=== PATIENT | female | born 1950 | race African-American/Black ===

== ENCOUNTER 2017-07-01 15:29 | Inpatient (IN) ==
[~2017-07-01 15:29] MED LIST: LIDOCAINE 100 MG/5 ML SYRINGE ONE; PROPOFOL 200 MG/20 ML VIAL IV ONE
--- NOTE | 2017-07-01 16:46 | CT Report ---
CT head/brain wo con INDICATION: Fall Headache The total DLP is 997 mGy*cm. COMPARISON: None available Technique: Serial axial tomographic images of the brain were obtained without the use of intravenous contrast. Dose reduction: This CT exam was performed using one or more of the following dose reduction techniques: Automated exposure control, automated adjustment of the mA and/or KV according to patient size, or use of iterative reconstruction technique. Findings: Mild generalized atrophy is noted with mild prominence of the sulci and cortical volume loss. Mild periventricular white matter hypodensity changes are noted bilaterally which do not demonstrate mass effect and are nonspecific but favored to represent sequela of chronic microvascular ischemia. There is no evidence of vascular territory infarct or acute intracranial hemorrhage. The zelaya-white matter differentiation is generally maintained. There is no hydrocephalus. The basilar cisterns are patent. The visualized paranasal sinuses, mastoid air cells and middle ear cavities are predominantly clear. The included orbits and their contents appear within normal limits. The visualized osseous structures and overlying soft tissues of the skull and face demonstrate no acute abnormality. IMPRESSION: No acute intracranial abnormality. PROCEDURE INTERPRETED AT [facility] DEPARTMENT OF RADIOLOGY Final Report Signed by: Brendan Orozco
--- NOTE | 2017-07-01 16:51 | CT Report ---
Indication: Fall, facial injury/pain swelling right side Comparison: None available Technique: Multiple axial tomographic thin slice images were obtained of the facial bones without the use of IV contrast. Coronal and sagittal reformations were obtained. Total DLP: 677.5 Dose reduction: This CT exam was performed using one or more of the following dose reduction techniques: Automated exposure control, automated adjustment of the mA and/or KV according to patient size, or use of iterative reconstruction technique. Findings: The orbits and orbital contents are unremarkable. The visualized paranasal sinuses, mastoid air cells and middle ear cavities are clear. The inner ear structures appear within normal limits. Mandible and temporomandibular joints appear intact and symmetric. The visualized brain parenchyma appears within normal limits. Minimal right facial soft tissue swelling is noted about the right cheek. There is extensive streak artifact from dental hardware which somewhat limits evaluation. No obvious focal soft tissue hematoma is visualized. IMPRESSION: No CT evidence of acute osseous facial injury. Right facial soft tissue swelling. PROCEDURE INTERPRETED AT [facility] DEPARTMENT OF RADIOLOGY Final Report Signed by: Brendan Orozco
[2017-07-01 17:09] LABS: Basophils % 0.3 % (0.0-0.8); Eosinophils % 0.3 % (0.00-10.9); Hematocrit 21.2 VOL% (35.7-47.0); Immature Granulocytes % 0.5 %; Immature Granulocytes Absolute 0.04 #; Lymphocytes # 0.9 10*3/uL (1.4-4.0); Lymphocytes % 12.1 % (21.3-54.2); Mean Corpuscular HGB Conc 29.2 GM/DL (32-36); Mean Corpuscular Hemoglobin 25 PG (27-34); Mean Corpuscular Volume 86.2 FL (87-102); Mean Platelet Volume 10.8 FL (9.6-12.0); Monocytes # 0.5 10*3/uL (0.11-0.8); Monocytes % 7.1 % (1.7-12.7); NRBC # 0.02 10*3/uL; Neutrophils # 5.9 10*3/uL (1.4-7.4); Neutrophils % 79.7 % (38.7-73.9); Platelet Count 242 T/CUMM (130-400); Red Blood Count 2.46 MC/CUMM (3.8-5.5); Red Cell Distribution Width 20.3 % (9.3-17.3); White Blood Count 7.4 T/CUMM (4-12)
[2017-07-01 17:13] LABS: Hemoglobin 6.2 GM/DL (12.0-16.0)
[2017-07-01 17:34] LABS: Albumin 3.4 G/DL (3.4-5.0); Bilirubin,Total 1.2 MG/DL (0.2-1.0); Calcium 8.9 MG/DL (8.5-10.1); Osmolality,Calculated 267.1 MOS/KG (273-304); Potassium 3.5 MMOL/L (3.5-5.1); Total Protein 7.9 G/DL (6.4-8.3)
[2017-07-01] MEDS ORDERED: LORazepam 2 MG/1 ML VIAL IV PRN (17:41)
[2017-07-01] MEDS ORDERED: SODIUM CHLORIDE 0.9% 250 ML IV PRN (17:42)
[2017-07-01] MEDS ORDERED: ONDANSETRON 4 MG/2 ML VIAL IV PRN (17:42)
--- NOTE | 2017-07-01 17:54 | Emergency Department Note ---
IYvon Emily, am scribing for, and in the presence of, Stu Pagan MD 16:11. ILatasha Phillip K, MD, personally performed the services described in this documentation, ascribed by Lula Sanz in my presence, and it is both accurate and complete 754 . Arrival - Arrival Chief Complaint: Fall Stated Complaint: falls ED Nursing Triage Note: Pt arrived via ems with complaint of frequent falls. Family reports ETOH abuse that has resulted in these frequent falls. Pt states she's stressed out. States her equilibrium is off and that's why she has been falling. PMH: cabg, htn, cad, arthritis, bronchitis. Pt just moved her approx 1 month ago-- no PCP here. Pt smells of alcohol. EMS reports several empty bottles of vodka. Mode of Arrival: Stretcher Limitations: No Limitations Source: Patient - History of Present Illness HPI Narrative: Pt is a 66 y/o female who came to ED by EMS for further evaluation of syncopal episode that happened this afternoon. Pt notes having hx of "black outs" in the past. Pt states maintenance ijeoma saw episode while installing microwave while in room at [facility]. States her equilibrium is off and that's why she has been falling. PMH: CABG, HTN, CAD,HLD, arthritis, bronchitis , gout, anemic. Pt just moved her approx 1 month ago. Pt admits to decreasing tobacco smoking a day, but drinks ETOH of beer and vodka 3x day. Pt notes drinking before syncopal episode. Pt c/o right sided facial pain. Pt notes having "knot" in head since last year that never completely healed. Onset (ago): hour(s) Consistency: constant Severity: mild, moderate Severity scale (1-10): 4 Quality: aching Allergies/Adverse Reactions: Allergies Allergy/AdvReac Type Severity Reaction Status Date / Time acetaminophen [From Percocet] Allergy Unknown/Unable Verified 07/01/17 15:38 to obtain Iodinated Contrast Media - Allergy Unknown/Unable Verified 07/01/17 15:38 Oral and to obtain iron Allergy Unknown/Unable Verified 07/01/17 15:38 to obtain Oxycodone [From Percocet] Allergy Unknown/Unable Verified 07/01/17 15:38 to obtain Shellfish Allergy Unknown/Unable Verified 07/01/17 15:38 to obtain Review of System - Review of System 12 point system: reviewed and no additional remarkable complaints except as stated Medical,Surgical,& Family Hx - Medical History Cardio: History of: Cerebrovascular Disease, CAD, Hypertension, Cardiovascular Problems Endocrine: History of: Dyslipidemia Gastrointestinal: History of: Diverticulitis/ Diverticulosis - Surgical History Cardiac Surgeries: Sugical HX of: Cardiac Surgery - Social History Smoking Status: Smoker, status unknown Frequency of Alcohol Use: Frequently Type of Drug Use: None Marital Status: Single Lives With:: [facility] Functional capacity: independent ambulation Exam Vital Signs: Vital Signs Temperature 97.9 F 07/01/17 15:30 Pulse Rate 76 07/01/17 17:00 Respiratory Rate 17 07/01/17 17:00 Blood Pressure 122/75 07/01/17 17:00 O2 Sat by Pulse Oximetry 99 07/01/17 17:00 - General General appearance: alert, in no apparent distress, appears intoxicated - Head Head exam: Present: atraumatic, normocephalic, other (ecchymosis and mild edema to right side of face) - Eye Eye exam: Present: PERRL, EOMI, scleral icterus (mild), other - ENT ENT exam: Present: mucous membranes moist. Absent: mucous membranes dry - Neck Neck exam: Present: full ROM, trachea midline. Absent: tenderness - Chest Chest inspection: Present: symmetric chest wall rise. Absent: tenderness - Respiratory Respiratory exam: Present: normal lung sounds bilaterally. Absent: respiratory distress - Cardiovascular Cardiovascular exam: Present: regular rate, normal rhythm, normal heart sounds - Extremities Exam Extremities exam: Present: full ROM. Absent: pedal edema - Neurological Exam Neurological exam: Present: alert, oriented X3, CN II-XII intact. Absent: motor sensory deficit - Psychiatric Psychiatric exam: Present: normal affect, normal mood - Skin Skin exam: Present: warm, dry Results - Labs CBC & BMP: 07/01/17 16:56 07/01/17 16:56 Lab Results: I have reviewed the patients labs Labs: Laboratory Tests 07/01/17 16:56 WBC 7.4 RBC 2.46 L Hgb 6.2 L* Hct 21.2 L MCV 86.2 L MCH 25 L MCHC 29.2 L RDW 20.3 H Plt Count 242 Neut % (Auto) 79.7 H Lymph % (Auto) 12.1 L Lymph # (Auto) 0.9 L Laboratory Tests 07/01/17 16:56 Sodium 135 L Potassium 3.5 Chloride 99 Carbon Dioxide 23 Anion Gap 16.5 H BUN 10 Creatinine 0.80 GFR Calculation 90 BUN/Creatinine Ratio 12.00 Glucose 83 Calculated Osmolality 267.1 L Calcium 8.9 Total Bilirubin 1.20 H AST 98 H ALT 159 H Alkaline Phosphatase 211 H Total Protein 7.9 Albumin 3.4 Globulin 4.5 H Albumin/Globulin Ratio 0.7 L Serum Alcohol 285 - Diagnostic Findings Procedure: CT: report reviewed by me (Face: No CT evidence of acute osseous facial injury. Right facial soft tissue swelling. Head wo con: No acute intracranial abnormality.) Disposition Clinical Impression: Syncope, Alcohol abuse, Anemia Case discussed with: patient, patient's family Disposition: Still a Patient Condition: Guarded Additional Instructions: Admit to the hospitalist.
[2017-07-01 18:06] LABS: % Iron Saturation 10.9 % (18-50); Ferritin 44.8 ng/ml (8-252)
--- NOTE | 2017-07-01 18:20 | Hospitalist History & Physical ---
Assessment and Plan (1) Alcohol abuse Status: Acute Assessment and plan: At the time of ED presentation, the patient was grossly intoxicated with an alcohol level reported at 285. The patient reported that she drinks daily; however denies any issues when she does not drink. We will start the CIWA withdrawal protocol. We will provide vitamin supplementation and monitor for impending signs or symptoms of delirium tremens. Current Visit: Yes (2) Anemia Status: Acute Assessment and plan: The patient was grossly anemic at the time of ED presentation; with a hemoglobin hematocrit noted at 6.2 and 21.2. The patient reports that she is chronically anemic and was ordered to take iron supplements. We will type and screen and transfuse 2 units PRBCs. In addition, the patient reported that she has a previous medical history of diverticulitis and gastroesophageal reflux disease; which we will consult gastroenterology to evaluate and assist. Current Visit: Yes Qualifiers: Anemia type: unspecified type Qualified Code(s): D64.9 - Anemia, unspecified (3) Syncope Status: Acute Assessment and plan: The patient reported multiple episodes of "blacking out" in the past. Due to the severity of the patient's alcoholism, this may be largely attributed to alcohol intoxication. However, the patient has a medical history significant for coronary artery disease and hyperlipidemia. We will perform a syncope workup; carotid Doppler studies and echocardiogram. We will provide supportive care. Current Visit: Yes Qualifiers: Syncope type: unspecified Qualified Code(s): R55 - Syncope and collapse (4) Medical non-compliance Status: Acute Assessment and plan: The patient's family member was present at bedside. The family member voiced multiple concerns regarding the patient's current status. They reported that the patient had been living alone in [place] for several years and seemingly lost interest in her care. They became concerned about the patient's overall well-being and brought the patient back to [place] 1 month ago. They report that the patient has suffered from depression for many years and has been largely noncompliant for the last couple of years. At the time of ED presentation, the family presented with the patient's home medications all of which were nearly full. We will consult oncology social worker to evaluate the patient 's current living situation. Current Visit: Yes History of Present Illness Chief complaint: Fall History of present illness: This is a very pleasant 66-year-old female that presented to the ED at [facility] this afternoon via EMS for the evaluation of a fall. The patient has a medical history significant for coronary artery disease, hyperlipidemia, gastroesophageal reflux disease, depression, diverticulitis, hypothyroidism, gouty arthritis, nicotine addiction, anemia, and alcohol abuse. Patient has surgical history significant for coronary artery bypass graft in 2010 and tubal ligation. The patient is a resident at [facility]. Apparently, the patient was observed following by the maintenance staff at the facility. He proceeded to notify the staff who then in turn called 911. The patient was subsequently transported to [facility] for further evaluation. The patient was assessed at the time of ED presentation. The patient reported that she has had a long-standing history of "blackouts". She reported that her "equilibrium has been off" and attributed this to her recurrent falls. In addition, the EMS staff reported the presence of multiple empty bottles of vodka surrounding the patient at the time of arrival. When asked, the patient reports that she drinks "beer and vodka 3 times a day". In addition, reported that she had been previously drinking prior to the fall and complaint of right- sided facial pain. Labs were obtained at the time of ED presentation which were significant for hemoglobin 6.2, hematocrit 21.2, sodium 135, anion gap 16.5, calculated osmolality 267.1, TIBC 477, percent saturation 10.9, total bilirubin 1.20, AST 98, ALT 159, alkaline phosphatase 211, and lipase at 314. Serum alcohol level was noted at 285. CT face was unremarkable for the presence of any evidence of acute osseous facial injury. CT head was unremarkable for any acute intracranial abnormality. After brief discussion with both Dr. Pagan and Dr. Diaz, the patient will be admitted to the hospitalist service for continuation of care. Due to the patient's underlying alcohol addiction, we will initiate the [place] withdrawal protocol. In addition, we will consult gastroenterology to evaluate and assist during the clinical encounter. The patient's home medications have been reviewed and reconciled. CODE STATUS discussed; patient is a FULL CODE. The patient's family member was present at bedside. The family member voiced multiple concerns regarding the patient's current status. They reported that the patient had been living alone in [place] for several years and seemingly lost interest in her care. They became concerned about the patient's overall well-being and brought the patient back to [place] 1 month ago. They report that the patient has suffered from depression for many years and has been largely noncompliant for the last couple of years. At the time of ED presentation, the family presented with the patient's home medications all of which were nearly full. We will consult oncology social worker to evaluate the patient 's current living situation. Home Medications Medication Instructions Recorded Confirmed Type Allopurinol 100 mg PO DAILY 07/01/17 07/01/17 History Citalopram [CeleXA] 20 mg PO DAILY 07/01/17 07/01/17 History Esomeprazole Magnesium 40 mg PO BID 07/01/17 07/01/17 History [Esomeprazole] Ferrous Sulfate [Iron] 325 mg PO DAILY 07/01/17 07/01/17 History Folic Acid Tab 1 mg PO DAILY 07/01/17 07/01/17 History Levothyroxine Tab [Synthroid Tab] 200 mcg PO DAILY@0700 07/01/17 07/01/17 History Losartan [Cozaar] 25 mg PO DAILY 07/01/17 07/01/17 History Pregabalin [Lyrica] 50 mg PO TID 07/01/17 07/01/17 History Rosuvastatin Calcium [Crestor] 40 mg PO QPM 07/01/17 07/01/17 History traMADol TAB [Ultram] 50 mg PO Q6H PRN 07/01/17 07/01/17 History Allergies Allergy/AdvReac Type Severity Reaction Status Date / Time acetaminophen [From Percocet] Allergy Unknown/Unable Verified 07/01/17 15:38 to obtain Iodinated Contrast Media - Allergy Unknown/Unable Verified 07/01/17 15:38 Oral and to obtain iron Allergy Unknown/Unable Verified 07/01/17 15:38 to obtain Oxycodone [From Percocet] Allergy Unknown/Unable Verified 07/01/17 15:38 to obtain Shellfish Allergy Unknown/Unable Verified 07/01/17 15:38 to obtain Medical,Surgical,& Family Hx - Medical History Cardio: History of: Cerebrovascular Disease, CAD, Hypertension, Cardiovascular Problems Endocrine: History of: Dyslipidemia, Thyroid Disorder (Hypothyroid) Gastrointestinal: History of: Diverticulitis/ Diverticulosis, GERD Musculoskeletal: History of: Musculoskeletal Problems (Gouty arthritis) Hematology: History of: Anemia - Surgical History Cardiac Surgeries: Sugical HX of: Cardiac Surgery - Family History Family History: Reports;: Family Cancer, Family Heart Disease, Family Hypertension - Social History Smoking Status: Current every day smoker Have you smoked in the last 12 months: Yes Time spent discussing smoking cessation with patient: 3 to 10 minutes Frequency of Alcohol Use: Frequently Type of Drug Use: None Marital Status: Single Lives With:: Alone Functional capacity: uses cane/walker 12 point system: reviewed and no additional remarkable complaints except as stated - Constitutional Constitutional: Present: frequent falls - Neurological Neurological: Present: frequent falls - Psychiatric Psychiatric: Present: depression Exam - Constitutional Vitals: Period Temp Pulse Resp BP Sys/Cortes Pulse Ox Last 24 Hr 97.9 F-97.9 F 74-78 14-28 100-140/64-89 98-100 General appearance: normal weight, no acute distress - Head Head exam: Present: normal inspection, normocephalic, atraumatic - Eye Eye exam: Present: EOMI, conjunctival injection, other (Abrasion noted to the right eye or) Pupils: Present: KASANDRA, normal accommodation - ENT ENT exam: Present: normal exam, normal external ear exam, normal oropharynx - Neck Neck exam: Present: normal inspection. Absent: lymphadenopathy, meningismus, tenderness, thyromegaly - Respiratory Respiratory exam: Present: clear to auscultation bilaterally. Absent: rales, rhonchi, stridor, wheezes - Cardiovascular Cardiovascular exam: Present: regular rate and rhythm. Absent: carotid bruit, diastolic murmur, gallop, JVD, rubs, systolic murmur - GI/Abdominal GI/Abdominal exam: Present: normal bowel sounds, rebound - Extremities Exam Extremities exam: Present: normal inspection, normal capillary refill, full ROM. Absent: edema - Back Exam Back exam: Present: normal inspection - Neurological Exam Neurological exam: Present: alert, oriented X3, CN II-XII intact - Psychiatric Psychiatric exam: Present: flat affect - Skin Skin exam: Present: normal color, warm, dry Results - Labs CBC & BMP: 07/01/17 16:56 07/01/17 16:56 Lab Results: I have reviewed the past 24 hour labs
[2017-07-01 18:49] LABS: Folate 18.3 NG/ML (5.4-24.0)
[2017-07-01] MEDS ORDERED: NON-FORMULARY MEDICATION (Esomeprazole Magnesium [Esomeprazole] 40 MG) PO PRN (19:38)
[2017-07-01] MEDS: SODIUM CHLORIDE 0.9% 1,000 ML IV SCH (20:14)
--- NOTE | 2017-07-01 20:15 | Gastrointestinal Consult Note ---
Assessment and Plan (1) Gastrointestinal hemorrhage with melena Status: Acute Assessment and plan: This patient states that she has had previous workup done at [facility] with upper endoscopy for ulcers in the past and that these did require treatment. Is unclear if alcohol played a major part in these previous evaluations and the patient does not seem to admit to any esophageal varices requiring banding's. Her platelet level is normal and this tends to rule against cirrhosis as does her normal MCV level. There is an element of iron deficiency present this may be partially treated. The patient states that she is typically on Nexium and this suppresses her heartburn, but it is unclear whether this is a medication she takes regularly as she has a history of noncompliance. Patient understands there are risks with endoscopy and these include: Bleeding, infection, perforation, cardiac and pulmonary compromise. Patient is to undergo a repeat upper endoscopy tomorrow at sometime between 0730 and 0930. Differential diagnosis includes esophageal or gastric cancer, Veronica-Palomino tear, variceal bleeding, erosive gastritis or duodenitis or esophagitis, AVMs, Dieulafoy's lesion and peptic ulcer disease. Current Visit: Yes (2) Acute posthemorrhagic anemia Status: Acute Assessment and plan: Patient certainly has melena on physical examination she is due to get 2 units packed red blood cells tonight. Upper endoscopy to take place tomorrow morning as mentioned above. Current Visit: Yes (3) Alcoholism Status: Acute Assessment and plan: This patient has elevations in her liver function tests that appear perhaps more consistent with a viral hepatitis given the ALT predominance. I will go ahead and check a hepatitis A, B, and C panel to this end. We will try and obtain records from [facility] considering patient's endoscopy and GI workup. Alcohol withdrawal may take place the next 48-72 hours now that she is no longer drinking--we will need to watch for this. The patient has rather poor insight concerning her drinking and we will need to reinforce the need to be off of all alcohol intake. Current Visit: Yes (4) Abnormal weight loss Status: Acute Assessment and plan: If the patient has had previous colonoscopy done to rule out colon cancer and previous upper endoscopy we might want to obtain biopsies for celiac sprue given her abnormal weight loss. This may be related purely to depression or perhaps suppression of the appetite due to the alcohol intake or other factors unrelated such as thyroid dysfunction. Will continue to monitor weight loss over time. Currently the patient's has dropped from her baseline of 170 down to 137 she states over the last 3 months. We will have to watch her appetite and see if these losses continue once the patient has more routine access to solid food. Current Visit: Yes History of Present Illness Chief complaint: Melena, grossly guaiac positive, hematocrit of 21.2%, alcoholism History of present illness: Ms. Mallika Wiggins is a 66 year old female who is an interesting moderately demented lady who until recently lived in [facility] and states that she had had a cardiac bypass and a been on number of blood pressure medications which were unfortunately contributing to her dizziness and minimizes her drinking in the extreme. There were no other family members in the room to provide additional history and so history is taken from Dr. Haq's H&P. She states that she has had black stools over, and that she has a history of ulcers in the past the last few weeks but did not elaborate as to whether or not she had previously been diagnosed with Helicobacter pylori or whether these were due entirely to alcoholic gastritis. She is not having any abdominal pain nausea or vomiting she states. She does not recognize the term esophageal varices and does not think that she is ever been banded for same. She says that she is undergone endoscopy 3 times in the past--all of these done at [facility] in [place], other than the ulcers she cannot elaborate as to what else was discovered. She was surprised to hear that her hematocrit was as low as 21.2% with a hemoglobin of 6.2 at this time. She is getting 2 units of packed red blood cells now and is discovered to have grossly guaiac positive black stools on physical exam and will require upper endoscopy tomorrow in order to elucidate the cause. The patient states that she did have reflux prior to being started on Nexium but takes this chronically. She states that she avoids NSAIDs fastidiously although she does have a history of gout. She states that her weight is certainly dropped over the last 3 months going down from 170 pounds at her baseline to 137 pounds currently. She denies diarrhea and constipation. She states that she might have blacked out today but denies this had anything to do with the amount of consumed alcohol discovered by her family. She insists that she only drinks approximately a pint of vodka per day at least to Dr. Haq and the nursing staff to me she stated this was actually a pint a week. The patient does have what appears to be a partially treated iron deficiency anemia with an iron saturation of 10.9. ALT was 159 with an AST of 98 and alkaline phosphatase of 211 with a bilirubin of 1.2. B12 level was normal as was folate. The patient's hematocrit was 21.2 with a hemoglobin of 6.2 and MCV of 86.2 RDW is 20.3 and white blood cell count 7.4 with a platelet count 242. Home Medications Medication Instructions Recorded Confirmed Type Allopurinol 100 mg PO QAM 07/01/17 07/01/17 History Citalopram [CeleXA] 20 mg PO QAM 07/01/17 07/01/17 History Esomeprazole Magnesium 40 mg PO BID PRN 07/01/17 07/01/17 History [Esomeprazole] Ferrous Sulfate [Iron] 325 mg PO QAM 07/01/17 07/01/17 History Folic Acid Tab 1 mg PO QAM 07/01/17 07/01/17 History Levothyroxine Tab [Synthroid Tab] 200 mcg PO DAILY@0700 07/01/17 07/01/17 History Losartan [Cozaar] 25 mg PO QAM 07/01/17 07/01/17 History Rosuvastatin Calcium [Crestor] 40 mg PO QAM 07/01/17 07/01/17 History Allergies Allergy/AdvReac Type Severity Reaction Status Date / Time acetaminophen [From Percocet] Allergy Unknown/Unable Verified 07/01/17 15:38 to obtain Iodinated Contrast Media - Allergy Unknown/Unable Verified 07/01/17 15:38 Oral and to obtain iron Allergy Unknown/Unable Verified 07/01/17 15:38 to obtain Oxycodone [From Percocet] Allergy Unknown/Unable Verified 07/01/17 15:38 to obtain Shellfish Allergy Unknown/Unable Verified 07/01/17 15:38 to obtain Medical,Surgical,& Family Hx - Medical History Cardio: History of: Cerebrovascular Disease, CAD, Hypertension, Cardiovascular Problems Endocrine: History of: Dyslipidemia, Thyroid Disorder (Hypothyroid) Gastrointestinal: History of: Diverticulitis/ Diverticulosis, GERD Musculoskeletal: History of: Musculoskeletal Problems (Gouty arthritis) Hematology: History of: Anemia - Surgical History Cardiac Surgeries: Sugical HX of: Cardiac Surgery - Family History Family History: Reports;: Family Cancer, Family Heart Disease, Family Hypertension - Social History Smoking Status: Light tobacco smoker Frequency of Alcohol Use: Frequently Type of Drug Use: None Review of systems: Constitutional: Denies fever, chills, nausea, and vomiting Eyes: Denies dry eyes, and scleral icterus HENT: Patient does have occasional headaches Cardiovascular: Denies acute chest pain and claudication Respiratory: Denies shortness of breath, wheezing, and difficulty breathing, denies cough Gastrointestinal: As noted in the HPI Genitourinary: Denies dysuria and hematuria Neurologic: Denies vision loss, and loss of sensation Musculoskeletal: Denies joint swelling, joint stiffness, and muscular weakness Psychiatric: Patient does complain of some depression but no avelino symptoms , she does have alcoholism and insomnia. Heme-Lymph: Denies easy bruising, lymph node enlargement or tenderness, night sweats, excessive bleeding Allergies-immunologic: Denies pruritus and rhinorrhea Exam - Constitutional Vitals: Period Temp Pulse Resp BP Sys/Cortes Pulse Ox Last 24 Hr 97.6 F-97.9 F 74-81 14-28 100-140/64-89 98-100 Exam: Constitutional: Well-developed, well-nourished, alert, and in no acute distress Head and face: Head: Normocephalic atraumatic Eyes: Conjunctiva without injection, no gross scleral icterus, pupils equal and round bilaterally Ears: Intact to conversation in both ears Nose: External appearance is normal, nares patent Mouth: Oral mucous membranes moist without erythema dentition noted to be without erosion Neck: Normal appearance, no masses or tenderness, trachea midline Thyroid: Gland midline and appropriate size for age Respiratory: Normal respiratory effort, clear to auscultation without wheezes, rhonchi or rales Cardiovascular: Regular rate and rhythm, normal S1, S2, the exam is without rubs, murmurs or gallops. Gastrointestinal: Nontender to palpation, normal active bowel sounds, tone normal without rigidity or guarding, no masses present, no hepatomegaly, no spleen tip felt. Rectal examination showed slightly decreased tone, redundancy of hemorrhoidal tissue and black stools that were grossly guaiac positive. No caput medusa Lymphatic: Neck without adenopathy, axilla without lymphadenopathy present Musculoskeletal: Right and left lower extremities without evidence of edema Skin and subcutaneous tissue: No rashes or ulcerations noted, normal skin turgor, digits and nails without clubbing/cyanosis/deformities. Neurologic: The patient is grossly oriented to person place and time, cranial nerves show tongue movements are normal with normal tongue extrusion midline, light touch sensation is intact. I could not elicit any asterixis or clonus. Psychiatric: No hallucinations or delusions are present, does not appear depressed--the patient appears to have some dementia and as well as flight of ideas and is extremely loquacious. Results - Labs CBC & BMP: 07/01/17 16:56 07/01/17 16:56
[2017-07-01] MEDS: PANTOPRAZOLE 40 MG TABLET PO SCH (21:05)
[2017-07-01] MEDS: chlordiazePOXIDE 25 MG CAPSULE PO SCH (21:05)
[2017-07-01 21:38] LABS: Hematocrit 20.4 VOL% (35.7-47.0)
[2017-07-01 21:44] LABS: Hemoglobin 5.8 GM/DL (12.0-16.0)
[2017-07-01] MEDS: THIAMINE INJ 100 MG, FOLIC ACID INJ 1 MG, MULTIVITAMIN INJ 10 ML in SODIUM CHLORIDE 0.9... IV SCH (23:50)
--- NOTE | 2017-07-02 08:11 | Ultrasound Report ---
Exam: US carotid duplex BI Date: 07/02/2017 656 AM Indication: Syncope Findings: Grayscale color flow analysis and spectral analysis imaging was performed with image stored and captured. Right Side Flow velocities centimeters per second Common carotid artery: 52.0 Proximal ICA: 68.6 Distal ICA: 47.7 External carotid artery: 92.1 Vertebral artery: 37.7 ICA/CCA ratio: 1.3 Measurements in millimeters Distal ICA: 4.9 Left SIde Flow velocities centimeters per second Common carotid artery: 59.4 Proximal ICA: 92.7 Distal ICA: 74.1 External carotid artery: 118.3 Vertebral artery: 13.7 ICA/CCA ratio: 1.2 Measurements in millimeters Distal ICA: 5.3 Triphasic waveforms are present. Atherosclerotic plaque present in the right carotid bulb with intimal hyperplasia present in the common carotid artery on the right. Plaque is present in the left carotid bulb and takeoff the internal carotid artery. Impression: 1. 16-49% stenosis based on the today's evaluation with moderate plaque present right greater than left. If further evaluation is deemed necessary CT angiography may be beneficial Today studies were performed utilizing indirect NASCET criteria The ultrasound images were stored and captured PROCEDURE INTERPRETED AT [facility] DEPARTMENT OF RADIOLOGY Final Report Signed by: Dr. Ryley Zendejas
[2017-07-02] MEDS ORDERED: PANTOPRAZOLE 40 MG TABLET PO SCH (09:00)
--- NOTE | 2017-07-02 09:10 | Operative Note ---
Date of procedure: 07/02/17 Pre-op diagnosis: Melena and drop in hematocrit to 20% Post-op diagnosis: other (No gross evidence of bleeding in the esophagus or stomach, certainly not enough to cause this level of anemia with hematocrit 20% . This may be a Dieulafoy's lesion or nutritional anemia with bone marrow suppression by alcohol. Suggest standard reticulocyte count, will obtain bleeding scan if her hematocrit does not respond adequately to the units transfused thus far. Multiple biopsies taken and so bleeding scan will not be helpful as it will show upper GI bleeding as a result of these biopsies. We may wish to consider capsule endoscopy if the colonoscopy from [facility] was adequate) Procedure: PROCEDURE: Esophagogastroduodenoscopy (EGD) with cold biopsy for pathology REFERRING PHYSICIAN: Tawny Reyes MD INDICATIONS: This is a patient who has had previous GI workup at [facility] in [place] with upper and lower endoscopies. She was told that she has ulcers. She has a history of alcohol use with daily vodka approximately a pint, by report the prior H&P was reviewed and interrim changes are as noted: No change from GI consultation yesterday ENDOSCOPIST: Alan Duncan MD ENDOSCOPE: Olympus Video 100 System upper endoscope ASA CLASS: 3 EXAM: CV: regular rate and rhythm respiratory: Clear without wheezes abdominal: active bowel sounds MEDICATION: Per nursing anesthesia protocol, see their notes PROCEDURE: After discussion of the potential risks and benefits of upper endoscopy, the informed consent was obtained. The patient was then placed in the left lateral decubitus position where sedation was achieved as noted above. Esophageal intubation was performed without difficulty, and the endoscope was advanced through the esophagus, stomach and duodenum. A slow withdrawal was then performed with retroflexion in the stomach for careful inspection of the incisura angularis, fundus and cardia. The scope was then returned to a neutral position and withdrawn through the esophagus. The patient tolerated the procedure well and without complication. BIOPSIES: Gastric antrum/body and duodenum PHOTOGRAPHS: Obtained FINDINGS: Hypopharynx and Larynx: Normal Esohagoscopy Upper and middle thirds: Normal Lower third mild LA class A distal esophagitis 1 cm Esophogastric junctions: No gross evidence of Veronica-Palomino tear, stricturing, bleeding source Gastroscopy: Cardia/Fundus: 2 cm hiatal hernia, sliding-type, scant amount of retained food in the fundus/body Body: Moderate patchy nonerosive gastritis, biopsied Antrum and pylorus moderate patchy nonerosive gastritis, biopsied Duodenoscopy: Bulb Patient had areas of villous loss suspicious for sprue, biopsied Second and third portions: This patient had some villous loss suspicious for celiac sprue, biopsied IMPRESSION: No gross evidence of bleeding in the esophagus or stomach, certainly not enough to cause this level of anemia with hematocrit 20%. This may be a Dieulafoy's lesion or nutritional anemia with bone marrow suppression by alcohol. Suggest standard reticulocyte count, will obtain bleeding scan if her hematocrit does not respond adequately to the units transfused thus far. Multiple biopsies taken and so bleeding scan will not be helpful as it will show upper GI bleeding as a result of these biopsies. We may wish to consider capsule endoscopy if the colonoscopy from [facility] was adequate RECOMMENDATIONS: Follow up for biopsy results in 1-2 weeks by phone [phone] Continue anti-gastroesophageal reflux measures (avoid carbonated and acidic beverages, avoid eating within 2 hours of bedtime, avoid tight fitting clothing , and elevate the front bed posts 6 inches prior to sleeping. Obtain old records from [facility] Observe patient's hematocrit as she begins to eat again. Await biopsies taken for celiac sprue. Consider capsule endoscopy if patient continues to have blood loss. Continue Protonix 40 mg at least once daily. Alan Duncan MD COPY TO: Tawny Reyes MD Anesthesia: MAC Surgeon / Physician: Alan Duncan Estimated blood loss: minimal Specimens: other (Gastric antrum/body and duodenum) Condition: stable Disposition: post procedure unit (G[facility]I. Suite) Results - Labs CBC & BMP: 07/01/17 21:31 07/01/17 16:56 Discharge Plan - Discharge Medications No Action Folic Acid Tab 1 mg PO QAM Rosuvastatin Calcium [Crestor] 40 mg PO QAM Esomeprazole Magnesium [Esomeprazole] 40 mg PO BID PRN PRN Reason: acid reflux Levothyroxine Tab [Synthroid Tab] 200 mcg PO DAILY@0700 Citalopram [CeleXA] 20 mg PO QAM Ferrous Sulfate [Iron] 325 mg PO QAM Allopurinol 100 mg PO QAM Losartan [Cozaar] 25 mg PO QAM Pregabalin [Lyrica] 50 mg PO TID Tramadol HCl [Tramadol Tab] 50 tablet PO Q6HR PRN PRN Reason: Pain - Follow Up or Referral - Forms/Instructions
--- NOTE | 2017-07-02 09:13 | Gastrointestinal Progress Note ---
Assessment and Plan (1) Gastrointestinal hemorrhage with melena Status: Acute Assessment and plan: This patient states that she has had previous workup done at [facility] with upper endoscopy for ulcers in the past and that these did require treatment. Is unclear if alcohol played a major part in these previous evaluations and the patient does not seem to admit to any esophageal varices requiring banding's. Her platelet level is normal and this tends to rule against cirrhosis as does her normal MCV level. There is an element of iron deficiency present this may be partially treated. The patient states that she is typically on Nexium and this suppresses her heartburn, but it is unclear whether this is a medication she takes regularly as she has a history of noncompliance. Patient understands there are risks with endoscopy and these include: Bleeding, infection, perforation, cardiac and pulmonary compromise. Patient is to undergo a repeat upper endoscopy tomorrow at sometime between 0730 and 0930. Differential diagnosis includes esophageal or gastric cancer, Veronica-Palomino tear, variceal bleeding, erosive gastritis or duodenitis or esophagitis, AVMs, Dieulafoy's lesion and peptic ulcer disease. 07/02/17--The patient underwent upper endoscopy this morning and this did not show a gross bleeding or an obvious source of the patient's blood loss-- findings are as follows: No gross evidence of bleeding in the esophagus or stomach, certainly not enough to cause this level of anemia with hematocrit 20% . This may be a Dieulafoy's lesion or nutritional anemia with bone marrow suppression by alcohol. Suggest standard reticulocyte count, we might want to obtain bleeding scan if her hematocrit does not respond adequately to the units transfused thus far. I am concerned that if we order the bleeding scan now that the previously obtained biopsies would make this falsely positive in the upper GI tract. We may wish to consider capsule endoscopy if the colonoscopy from [facility] was adequate Current Visit: Yes (2) Acute posthemorrhagic anemia Status: Acute Assessment and plan: Patient certainly has melena on physical examination she is due to get 2 units packed red blood cells tonight. Upper endoscopy to take place tomorrow morning as mentioned above. 07/02/17--observe for further blood loss, await hematocrits from today status post 2 unit transfusion. Current Visit: Yes (3) Alcoholism Status: Acute Assessment and plan: This patient has elevations in her liver function tests that appear perhaps more consistent with a viral hepatitis given the ALT predominance. I will go ahead and check a hepatitis A, B, and C panel to this end. We will try and obtain records from [facility] considering patient's endoscopy and GI workup. Alcohol withdrawal may take place the next 48-72 hours now that she is no longer drinking--we will need to watch for this. The patient has rather poor insight concerning her drinking and we will need to reinforce the need to be off of all alcohol intake. 07/02/17--Continue to observe this patient to see if she goes into the delirium tremens considering her alcohol intake at home. Check hepatitis A, B, and C panel. Current Visit: Yes (4) Abnormal weight loss Status: Acute Assessment and plan: If the patient has had previous colonoscopy done to rule out colon cancer and previous upper endoscopy we might want to obtain biopsies for celiac sprue given her abnormal weight loss. This may be related purely to depression or perhaps suppression of the appetite due to the alcohol intake or other factors unrelated such as thyroid dysfunction. Will continue to monitor weight loss over time. Currently the patient's has dropped from her baseline of 170 down to 137 she states over the last 3 months. We will have to watch her appetite and see if these losses continue once the patient has more routine access to solid food. 07/02/17--We Will see this patient low-sodium diet today and check her appetite-- she is typically on Nexium at home. Check for celiac sprue during biopsies taken today from the endoscopy. Current Visit: Yes Gastroenterology - PN: Subj Interval history: The patient has no new complaints. She did get transfused yesterday but no new hematocrits have been reported yet. It looks like these are not going to be done until 08:30. Exam (Progress Note) - Constitutional Vitals: Period Temp Pulse Resp BP Sys/Cortes Pulse Ox Last 24 Hr 97.3 F-98.3 F 74-96 14-28 75-145/49-99 94-100 General appearance: no acute distress - Eye Eye exam: Present: EOMI - Respiratory Respiratory exam: Present: clear to auscultation bilaterally. Absent: rhonchi, stridor, wheezes - GI/Abdominal GI/Abdominal exam: Present: normal bowel sounds, tenderness (Mild in the epigastric region), soft. Absent: distended, firm, rebound - Neurological Exam Neurological exam: Present: alert, oriented X3, altered (Mild to moderately confused at times) - Psychiatric Psychiatric exam: Present: normal affect, normal mood - Skin Skin exam: Present: warm Results - Labs CBC & BMP: 07/01/17 21:31 07/01/17 16:56
--- NOTE | 2017-07-02 09:13 | Anesthesia Post-Op ---
Anesthesia Post OP - Post Ansesthetic Evaluation Patient seen in post op: Yes Resp: within normal limits CV: within normal limits Mental: within normal limits Temp: within normal limits [id number]: within normal limits Nausea and Vomiting: within normal limits Pain: within normal limits
--- NOTE | 2017-07-02 09:43 | Hospitalist Progress Note ---
Assessment and Plan (1) Alcohol abuse Status: Acute Assessment and plan: At the time of ED presentation, the patient was grossly intoxicated with an alcohol level reported at 285. The patient reported that she drinks daily; however denies any issues when she does not drink. We will start the CIWA withdrawal protocol. We will provide vitamin supplementation and monitor for impending signs or symptoms of delirium tremens. Current Visit: Yes (2) Anemia Status: Acute Assessment and plan: The patient was grossly anemic at the time of ED presentation; with a hemoglobin hematocrit noted at 6.2 and 21.2. The patient reports that she is chronically anemic and was ordered to take iron supplements. We will type and screen and transfuse 2 units PRBCs. In addition, the patient reported that she has a previous medical history of diverticulitis and gastroesophageal reflux disease; which we will consult gastroenterology to evaluate and assist. 07/02-EGD this a.m. per gastroenterology. We will continue hydration and PPIs as previously ordered. We will await EGD results. Current Visit: Yes Qualifiers: Anemia type: unspecified type Qualified Code(s): D64.9 - Anemia, unspecified (3) Syncope Status: Acute Assessment and plan: The patient reported multiple episodes of "blacking out" in the past. Due to the severity of the patient's alcoholism, this may be largely attributed to alcohol intoxication. However, the patient has a medical history significant for coronary artery disease and hyperlipidemia. We will perform a syncope workup; carotid Doppler studies and echocardiogram. We will provide supportive care. 07/02-carotid Dopplers significant for 16-49% stenosis with moderate plaque present right greater than left. Cardiology consultation has been requested. We will await further recommendations. Current Visit: Yes Qualifiers: Syncope type: unspecified Qualified Code(s): R55 - Syncope and collapse (4) Medical non-compliance Status: Acute Assessment and plan: The patient's family member was present at bedside. The family member voiced multiple concerns regarding the patient's current status. They reported that the patient had been living alone in [place] for several years and seemingly lost interest in her care. They became concerned about the patient's overall well-being and brought the patient back to [place] 1 month ago. They report that the patient has suffered from depression for many years and has been largely noncompliant for the last couple of years. At the time of ED presentation, the family presented with the patient's home medications all of which were nearly full. We will consult 7th grade social studies teacher to evaluate the patient 's current living situation. Current Visit: Yes Exam - Constitutional Vitals: Period Temp Pulse Resp BP Sys/Cortes Pulse Ox Last 24 Hr 97.3 F-98.3 F 71-96 14-28 75-145/49-99 94-100 General appearance: normal weight, no acute distress - Head Head exam: Present: normal inspection, normocephalic, atraumatic - Eye Eye exam: Present: EOMI. Absent: conjunctival injection Pupils: Present: KASANDRA, normal accommodation - ENT ENT exam: Present: normal exam, normal external ear exam, normal oropharynx - Neck Neck exam: Present: normal inspection. Absent: lymphadenopathy, meningismus, thyromegaly - Respiratory Respiratory exam: Present: clear to auscultation bilaterally. Absent: rales, rhonchi, stridor, wheezes - Cardiovascular Cardiovascular exam: Present: regular rate and rhythm. Absent: carotid bruit, diastolic murmur, gallop, JVD, rubs, systolic murmur - GI/Abdominal GI/Abdominal exam: Present: normal bowel sounds, soft - Extremities Exam Extremities exam: Present: normal inspection, normal capillary refill, full ROM. Absent: edema - Neurological Exam Neurological exam: Present: alert, oriented X3, altered - Psychiatric Psychiatric exam: Present: flat affect - Skin Skin exam: Present: normal color, warm, dry Results - Labs CBC & BMP: 07/01/17 21:31 07/01/17 16:56
[2017-07-02] MEDS: SODIUM CHLORIDE 0.9% 1,000 ML IV SCH (11:01)
[2017-07-02] MEDS: LEVOTHYROXINE 200 MCG TABLET PO SCH (11:03)
[2017-07-02] MEDS: PANTOPRAZOLE 40 MG TABLET PO SCH ×2 (11:03→20:19)
[2017-07-02 11:04] LABS: Hemoglobin 8.5 GM/DL (12.0-16.0)
[2017-07-02] MEDS: FOLIC ACID 1 MG TABLET PO SCH (11:04)
[2017-07-02] MEDS: CITALOPRAM 20 MG TABLET PO SCH (11:04)
[2017-07-02] MEDS: ROSUVASTATIN 20 MG TABLET PO SCH (11:05)
[2017-07-02] MEDS: ALLOPURINOL 100 MG TABLET PO SCH (11:06)
[2017-07-02] MEDS: LOSARTAN 25 MG TABLET PO SCH (11:06)
[2017-07-02] MEDS: chlordiazePOXIDE 25 MG CAPSULE PO SCH ×4 (11:07→20:19)
[2017-07-02 11:41] LABS: Albumin 2.8 G/DL (3.4-5.0); Bilirubin,Total 0.7 MG/DL (0.2-1.0); Calcium 8.2 MG/DL (8.5-10.1); Osmolality,Calculated 275.4 MOS/KG (273-304); Potassium 3.7 MMOL/L (3.5-5.1); Total Protein 6.4 G/DL (6.4-8.3)
[2017-07-02 11:55] LABS: Magnesium 1.4 MG/DL (1.8-2.4); Risk Ratio 4.38; VLDL CHOLESTEROL 34.4 MG/DL
[2017-07-02] MEDS ORDERED: POTASSIUM CHLORIDE RIDER 10 MEQ in PREMIX 1 EACH IV PRN (11:59)
[2017-07-02] MEDS ORDERED: MAGNESIUM SULF RIDER 4 GM in PREMIX 1 EACH IV PRN (11:59)
[2017-07-02 12:32] LABS: Hepatitis A Ab IgM Quant 0.09 Index; Hepatitis A Ab IgM Result Negative (Negative); Hepatitis B Core IgM Quant 0.39 Index; Hepatitis B Core IgM Result Negative (Negative); Hepatitis B Surface Ag Quant 0.12 Index; Hepatitis B Surface Ag Result Negative (Negative); Hepatitis C Virus Ab Quant 0.05 Index; Hepatitis C Virus Ab Result Negative (Negative)
[2017-07-02] MEDS: MAGNESIUM SULF RIDER 2 GM in PREMIX 1 EACH IV PRN ×2 (12:58→16:19)
--- NOTE | 2017-07-02 14:18 | Hospitalist Progress Note ---
Hospitalist: Subjective Interval history: Ms Mallika Wiggins is doing well today. She becomes tearful when she discussed being lonely and isolated and drinking alcohol when she gets depressed. She would like to stop but on her own has only been able to stop a week at a time. She was found with multiple vodka bottles around her with very high alcohol level. She says her depression started when she found her son has HIV+. She denies pain. She doesn't eat much most of the time. Exam - Constitutional Vitals: Period Temp Pulse Resp BP Sys/Cortes Pulse Ox Last 24 Hr 96.9 F-98.3 F 69-96 14-28 75-174/49-99 94-100 Results - Labs CBC & BMP: 07/02/17 10:51 07/02/17 10:51
--- NOTE | 2017-07-02 15:46 | ECHO Report ---
[facility] Exam Date: 07/02/2017 13:12 Referring Physician: Technologist: armando Navarrete ARDMS, RVT Age: 66 Ht (in): 67 Wt (lb): 137 Gender: F Exam Location: [facility] Echo Indications: Syncope and collapse, CAD, Hx: CABG, Anemia, Alcohol abuse BP: 135 / 73 HR: 82 Rhythm: Sinus Technical Quality: Good IMPRESSIONS Mild left ventricular hypertrophy. Left ventricular ejection fraction is estimated at 65%, Moderate increase in upper septal thickness. 2+ apical LAE. Aortic valve sclerosis , there is no aortic regurgitation. Pulmonary artery systolic pressure is normal. MEASUREMENTS (Male / Female) Normal Values 2D ECHO LV Diastolic Diameter PLAX 4.2 cm 4.2 - 5.9 / 3.9 - 5.3 cm LV Systolic Diameter PLAX 2.1 cm LV Fractional Shortening PLAX 50.7 % IVS Diastolic Thickness 0.9 cm 0.6 - 1.0 / 0.6 - 0.9 cm LVPW Diastolic Thickness 1.3 cm 0.6 - 1.0 / 0.6 - 0.9 cm RV Internal Dim ED PLAX 3.5 cm Aortic Root Diameter 3.6 cm LA Systolic Diameter LX 4.0 cm 3.0 - 4.0 / 2.7 - 3.8 cm FINDINGS Left Ventricle Normal left ventricular cavity size. Mild left ventricular hypertrophy. Left ventricular ejection fraction is estimated at 65%, Moderate increase in upper septal thickness Right Ventricle The right ventricle is normal in size and function. Right Atrium The right atrium is normal in size. Left Atrium 2+ apical LAE Mitral Valve Morphologically normal mitral valve without significant stenosis or prolapse. There is no mitral regurgitation. Aortic Valve Aortic valve sclerosis , there is no aortic regurgitation. Tricuspid Valve Morphologically normal tricuspid valve without significant stenosis or regurgitation. Pulmonary artery systolic pressure is normal. Pulmonic Valve Morphologically normal pulmonic valve without significant stenosis. There is no pulmonic regurgitation. Pericardium Normal pericardium without effusion. Aorta Normal ascending aorta dimension. Duarte Lara MD (Electronically Signed) Final Date: 02 July 2017 15:45
[2017-07-02 16:53] LABS: Hematocrit 25.8 VOL% (35.7-47.0); Hemoglobin 8.2 GM/DL (12.0-16.0)
[2017-07-02] MEDS: THIAMINE INJ 100 MG, FOLIC ACID INJ 1 MG, MULTIVITAMIN INJ 10 ML in SODIUM CHLORIDE 0.9... IV SCH (20:17)
[2017-07-02 21:23] LABS: Hematocrit 24.7 VOL% (35.7-47.0); Hemoglobin 7.7 GM/DL (12.0-16.0)
[2017-07-03 06:11] LABS: Basophils # 0.1 10*3/uL (0.0-0.2); Basophils % 0.7 % (0.0-0.8); Eosinophils # 0.1 10*3/uL (0.0-0.87); Eosinophils % 1.8 % (0.00-10.9); Hematocrit 25.4 VOL% (35.7-47.0); Hemoglobin 7.9 GM/DL (12.0-16.0); Immature Granulocytes % 0.5 %; Immature Granulocytes Absolute 0.04 #; Lymphocytes # 0.8 10*3/uL (1.4-4.0); Lymphocytes % 10.5 % (21.3-54.2); Mean Corpuscular HGB Conc 31.1 GM/DL (32-36); Mean Corpuscular Hemoglobin 27 PG (27-34); Mean Corpuscular Volume 86.1 FL (87-102); Mean Platelet Volume 10.6 FL (9.6-12.0); Monocytes # 0.8 10*3/uL (0.11-0.8); Monocytes % 10.6 % (1.7-12.7); Neutrophils # 5.6 10*3/uL (1.4-7.4); Neutrophils % 75.9 % (38.7-73.9); Platelet Count 165 T/CUMM (130-400); Red Blood Count 2.95 MC/CUMM (3.8-5.5); Red Cell Distribution Width 17.4 % (9.3-17.3); White Blood Count 7.4 T/CUMM (4-12)
[2017-07-03] MEDS: LEVOTHYROXINE 200 MCG TABLET PO SCH (06:35)
[2017-07-03 06:42] LABS: Albumin 2.3 G/DL (3.4-5.0); Bilirubin,Total 1.4 MG/DL (0.2-1.0); Calcium 7.8 MG/DL (8.5-10.1); Osmolality,Calculated 273.7 MOS/KG (273-304); Potassium 3.4 MMOL/L (3.5-5.1); Total Protein 5.4 G/DL (6.4-8.3)
[2017-07-03] MEDS: SODIUM CHLORIDE 0.9% 1,000 ML IV SCH ×2 (08:02→10:59)
[2017-07-03 09:26] LABS: Hematocrit 27.4 VOL% (35.7-47.0); Hemoglobin 8.5 GM/DL (12.0-16.0)
[2017-07-03] MEDS: ROSUVASTATIN 20 MG TABLET PO SCH (09:57)
[2017-07-03] MEDS: CITALOPRAM 20 MG TABLET PO SCH (09:58)
[2017-07-03] MEDS: chlordiazePOXIDE 25 MG CAPSULE PO SCH ×4 (09:59→21:12)
[2017-07-03] MEDS: LOSARTAN 25 MG TABLET PO SCH (09:59)
[2017-07-03] MEDS: ALLOPURINOL 100 MG TABLET PO SCH (09:59)
[2017-07-03] MEDS: PANTOPRAZOLE 40 MG TABLET PO SCH ×2 (10:00→21:12)
[2017-07-03] MEDS: FOLIC ACID 1 MG TABLET PO SCH (10:04)
--- NOTE | 2017-07-03 11:19 | Gastrointestinal Progress Note ---
Assessment and Plan (1) Gastrointestinal hemorrhage with melena Status: Acute Assessment and plan: This patient states that she has had previous workup done at [facility] with upper endoscopy for ulcers in the past and that these did require treatment. Is unclear if alcohol played a major part in these previous evaluations and the patient does not seem to admit to any esophageal varices requiring banding's. Her platelet level is normal and this tends to rule against cirrhosis as does her normal MCV level. There is an element of iron deficiency present this may be partially treated. The patient states that she is typically on Nexium and this suppresses her heartburn, but it is unclear whether this is a medication she takes regularly as she has a history of noncompliance. Patient understands there are risks with endoscopy and these include: Bleeding, infection, perforation, cardiac and pulmonary compromise. Patient is to undergo a repeat upper endoscopy tomorrow at sometime between 0730 and 0930. Differential diagnosis includes esophageal or gastric cancer, Veronica-Palomino tear, variceal bleeding, erosive gastritis or duodenitis or esophagitis, AVMs, Dieulafoy's lesion and peptic ulcer disease. 07/02/17--The patient underwent upper endoscopy this morning and this did not show a gross bleeding or an obvious source of the patient's blood loss-- findings are as follows: No gross evidence of bleeding in the esophagus or stomach, certainly not enough to cause this level of anemia with hematocrit 20% . This may be a Dieulafoy's lesion or nutritional anemia with bone marrow suppression by alcohol. Suggest standard reticulocyte count, we might want to obtain bleeding scan if her hematocrit does not respond adequately to the units transfused thus far. I am concerned that if we order the bleeding scan now that the previously obtained biopsies would make this falsely positive in the upper GI tract. We may wish to consider capsule endoscopy if the colonoscopy from [facility] was adequate. 07/03/17--Old records from [facility] were obtained on 07/03/17--these included a colonoscopy done on 12/23/09 for rectal bleeding and abnormal CT scan and history of diverticulitis this demonstrated diverticulosis in the sigmoid and moderate-sized internal hemorrhoids as well as erythema in the rectosigmoid, biopsies were obtained but there was no pathology report included. 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 Included was also records from the emergency room for subsequent exam done on 12/21/16 for weakness and lightheadedness. She was admitted at that time, and underwent small bowel enteroscopy on 12/22/[address] Carter with colonoscopy being done subsequently on 12/23/[address] Perez. Upper endoscopy demonstrated a nonobstructing Schatzki's ring, what appeared to be portal hypertensive gastropathy in the proximal body and 2 small AVMs noted in the proximal body as well 2 AVMs in the duodenum and 3 AVMs noted in the proximal jejunum all treated with argon plasma coagulation. Biopsies the stomach showed unremarkable mucosa that was HP negative. Colonoscopy underwent biopsy of these of a sigmoid polyp and routine biopsies in the sigmoid both of which were hyperplastic polyp only/unremarkable. Capsule endoscopy was suggested but not performed. Current Visit: Yes (2) Acute posthemorrhagic anemia Status: Acute Assessment and plan: Patient certainly has melena on physical examination she is due to get 2 units packed red blood cells tonight. Upper endoscopy to take place tomorrow morning as mentioned above. 07/02/17--observe for further blood loss, await hematocrits from today status post 2 unit transfusion. 07/03/17--The patient's hematocrit is stable at this point--from my standpoint she can certainly go to [place] to help deal with her alcohol addiction tomorrow. I am going to order pre-albumin level to see what her nutritional status is at this time. She appears to be eating well at the current moment. I wonder if there is some nutritional component to her anemia and if there is some bone marrow suppression induced by the alcohol intake. She certainly appears to have a history of AVMs. She might need a capsule endoscopy down the road if she continues to be anemic. She will likely need ongoing iron intake to keep up with her GI tract losses. Current Visit: Yes (3) Alcoholism Status: Acute Assessment and plan: This patient has elevations in her liver function tests that appear perhaps more consistent with a viral hepatitis given the ALT predominance. I will go ahead and check a hepatitis A, B, and C panel to this end. We will try and obtain records from [facility] considering patient's endoscopy and GI workup. Alcohol withdrawal may take place the next 48-72 hours now that she is no longer drinking--we will need to watch for this. The patient has rather poor insight concerning her drinking and we will need to reinforce the need to be off of all alcohol intake. 07/02/17--Continue to observe this patient to see if she goes into the delirium tremens considering her alcohol intake at home. Check hepatitis A, B, and C panel. Current Visit: Yes (4) Abnormal weight loss Status: Acute Assessment and plan: If the patient has had previous colonoscopy done to rule out colon cancer and previous upper endoscopy we might want to obtain biopsies for celiac sprue given her abnormal weight loss. This may be related purely to depression or perhaps suppression of the appetite due to the alcohol intake or other factors unrelated such as thyroid dysfunction. Will continue to monitor weight loss over time. Currently the patient's has dropped from her baseline of 170 down to 137 she states over the last 3 months. We will have to watch her appetite and see if these losses continue once the patient has more routine access to solid food. 07/02/17--We Will see this patient low-sodium diet today and check her appetite-- she is typically on Nexium at home. Check for celiac sprue during biopsies taken today from the endoscopy. 07/03/17--Biopsies from the small bowel have not returned yet, biopsies are pending for celiac sprue. Patient was advised to discontinue all alcohol intake , she does not appear to be going into the delirium tremens, agree with transfer to [facility]. Check pre-albumin level today. Patient is hepatitis A, B, and C negative. She can follow-up in my office in 6 weeks post discharge. Again if she requires transfusion down the road we will consider doing capsule endoscopy at that point to rule out Crohn's disease and AVMs further in the GI tract. If AVMs are noted prominently throughout her GI tract she might be a candidate for double balloon endoscopy done at select number of centers across [place] but not here. Current Visit: Yes Exam (Progress Note) - Constitutional Vitals: Period Temp Pulse Resp BP Sys/Cortes Pulse Ox Last 24 Hr 96.9 F-97.7 F 75-87 18-20 101-168/65-89 93-139 Results - Labs CBC & BMP: 07/03/17 09:05 07/03/17 05:48
[2017-07-03] MEDS ORDERED: POTASSIUM CHLORIDE 20 MEQ TABLET PO ONE (13:42)
[2017-07-03] MEDS ORDERED: SODIUM CHLORIDE 0.9% 250 ML IV PRN (13:42)
--- NOTE | 2017-07-03 13:48 | Hospitalist Progress Note ---
Assessment and Plan (1) Alcohol abuse Status: Acute Assessment and plan: At the time of ED presentation, the patient was grossly intoxicated with an alcohol level reported at 285. The patient reported that she drinks daily; however denies any issues when she does not drink. We will start the CIWA withdrawal protocol. We will provide vitamin supplementation and monitor for impending signs or symptoms of delirium tremens. 07/03-no signs and symptoms of impending delirium tremens noted thus far. We will continue CIWA withdrawal protocol as previously ordered. Current Visit: Yes (2) Anemia Status: Acute Assessment and plan: The patient was grossly anemic at the time of ED presentation; with a hemoglobin hematocrit noted at 6.2 and 21.2. The patient reports that she is chronically anemic and was ordered to take iron supplements. We will type and screen and transfuse 2 units PRBCs. In addition, the patient reported that she has a previous medical history of diverticulitis and gastroesophageal reflux disease; which we will consult gastroenterology to evaluate and assist. 07/02-EGD this a.m. per gastroenterology. We will continue hydration and PPIs as previously ordered. We will await EGD results. 07/03-hemoglobin and hematocrit noted at 7.9 28.4. We will transfuse 1 unit PRBCs. We will discontinue supplemental IV fluids. We will recheck H&H in a.m. Current Visit: Yes Qualifiers: Anemia type: unspecified type Qualified Code(s): D64.9 - Anemia, unspecified (3) Syncope Status: Acute Assessment and plan: The patient reported multiple episodes of "blacking out" in the past. Due to the severity of the patient's alcoholism, this may be largely attributed to alcohol intoxication. However, the patient has a medical history significant for coronary artery disease and hyperlipidemia. We will perform a syncope workup; carotid Doppler studies and echocardiogram. We will provide supportive care. 07/02-carotid Dopplers significant for 16-49% stenosis with moderate plaque present right greater than left. Cardiology consultation has been requested. We will await further recommendations. Current Visit: Yes Qualifiers: Syncope type: unspecified Qualified Code(s): R55 - Syncope and collapse (4) Medical non-compliance Status: Acute Assessment and plan: The patient's family member was present at bedside. The family member voiced multiple concerns regarding the patient's current status. They reported that the patient had been living alone in [place] for several years and seemingly lost interest in her care. They became concerned about the patient's overall well-being and brought the patient back to [place] 1 month ago. They report that the patient has suffered from depression for many years and has been largely noncompliant for the last couple of years. At the time of ED presentation, the family presented with the patient's home medications all of which were nearly full. We will consult social work program coordinator to evaluate the patient 's current living situation. Current Visit: Yes (5) Hypokalemia Status: Acute Assessment and plan: Potassium noted at 3.4 today. We will correct deficit and recheck labs in a.m. Current Visit: Yes Hospitalist: Subjective Interval history: Patient seen and examined; chart reviewed. No significant overnight events reported per staff. EGD yesterday per gastroenterology was essentially unremarkable. Hemoglobin and hematocrit noted at 7.9/ 25.4 this morning; transfuse 1 unit PRBCs. Potassium noted at 3.4 today; we will correct the deficit. Exam - Constitutional Vitals: Period Temp Pulse Resp BP Sys/Cortes Pulse Ox Last 24 Hr 96.9 F-97.7 F 75-87 18-20 101-168/65-89 93-139 General appearance: normal weight, no acute distress - Head Head exam: Present: normal inspection, normocephalic, atraumatic - Eye Eye exam: Present: EOMI. Absent: conjunctival injection Pupils: Present: KASANDRA, normal accommodation - ENT ENT exam: Present: normal exam, normal external ear exam, normal oropharynx - Neck Neck exam: Present: normal inspection. Absent: lymphadenopathy, meningismus, thyromegaly - Respiratory Respiratory exam: Present: clear to auscultation bilaterally. Absent: rales, rhonchi, stridor, wheezes - Cardiovascular Cardiovascular exam: Present: regular rate and rhythm. Absent: carotid bruit, diastolic murmur, gallop, JVD, rubs, systolic murmur - GI/Abdominal GI/Abdominal exam: Present: normal bowel sounds, soft - Extremities Exam Extremities exam: Present: normal inspection, normal capillary refill, full ROM. Absent: edema - Back Exam Back exam: Present: normal inspection - Neurological Exam Neurological exam: Present: alert, oriented X3 - Psychiatric Psychiatric exam: Present: normal affect, normal mood - Skin Skin exam: Present: normal color, warm, dry Results - Labs CBC & BMP: 07/03/17 09:05 07/03/17 05:48 Lab Results: I have reviewed the past 24 hour labs
[2017-07-03] MEDS: PREGABALIN 50 MG CAPSULE PO SCH ×2 (16:44→21:12)
[2017-07-03] MEDS: traMADol 50 MG TABLET PO PRN (21:12)
[2017-07-04 03:38] LABS: Basophils # 0.1 10*3/uL (0.0-0.2); Basophils % 0.8 % (0.0-0.8); Eosinophils # 0.1 10*3/uL (0.0-0.87); Eosinophils % 1.6 % (0.00-10.9); Hematocrit 29.2 VOL% (35.7-47.0); Immature Granulocytes % 0.3 %; Immature Granulocytes Absolute 0.02 #; Lymphocytes # 0.7 10*3/uL (1.4-4.0); Mean Corpuscular HGB Conc 30.8 GM/DL (32-36); Mean Corpuscular Hemoglobin 26 PG (27-34); Mean Corpuscular Volume 85.6 FL (87-102); Mean Platelet Volume 11.5 FL (9.6-12.0); Monocytes # 0.8 10*3/uL (0.11-0.8); Monocytes % 10.1 % (1.7-12.7); Neutrophils # 5.7 10*3/uL (1.4-7.4); Neutrophils % 77.2 % (38.7-73.9); Platelet Count 176 T/CUMM (130-400); Red Blood Count 3.41 MC/CUMM (3.8-5.5); White Blood Count 7.4 T/CUMM (4-12)
[2017-07-04 04:27] LABS: Albumin 2.3 G/DL (3.4-5.0); Bilirubin,Total 0.5 MG/DL (0.2-1.0); Calcium 7.8 MG/DL (8.5-10.1); Magnesium 1.7 MG/DL (1.8-2.4); Osmolality,Calculated 272.7 MOS/KG (273-304); Phosphorous 1.8 MG/DL (2.5-4.9); Potassium 3.9 MMOL/L (3.5-5.1); Total Protein 5.6 G/DL (6.4-8.3)
[2017-07-04 04:54] LABS: Albumin 2.3 G/DL (3.4-5.0); Bilirubin,Direct 0.34 MG/DL (0.0-0.20); Bilirubin,Indirect 0.6 MG/DL (0.0-1.0); Bilirubin,Total 0.9 MG/DL (0.2-1.0); Prealbumin 16.1 MG/DL (20-40); Total Protein 5.4 G/DL (6.4-8.3)
[2017-07-04] MEDS: LEVOTHYROXINE 200 MCG TABLET PO SCH (07:00)
--- NOTE | 2017-07-04 07:14 | Gastrointestinal Progress Note ---
Assessment and Plan (1) Gastrointestinal hemorrhage with melena Status: Acute Assessment and plan: This patient states that she has had previous workup done at [facility] with upper endoscopy for ulcers in the past and that these did require treatment. Is unclear if alcohol played a major part in these previous evaluations and the patient does not seem to admit to any esophageal varices requiring banding's. Her platelet level is normal and this tends to rule against cirrhosis as does her normal MCV level. There is an element of iron deficiency present this may be partially treated. The patient states that she is typically on Nexium and this suppresses her heartburn, but it is unclear whether this is a medication she takes regularly as she has a history of noncompliance. Patient understands there are risks with endoscopy and these include: Bleeding, infection, perforation, cardiac and pulmonary compromise. Patient is to undergo a repeat upper endoscopy tomorrow at sometime between 0730 and 0930. Differential diagnosis includes esophageal or gastric cancer, Veronica-Palomino tear, variceal bleeding, erosive gastritis or duodenitis or esophagitis, AVMs, Dieulafoy's lesion and peptic ulcer disease. 07/02/17--The patient underwent upper endoscopy this morning and this did not show a gross bleeding or an obvious source of the patient's blood loss-- findings are as follows: No gross evidence of bleeding in the esophagus or stomach, certainly not enough to cause this level of anemia with hematocrit 20% . This may be a Dieulafoy's lesion or nutritional anemia with bone marrow suppression by alcohol. Suggest standard reticulocyte count, we might want to obtain bleeding scan if her hematocrit does not respond adequately to the units transfused thus far. I am concerned that if we order the bleeding scan now that the previously obtained biopsies would make this falsely positive in the upper GI tract. We may wish to consider capsule endoscopy if the colonoscopy from [facility] was adequate. 07/03/17--Old records from [facility] were obtained on 07/03/17--these included a colonoscopy done on 12/23/09 for rectal bleeding and abnormal CT scan and history of diverticulitis this demonstrated diverticulosis in the sigmoid and moderate-sized internal hemorrhoids as well as erythema in the rectosigmoid, biopsies were obtained but there was no pathology report included. 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 Included was also records from the emergency room for subsequent exam done on 12/21/16 for weakness and lightheadedness. She was admitted at that time, and underwent small bowel enteroscopy on 12/22/[address] Carter with colonoscopy being done subsequently on 12/23/[address] Perez. Upper endoscopy demonstrated a nonobstructing Schatzki's ring, what appeared to be portal hypertensive gastropathy in the proximal body and 2 small AVMs noted in the proximal body as well 2 AVMs in the duodenum and 3 AVMs noted in the proximal jejunum all treated with argon plasma coagulation. Biopsies the stomach showed unremarkable mucosa that was HP negative. Colonoscopy underwent biopsy of these of a sigmoid polyp and routine biopsies in the sigmoid both of which were hyperplastic polyp only/unremarkable. Capsule endoscopy was suggested but not performed. 07/04/17--Liver function tests are improved slightly from yesterday, the hematocrit is stable/improved from yesterday currently 29.2%. Findings on previous workup noted above note that we also found a AVM in the stomach is well that has been treated with BiCAP cautery. The plan for this patient in the future is to recheck her hematocrit in 4-6 weeks and if she has dropped appreciably from what she is now (off alcohol) willing to consider doing a capsule endoscopy to demonstrate how many more of these AVMs are in her small bowel and possible referral to double-balloon enteroscopy in order to cauterize the remaining AVM in her small bowel. Note that she has undergone multiple EGDs and colonoscopies as noted above during her time at [facility]. She does not need these repeated. Thank you for this interesting consult, will see this patient back in the office in 4-6 weeks with CBC at that time. Agree with her being transferred to [place] for treatment of her alcohol addiction and better insight as to her medical noncompliance. Will sign off at this time. Current Visit: Yes (2) Acute posthemorrhagic anemia Status: Acute Assessment and plan: Patient certainly has melena on physical examination she is due to get 2 units packed red blood cells tonight. Upper endoscopy to take place tomorrow morning as mentioned above. 07/02/17--observe for further blood loss, await hematocrits from today status post 2 unit transfusion. 07/03/17--The patient's hematocrit is stable at this point--from my standpoint [facility] deal with her [facility] addiction tomorrow. I am going to order pre-albumin level to see what her nutritional status is at this time. She appears to be eating well at the current moment. I wonder if there is some nutritional component to her anemia and if there is some bone marrow suppression induced by the alcohol intake. She certainly appears to have a history of AVMs. She might need a capsule endoscopy down the road if she continues to be anemic. She will likely need ongoing iron intake to keep up with her GI tract losses. 07/04/17--Stable/improving. Current Visit: Yes (3) Alcoholism Status: Acute Assessment and plan: This patient has elevations in her liver function tests that appear perhaps more consistent with a viral hepatitis given the ALT predominance. I will go ahead and check a hepatitis A, B, and C panel to this end. We will try and obtain records from [facility] considering patient's endoscopy and GI workup. Alcohol withdrawal may take place the next 48-72 hours now that she is no longer drinking--we will need to watch for this. The patient has rather poor insight concerning her drinking and we will need to reinforce the need to be off of all alcohol intake. 07/02/17--Continue to observe this patient to see if she goes into the delirium tremens considering her alcohol intake at home. Check hepatitis A, B, and C panel. 07/04/17--hepatitis A, B, and C are all negative. It appears the patient's liver function tests are increased due to her alcoholism. Current Visit: Yes (4) Abnormal weight loss Status: Acute Assessment and plan: If the patient has had previous colonoscopy done to rule out colon cancer and previous upper endoscopy we might want to obtain biopsies for celiac sprue given her abnormal weight loss. This may be related purely to depression or perhaps suppression of the appetite due to the alcohol intake or other factors unrelated such as thyroid dysfunction. Will continue to monitor weight loss over time. Currently the patient's has dropped from her baseline of 170 down to 137 she states over the last 3 months. We will have to watch her appetite and see if these losses continue once the patient has more routine access to solid food. 07/02/17--We Will see this patient low-sodium diet today and check her appetite-- she is typically on Nexium at home. Check for celiac sprue during biopsies taken today from the endoscopy. 07/03/17--Biopsies from the small bowel have not returned yet, biopsies are pending for celiac sprue. Patient was advised to discontinue all alcohol intake , she does not appear to be going into the delirium tremens, agree with transfer to [place] potentially. Check pre-albumin level today. Patient is hepatitis A, B, and C negative. She can follow-up in my office in 6 weeks post discharge. Again if she requires transfusion down the road we will consider doing capsule endoscopy at that point to rule out Crohn's disease and AVMs further in the GI tract. If AVMs are noted prominently throughout her GI tract she might be a candidate for double balloon endoscopy done at select number of centers across [place] but not here. 07/04/17--As noted above. There is been no evidence of Crohn's disease in this patient based on the previous colonoscopy as described above. This patient will need to be followed over time considering her weight and p.o. intake. I suspect her weight will improve to what it was before if she can stop drinking. We will write a prescription for some Protonix as well as some oral iron that she can take chronically. Prescription left in the front of the chart. Thank you for this interesting consult will see her back in the office in 4-6 weeks. Current Visit: Yes Gastroenterology - PN: Subj Interval history: This patient has swelling of her left eyelid this morning. She does not recall having any trauma the vision through the eye appears to be doing well. She understands that she is going to have to go to [place] but I am not sure that she understands this is something to do with her drinking history. At this point her hematocrit is stable currently 29.2%. She has a history of AVMs and recently we cauterized another in her stomach. Exam (Progress Note) - Constitutional Vitals: Period Temp Pulse Resp BP Sys/Cortes Pulse Ox Last 24 Hr 96.9 F-98.4 F 68-87 16-20 123-168/66-92 93-99 General appearance: no acute distress - Head Head exam: Present: other (Right eye with swollen lid this morning and some mild periorbital edema of unclear etiology.) - Eye Eye exam: Present: EOMI Pupils: Present: KASANDRA - Respiratory Respiratory exam: Present: clear to auscultation bilaterally - Cardiovascular Cardiovascular exam: Present: regular rate and rhythm - GI/Abdominal GI/Abdominal exam: Present: normal bowel sounds, soft. Absent: ascites, distended, rebound - Extremities Exam Extremities exam: Absent: edema - Neurological Exam Neurological exam: Present: alert, oriented X3 - Psychiatric Psychiatric exam: Present: normal affect, normal mood - Skin Skin exam: Present: warm Results - Labs CBC & BMP: 07/04/17 02:19 07/04/17 02:19
--- NOTE | 2017-07-04 09:03 | Hospitalist Progress Note ---
Assessment and Plan (1) Alcohol abuse Status: Acute Assessment and plan: At the time of ED presentation, the patient was grossly intoxicated with an alcohol level reported at 285. The patient reported that she drinks daily; however denies any issues when she does not drink. We will start the CIWA withdrawal protocol. We will provide vitamin supplementation and monitor for impending signs or symptoms of delirium tremens. 07/03-no signs and symptoms of impending delirium tremens noted thus far. We will continue CIWA withdrawal protocol as previously ordered. 07/04-no signs or symptoms of impending delirium tremens noted at this point. We will continue CIWA withdrawal protocol as previously ordered. The patient has been evaluated by [facility] for acute rehab placement; we are currently awaiting approval from [facility] for transfer. Current Visit: Yes (2) Anemia Status: Acute Assessment and plan: The patient was grossly anemic at the time of ED presentation; with a hemoglobin hematocrit noted at 6.2 and 21.2. The patient reports that she is chronically anemic and was ordered to take iron supplements. We will type and screen and transfuse 2 units PRBCs. In addition, the patient reported that she has a previous medical history of diverticulitis and gastroesophageal reflux disease; which we will consult gastroenterology to evaluate and assist. 07/02-EGD this a.m. per gastroenterology. We will continue hydration and PPIs as previously ordered. We will await EGD results. 07/03-hemoglobin and hematocrit noted at 7.9 28.4. We will transfuse 1 unit PRBCs. We will discontinue supplemental IV fluids. We will recheck H&H in a.m. 07/04-hemoglobin hematocrit noted at 9.0/29.2. The patient is tolerating oral feedings well. We agree with GIs recommendation for recheck of hemoglobin and hematocrit in 4-6 weeks. Current Visit: Yes Qualifiers: Anemia type: unspecified type Qualified Code(s): D64.9 - Anemia, unspecified (3) Syncope Status: Acute Assessment and plan: The patient reported multiple episodes of "blacking out" in the past. Due to the severity of the patient's alcoholism, this may be largely attributed to alcohol intoxication. However, the patient has a medical history significant for coronary artery disease and hyperlipidemia. We will perform a syncope workup; carotid Doppler studies and echocardiogram. We will provide supportive care. 07/02-carotid Dopplers significant for 16-49% stenosis with moderate plaque present right greater than left. Cardiology consultation has been requested. We will await further recommendations. Current Visit: Yes Qualifiers: Syncope type: unspecified Qualified Code(s): R55 - Syncope and collapse (4) Medical non-compliance Status: Acute Assessment and plan: The patient's family member was present at bedside. The family member voiced multiple concerns regarding the patient's current status. They reported that the patient had been living alone in [place] for several years and seemingly lost interest in her care. They became concerned about the patient's overall well-being and brought the patient back to [place] 1 month ago. They report that the patient has suffered from depression for many years and has been largely noncompliant for the last couple of years. At the time of ED presentation, the family presented with the patient's home medications all of which were nearly full. We will consult social service agency director to evaluate the patient 's current living situation. Current Visit: Yes (5) Hypokalemia Status: Acute Assessment and plan: Potassium noted at 3.4 today. We will correct deficit and recheck labs in a.m. Current Visit: Yes (6) Right eye injury Status: Acute Assessment and plan: At the time of ED presentation, the patient had a small laceration noted to the outer canthus of the right eye accompanied with edema. Today, the patient's right eye is largely edematous with dark discoloration. CT face at the time of admission was essentially unremarkable. This is likely attributed to the right facial soft swelling secondary to the injury. We will order ice packs to the right eye 3 times daily. Current Visit: Yes Hospitalist: Subjective Interval history: Patient seen and examined; chart reviewed. No significant overnight events reported per staff. Hemoglobin and hematocrit improved to 9.0/29.2 after blood transfusion on yesterday. The patient has been evaluated by [facility]; awaiting approval for inpatient admission. Exam - Constitutional Vitals: Period Temp Pulse Resp BP Sys/Cortes Pulse Ox Last 24 Hr 97.1 F-98.4 F 68-87 16-20 123-146/72-92 96-99 General appearance: normal weight, no acute distress - Head Head exam: Present: normal inspection, normocephalic, atraumatic - Eye Eye exam: Present: periorbital swelling (Periorbital swelling noted to right eye ). Absent: conjunctival injection, nystagmus Pupils: Present: KASANDRA, normal accommodation - ENT ENT exam: Present: normal exam, normal external ear exam, normal oropharynx - Neck Neck exam: Present: normal inspection. Absent: lymphadenopathy, meningismus, tenderness, thyromegaly - Respiratory Respiratory exam: Present: clear to auscultation bilaterally. Absent: rales, rhonchi, stridor, wheezes - Cardiovascular Cardiovascular exam: Present: regular rate and rhythm - GI/Abdominal GI/Abdominal exam: Present: normal bowel sounds, soft - Extremities Exam Extremities exam: Present: normal inspection, normal capillary refill, full ROM , edema - Back Exam Back exam: Present: normal inspection - Neurological Exam Neurological exam: Present: alert, oriented X3, CN II-XII intact - Psychiatric Psychiatric exam: Present: normal affect, normal mood - Skin Skin exam: Present: normal color, warm, dry Results - Labs CBC & BMP: 07/04/17 02:19 07/04/17 02:19 Lab Results: I have reviewed the past 24 hour labs
[2017-07-04] MEDS: FOLIC ACID 1 MG TABLET PO SCH ×2 (09:40→09:45)
[2017-07-04] MEDS: LOSARTAN 25 MG TABLET PO SCH (09:40)
[2017-07-04] MEDS: CITALOPRAM 20 MG TABLET PO SCH (09:40)
[2017-07-04] MEDS: PANTOPRAZOLE 40 MG TABLET PO SCH ×2 (09:40→20:25)
[2017-07-04] MEDS: ROSUVASTATIN 20 MG TABLET PO SCH (09:41)
[2017-07-04] MEDS: chlordiazePOXIDE 25 MG CAPSULE PO SCH ×4 (09:41→20:24)
[2017-07-04] MEDS: MAGNESIUM OXIDE 400 MG TABLET PO SCH ×2 (09:42→20:24)
[2017-07-04] MEDS: PREGABALIN 50 MG CAPSULE PO SCH ×3 (09:42→20:24)
[2017-07-04] MEDS: MULTIVITAMIN (BEROCCA) TABLET PO SCH (09:42)
[2017-07-04] MEDS: POTASSIUM PHOS/SOD PHOS POWDER 250 MG PACK PO SCH ×2 (09:43→20:24)
[2017-07-04] MEDS: ALLOPURINOL 100 MG TABLET PO SCH (10:51)
[2017-07-04] MEDS: THIAMINE 100 MG TABLET PO SCH (10:51)
[2017-07-05 05:46] LABS: Basophils # 0.1 10*3/uL (0.0-0.2); Eosinophils # 0.1 10*3/uL (0.0-0.87); Eosinophils % 1.6 % (0.00-10.9); Hematocrit 29.5 VOL% (35.7-47.0); Hemoglobin 9.2 GM/DL (12.0-16.0); Immature Granulocytes % 0.7 %; Immature Granulocytes Absolute 0.06 #; Lymphocytes # 0.9 10*3/uL (1.4-4.0); Lymphocytes % 10.4 % (21.3-54.2); Mean Corpuscular HGB Conc 31.2 GM/DL (32-36); Mean Corpuscular Hemoglobin 27 PG (27-34); Mean Corpuscular Volume 85.5 FL (87-102); Mean Platelet Volume 11.6 FL (9.6-12.0); Monocytes # 0.8 10*3/uL (0.11-0.8); Monocytes % 9.6 % (1.7-12.7); Neutrophils # 6.3 10*3/uL (1.4-7.4); Neutrophils % 76.7 % (38.7-73.9); Platelet Count 171 T/CUMM (130-400); Red Blood Count 3.45 MC/CUMM (3.8-5.5); Red Cell Distribution Width 18.9 % (9.3-17.3); White Blood Count 8.2 T/CUMM (4-12)
[2017-07-05] MEDS: LEVOTHYROXINE 200 MCG TABLET PO SCH (06:21)
[2017-07-05 06:48] LABS: Albumin 2.2 G/DL (3.4-5.0); Bilirubin,Total 0.8 MG/DL (0.2-1.0); Magnesium 1.6 MG/DL (1.8-2.4); Osmolality,Calculated 273.7 MOS/KG (273-304); Phosphorous 2.7 MG/DL (2.5-4.9); Potassium 3.7 MMOL/L (3.5-5.1); Total Protein 5.3 G/DL (6.4-8.3)
[2017-07-05] MEDS: CITALOPRAM 20 MG TABLET PO SCH (08:56)
[2017-07-05] MEDS: MAGNESIUM OXIDE 400 MG TABLET PO SCH ×2 (08:56→20:48)
[2017-07-05] MEDS: chlordiazePOXIDE 25 MG CAPSULE PO SCH ×4 (08:56→20:48)
[2017-07-05] MEDS: PANTOPRAZOLE 40 MG TABLET PO SCH ×2 (08:56→20:47)
[2017-07-05] MEDS: MULTIVITAMIN (BEROCCA) TABLET PO SCH (08:57)
[2017-07-05] MEDS: ROSUVASTATIN 20 MG TABLET PO SCH (08:57)
[2017-07-05] MEDS: THIAMINE 100 MG TABLET PO SCH (08:57)
[2017-07-05] MEDS: ALLOPURINOL 100 MG TABLET PO SCH (08:57)
[2017-07-05] MEDS: LOSARTAN 25 MG TABLET PO SCH (08:57)
[2017-07-05] MEDS: FOLIC ACID 1 MG TABLET PO SCH ×2 (08:57→08:58)
[2017-07-05] MEDS: PREGABALIN 50 MG CAPSULE PO SCH ×3 (08:57→20:47)
[2017-07-05] MEDS: POTASSIUM PHOS/SOD PHOS POWDER 250 MG PACK PO SCH ×2 (08:58→20:48)
--- NOTE | 2017-07-05 10:03 | Discharge Summary ---
<Lexi Najera - Last Filed: 07/05/17 10:04> Hospital Course - Hospital Course Hospital Course: Ms Tena 66 y/o w/PMHx CAD, CVA, Hypertension, dyslipidemia, diverticulitis chronic alcohol use presented on 07/01/17 to the ED via EMS from [facility] for further evaluation of syncopal episode and having occasional "black outs" In ED: Face CT: No evidence of acute osseous facial injury, right facial soft tissue swelling. Head CT: No acute intracranial abnormality. LABS significant: H&H 6.2 & 21.2, [place] 16.5, TIBC 477, AST 98, ALT 159, Alkaline Phosphatase 211, Alcohol Serum 285. Occult Stool 3+ positive for Occult Blood. Hospital Services Consulted for admission and further evaluation. Will transfuse 2 units of PRBCs, consult GI, carotid doppler , Echo. Hepatitis panel negative. GI performed EGD 07/02/17. GI RECOMMENDS: Follow up for biopsy results in 1-2 weeks by phone [phone] Continue anti-gastroesophageal reflux measures ( avoid carbonated and acidic beverages, avoid eating within 2 hours of bedtime, avoid tight fitting clothing, and elevate the front bed posts 6 inches prior to sleeping. Observe hematocrit as she begins to eat again. Await biopsies taken for celiac sprue. Consider capsule endoscopy if patient continues to have blood loss. Protonix 40 mg once daily. Recheck H&H in 4-6 weeks, if dropped will need to proceed with capsule endoscopy. During the course of the hospitalization, the patient had acute gouty attack involving her right great toe. She was started on colchicine and received Depo- Medrol as well as prednisone. She has voiced wanting to stop drinking alcohol and wants to be placed in Rehab at [place] for treatment of alcohol addiction. She will need to follow-up with [facility] as an outpatient for continued alcohol abstinence and rehab. She has been accepted to swing bed at [facility]. She will be discharged there today. Her home medications were reviewed and reconciled. Colchicine was E scribed to the [facility]. She should continue the prednisone in a tapering dose fashion while at rehab. I have personally seen and examined this patient today. I agree with the below note as prepared by the advanced practice provider. I agree with the assessment and plan. Specialty Discharge - Follow Up or Referrals Follow up with: Noah Mcclendon MD [Physician] - 08/10/17 9:45 am Alan Duncan MD [Physician] - 08/18/17 10:00 am (Call for follow up appointment for 6 weeks.) Discharge Plan - Discharge Data Disposition: Swing Bed, Hos Based, [facility] - Discharge Medications New Magnesium Oxide 400 mg PO BID tablet Multivitamin (Berocca) [Berocca] 1 tablet PO DAILY tablet predniSONE TAB [PredniSONE] 40 mg PO DAILY tablet Colchicine [Colcrys] 0.6 mg PO DAILY #30 tablet Continue Folic Acid Tab 1 mg PO QAM Rosuvastatin Calcium [Crestor] 40 mg PO QAM Esomeprazole Magnesium [Esomeprazole] 40 mg PO BID PRN PRN Reason: acid reflux Levothyroxine Tab [Synthroid Tab] 200 mcg PO DAILY@0700 Citalopram [CeleXA] 20 mg PO QAM Ferrous Sulfate [Iron] 325 mg PO QAM Allopurinol 100 mg PO QAM Losartan [Cozaar] 25 mg PO QAM Pregabalin [Lyrica] 50 mg PO TID Tramadol HCl [Tramadol Tab] 50 tablet PO Q6HR PRN PRN Reason: Pain Tramadol HCl [Tramadol Tab] 50 mg PO Q6H PRN PRN Reason: Pain - Follow Up or Referral Follow Up: Noah Mcclendon MD [Physician] - 08/10/17 9:45 am Alan Duncan MD [Physician] - 08/18/17 10:00 am (Call for follow up appointment for 6 weeks.) - Forms/Instructions Instructions: Abuse of Alcohol (DC) Exam - Constitutional Vitals: Period Temp Pulse Resp BP Sys/Cortes Pulse Ox Last 24 Hr 96.6 F-97.9 F 72-83 16-20 127-181/74-95 94-98 Discharge Results Procedures and tests throughout hospitalization: Pending Orders 07/01/17 00:30 Occult Blood, Stool Routine DS: Provider Date of admission: 07/01/17 17:40 Primary care physician: . No PCP Attending physician on admission: Puma Coelho MD Consults: 07/01/17 20:02 Consult to Dietitian [CONS] Routine Reason for Dietitian: Dietary Consult 07/01/17 20:20 Consult to Anesthesiology [CONS] Routine Consulting Provider: Reason for Anesthesiology: Pre-op Clearance 07/02/17 12:54 Consult to Case Mgmt/Social Srvs [CONS] Routine Reason for Case Mgmt/Social Srvs: Other Consult Comment: alcohol and depression issues. 07/04/17 11:56 Consult to Case Mgmt/Social Srvs [CONS] Routine Reason for Case Mgmt/Social Srvs: Equipment Consult Comment: rollator- walker 07/05/17 08:55 Consult to Occupational Therapy [CONS] Routine Reason for Occupational Therapy: Evaluate and Treat Start Therapy: Today Consult Comment: For S/B placement Consult to Physical Therapy [CONS] Routine Reason for Physical Therapy: Evaluate and Treat Start Therapy: Today Consult Comment: For S/B placement 07/05/17 08:56 Consult to Case Mgmt/Social Srvs [CONS] Routine Reason for Case Mgmt/Social Srvs: Swingbed/SNF/Residential Consult Comment: Weakness,unable to go home 07/06/17 11:22 Consult to Physician [CONS] Routine Comment: ataxia, frequent falls, hx of etoh abuse Consulting Provider: Noah Mcclendon Consulting Provider Notified: Yes When should Consulting Provider be notified: Now Consult to Specialist Group: Neurology When should Consulting Provider be notified: Now Person Notified: Sabra Date Notified: 07/06/17 Time Notified: 12:14 Consult Notification Comment: Will notify Dr. Mcclendon. Discharging clinician: Lexi Najera NP <Aaron Wilkins - Last Filed: 07/08/17 10:26> Hospital Course - Time spent with patient Time with patient DS: Greater than 30 minutes (Total discharge time for this patient, including [id number] time, clinical documentation, medication reconciliation, and discharge planning was 47 minutes.) Diagnosis - Discharge Diagnosis (1) Ataxia Status: Acute (2) Alcohol abuse Status: Chronic (3) Anemia Status: Acute (4) Gastrointestinal hemorrhage with melena Status: Resolved (5) Acute posthemorrhagic anemia Status: Resolved (6) Alcoholism Status: Chronic (7) Gout attack Status: Acute Discharge Plan - Discharge Data Condition at Discharge: Stable Discharge Diet: advance to your usual diet Activity: as per physical therapy Hygiene: no restrictions Contact your physician if you experience:: fever over 101 DS: Provider Expected date of discharge: 07/08/17
--- NOTE | 2017-07-05 12:23 | Pathology Report from [facility] ---
[facility] ACCESSION # : [id number] PATIENT NAME : Di Polk ORDERING DR : Alan Duncan MD CLINICAL HX: #1 R/O Sprue #2 Non erosive gastritis POST-OP DX: Same SPECIMEN INFO: #1 Duodenal #2 MITCHELL GROSS DESCRIPTION: #1 The specimen is received in formalin labeled with the patients name DI HARRIS and #1 consists of a 0.6 x 0.3 cm aggregate of tyler tissue. Submitted in cassette #1.#2 The specimen is received in formalin labeled with the patients name DI HARRIS and #2 consists of a 0.5 x 0.3 cm aggregate of tyler tissue. Submitted in cassette #2. DIAGNOSIS FOR DI HARRIS: #1 DUODENAL BIOPSY: Mild superficial chronic inflammation, normal villous architecture. No evidence of granulomas, parasites, tumor, or celiac disease.#2 MITCHELL BIOPSY: Chronic superficial gastritis. H. pylori not seen on H&E or special stain with appropriate control. COLLECTED DATE: 07/02/2017 [facility] REPORT DATE: 07/05/2017 ELECTRONICALLY SIGNED BY: Liana Sharma M.D. 07/05/2017 - 10:21:23 [facility]
--- NOTE | 2017-07-05 13:51 | Hospitalist Progress Note ---
Assessment and Plan (1) Ataxia Status: Acute Assessment and plan: debility coupled with a hx of ETOH abuse. PT/OT consult Swing bed eval Needs walker at D/C Current Visit: Yes (2) Alcohol abuse Status: Chronic Assessment and plan: Not in DT's. Advised to follow up with [facility] or the like for rehab Current Visit: Yes (3) Anemia Status: Acute Assessment and plan: stable without evidence of blood loss. Current Visit: Yes Qualifiers: Anemia type: unspecified type Qualified Code(s): D64.9 - Anemia, unspecified (4) Gastrointestinal hemorrhage with melena Status: Acute Current Visit: Yes (5) Acute posthemorrhagic anemia Status: Resolved Current Visit: Yes (6) Alcoholism Status: Acute Current Visit: Yes Hospitalist: Subjective Interval history: My subjective. Patient continues to have lower extremity weakness and instability with gait. PT OT consult placed. Will send for swing bed evaluation. Exam - Constitutional Vitals: Period Temp Pulse Resp BP Sys/Cortes Pulse Ox Last 24 Hr 96.4 F-98.3 F 76-88 18-20 123-160/77-88 95-99 Exam: Constitutional System: No distress. No tremulousness. Head: Normocephalic, atraumatic. Ears, Nose and Throat System: No pain or tenderness. No epistaxis or discharge Eyes System: Pupils equal, round, and reactive. Extraocular muscles intact. Neck: Supple, without adenopathy, No jugular venous distention. Respiratory System: Chest clear to auscultation. Cardiovascular System: Heart with regular rate and rhythm. No murmur. GI System: Abdomen soft, nontender. Normo active bowel sounds present. Musculoskeletal System: limbs with no pedal edema. Full distal pulses. Normal capillary refill. Neurological System: No discernable sensory deficit. No aphasia Psychiatric System: Conversation is rational Results - Labs CBC & BMP: 07/05/17 04:52 07/05/17 04:52 Lab Results: I have reviewed the past 24 hour labs Specialty Discharge - Follow Up or Referrals Follow up with: Alan Duncan MD [Physician] - (Call for follow up appointment for 6 weeks.)
[2017-07-06] MEDS: LEVOTHYROXINE 200 MCG TABLET PO SCH (06:24)
[2017-07-06] MEDS: traMADol 50 MG TABLET PO PRN (06:26)
[2017-07-06] MEDS: MULTIVITAMIN (BEROCCA) TABLET PO SCH (09:23)
[2017-07-06] MEDS: THIAMINE 100 MG TABLET PO SCH (09:23)
[2017-07-06] MEDS: chlordiazePOXIDE 25 MG CAPSULE PO SCH ×2 (09:23)
[2017-07-06] MEDS: MAGNESIUM OXIDE 400 MG TABLET PO SCH ×2 (09:23→20:46)
[2017-07-06] MEDS: CITALOPRAM 20 MG TABLET PO SCH (09:23)
[2017-07-06] MEDS: FOLIC ACID 1 MG TABLET PO SCH ×2 (09:23→09:24)
[2017-07-06] MEDS: ALLOPURINOL 100 MG TABLET PO SCH (09:23)
[2017-07-06] MEDS: PREGABALIN 50 MG CAPSULE PO SCH (09:23)
[2017-07-06] MEDS: ROSUVASTATIN 20 MG TABLET PO SCH (09:23)
[2017-07-06] MEDS: LOSARTAN 25 MG TABLET PO SCH (09:23)
[2017-07-06] MEDS: PANTOPRAZOLE 40 MG TABLET PO SCH ×2 (09:23→20:46)
[2017-07-06] MEDS: POTASSIUM PHOS/SOD PHOS POWDER 250 MG PACK PO SCH ×2 (09:24→20:46)
[2017-07-06] MEDS ORDERED: methylPREDNISolone ACETATE 80 MG/1 ML VIAL IM ONE (11:25)
[2017-07-06] MEDS ORDERED: chlordiazePOXIDE 10 MG CAPSULE PO PRN (11:25)
[2017-07-06] MEDS ORDERED: COLCHICINE 0.6 MG TABLET PO ONE (11:25)
--- NOTE | 2017-07-06 11:28 | Hospitalist Progress Note ---
Assessment and Plan (1) Ataxia Status: Acute Assessment and plan: debility coupled with a hx of ETOH abuse. PT/OT consult Swing bed eval Needs walker at D/C 07/06/2017 MRI brain today. Ultrasound carotid arteries bilaterally. Consult neurology. I have reviewed her medications and reduced her dose of Lyrica as well as Librium. Blood pressure is stable. Current Visit: Yes (2) Alcohol abuse Status: Chronic Assessment and plan: Not in DT's. Advised to follow up with [facility] or the like for rehab Current Visit: Yes (3) Anemia Status: Acute Assessment and plan: stable without evidence of blood loss. MCV is low however the patient is allergic to iron and iron products. Current Visit: Yes Qualifiers: Anemia type: unspecified type Qualified Code(s): D64.9 - Anemia, unspecified (4) Gastrointestinal hemorrhage with melena Status: Acute Assessment and plan: Hemoglobin and hematocrit stable without evidence of acute bleeding at this time Current Visit: Yes (5) Acute posthemorrhagic anemia Status: Resolved Current Visit: Yes (6) Alcoholism Status: Acute Current Visit: Yes (7) Gout attack Status: Acute Assessment and plan: Hold allopurinol. Give Depo-Medrol IM. Start colchicine 1.2 mg now and 0.6 mg daily for acute gouty attack Current Visit: Yes Qualifiers: Gout site: foot Gout etiology: idiopathic Laterality: right Qualified Code(s): M10.071 - Idiopathic gout, right ankle and foot Hospitalist: Subjective Interval history: Patient seen and examined. No acute events overnight. Case discussed with nursing staff. Labs reviewed. Nursing reports patient fell earlier this morning in the bathroom. They report she slid off the commode. She suffered no bodily injuries. She is undergoing a formal evaluation for ataxia and difficulty with ambulation resulting in frequent falls. Neurology consult and MRI of the brain as well as carotid ultrasound have been ordered. Physical therapy and Occupational Therapy already consulted and seen the patient. She is being worked up for inpatient rehab placement for debility and weakness. Patient also complains of right foot and great toe pain consistent with her history of gout. Exam - Constitutional Vitals: Period Temp Pulse Resp BP Sys/Cortes Pulse Ox Last 24 Hr 97 F-98.3 F 76-99 14-20 130-161/75-94 97-100 Exam: Constitutional System: No distress. No tremulousness. Generalized weakness noted Head: Normocephalic, atraumatic. Ears, Nose and Throat System: No pain or tenderness. No epistaxis or discharge Eyes System: Pupils equal, round, and reactive. Extraocular muscles intact. Neck: Supple, without adenopathy, No jugular venous distention. Respiratory System: Chest clear to auscultation. Cardiovascular System: Heart with regular rate and rhythm. No murmur. GI System: Abdomen soft, nontender. Normo active bowel sounds present. Musculoskeletal System: limbs with no pedal edema. Full distal pulses. Normal capillary refill. Right great toe is red, hot, and painful to touch. Neurological System: No discernable sensory deficit. No aphasia Psychiatric System: Conversation is rational Results - Labs CBC & BMP: 07/05/17 04:52 07/05/17 04:52 Lab Results: I have reviewed the past 24 hour labs Specialty Discharge - Follow Up or Referrals Follow up with: Alan Duncan MD [Physician] - 08/18/17 10:00 am (Call for follow up appointment for 6 weeks.)
--- NOTE | 2017-07-06 14:31 | Neurology Consult Note ---
History of Present Illness History of present illness: This is a very pleasant 66-year-old -[place] lady that presented to the ED at [facility] for the evaluation of a fall. The patient has a medical history significant for coronary artery disease, hyperlipidemia, gastroesophageal reflux disease, depression, diverticulitis, hypothyroidism, gouty arthritis, nicotine addiction, anemia, and alcohol abuse. The patient is a resident at [facility]. Apparently , the patient was observed falling by the maintenance staff at the facility. He proceeded to notify the staff who then in turn called 911. The patient was subsequently transported to [facility] for further evaluation. The patient was assessed at the time of ED presentation. The patient reported that she has had a long-standing history of "blackouts". She reported that her "equilibrium has been off" and attributed this to her recurrent falls. In addition, the EMS staff reported the presence of multiple empty bottles of vodka surrounding the patient at the time of arrival. When asked, the patient reports that she drinks "beer and vodka 3 times a day". CT of the head is negative. Alcohol level was 285. Carotid ultrasound is unremarkable. Home Medications Medication Instructions Recorded Confirmed Type Allopurinol 100 mg PO QAM 07/01/17 07/01/17 History Citalopram [CeleXA] 20 mg PO QAM 07/01/17 07/01/17 History Esomeprazole Magnesium 40 mg PO BID PRN 07/01/17 07/01/17 History [Esomeprazole] Ferrous Sulfate [Iron] 325 mg PO QAM 07/01/17 07/01/17 History Folic Acid Tab 1 mg PO QAM 07/01/17 07/01/17 History Levothyroxine Tab [Synthroid Tab] 200 mcg PO DAILY@0700 07/01/17 07/01/17 History Losartan [Cozaar] 25 mg PO QAM 07/01/17 07/01/17 History Pregabalin [Lyrica] 50 mg PO TID 07/01/17 07/01/17 History Rosuvastatin Calcium [Crestor] 40 mg PO QAM 07/01/17 07/01/17 History Tramadol HCl [Tramadol Tab] 50 tablet PO Q6HR PRN 07/01/17 07/01/17 History Tramadol HCl [Tramadol Tab] 50 mg PO Q6H PRN 07/03/17 07/03/17 History Allergies Allergy/AdvReac Type Severity Reaction Status Date / Time acetaminophen [From Percocet] Allergy Unknown/Unable Verified 07/01/17 15:38 to obtain Iodinated Contrast Media - Allergy Unknown/Unable Verified 07/01/17 15:38 Oral and to obtain iron Allergy Unknown/Unable Verified 07/01/17 15:38 to obtain Oxycodone [From Percocet] Allergy Unknown/Unable Verified 07/01/17 15:38 to obtain Shellfish Allergy Unknown/Unable Verified 07/01/17 15:38 to obtain 12 point system: reviewed and no additional remarkable complaints except as stated Medical,Surgical,& Family Hx - Medical History Cardio: History of: Cerebrovascular Disease, CAD, Hypertension, Cardiovascular Problems Psychological: History of: Depression Neurology: No history of: Seizures HEENT: No history of: HEENT Problems Endocrine: History of: Dyslipidemia, Thyroid Disorder (Hypothyroid) Respiratory: No history of: Respiratory Problems Genitourinary: No history of: Problems Gastrointestinal: History of: Diverticulitis/ Diverticulosis, GERD Musculoskeletal: History of: Musculoskeletal Problems (Gouty arthritis) Hematology: History of: Anemia - Surgical History Cardiac Surgeries: Sugical HX of: Cardiac Surgery - Family History Family History: Reports;: Family Cancer, Family Heart Disease, Family Hypertension - Social History Smoking Status: Current every day smoker Frequency of Alcohol Use: Frequently Type of Drug Use: None Exam - Constitutional Vitals: Period Temp Pulse Resp BP Sys/Cortes Pulse Ox Last 24 Hr 96.8 F-98.3 F 76-99 14-20 130-161/75-94 97-100 Exam: GENERAL: Patient is in no acute distress. NECK: Neck is supple. There is no JVD. No carotid bruits present. No thyroid masses. CVS: First and second heart sounds are normal. There is no S3 present. Regular rate and rhythm. RESPIRATORY: Lungs are clear to auscultation without any rales or rhonchi. ABDOMEN: Soft and non-tender. Bowel sounds are present. There is no hepatosplenomegaly. EXT: There is no palpable edema. Peripheral pulses are present. Skin: No rashes Central Nervous system: General: Alert, awake and Oriented x 3 Speech: Fluent Comprehension: Intact and normal Facial expressions: Normal Cranial Nerves: CN1/Olfactory: Normal CN II/ Optic: Normal, Visual Elliott unreliable CN III, and : KASANDRA & EOMI CN V: Normal & intact CN VII: face is symmetric CNVIII: Normal CN XI/X/XI/XII: Intact and Normal Motor: Bulk and Tone is normal. Strength in the right 3-4/5 Strength in the left 3-4/5 Sensory: Decreased for all the modalities of PP, LT and temp sense Reflexes: 1+ and symmetrical Cerebellar function: Normal finger to nose and heel to lomax testing. Toes: Equivocal Gait: Not tested at this time Results - Labs CBC & BMP: 07/05/17 04:52 07/05/17 04:52 Assessment and Plan (1) Syncope Status: Acute Assessment and plan: This is likely due to alcoholism. Seizure can be a possibility due to alcohol or alcohol withdrawal. I have counseled her regarding cessation of alcoholism. No AEDs are indicated Okay to go home Follow-up in 4 to 6 weeks Current Visit: Yes Qualifiers: Syncope type: unspecified Qualified Code(s): R55 - Syncope and collapse Specialty Discharge - Follow Up or Referrals Follow up with: Alan Duncan MD [Physician] - 08/18/17 10:00 am (Call for follow up appointment for 6 weeks.) Noah Mcclendon MD [Physician] - 1 Month
--- NOTE | 2017-07-06 16:53 | Magnetic Resonance Report ---
MRI brain without and with contrast Indication: Ataxia, frequent falls Comparison: None available Technique: Axial sagittal and coronal imaging of the brain is performed without and with intravenous contrast. T1, T2, FLAIR and diffusion weighted sequences are performed. Contrast dose is 12 cc Dotarem. Findings: No evidence of restricted diffusion seen. No evidence of intracranial hemorrhage, mass, mass effect or midline shift is seen. There is moderate to severe diffuse cerebral atrophy. There are areas of white matter T2 signal hyperintensity in both cerebral hemispheres, periventricular and subcortical in location likely related to chronic microvascular changes. Remaining brain parenchyma has normal signal and differentiation. The ventricles and cisterns are appropriate in caliber. Posterior fossa, mid brain and pituitary gland appear within normal limits. No evidence of cranial or skull base abnormality seen. No areas of abnormal enhancement are present on the postcontrast images when compared to the precontrast study. Impression: No evidence of acute process demonstrated. PROCEDURE INTERPRETED AT [facility] DEPARTMENT OF RADIOLOGY Final Report Signed by: Dr. Pj Deutsch
[2017-07-06] MEDS: PREGABALIN 25 MG CAPSULE PO SCH (20:45)
[2017-07-07] MEDS: LEVOTHYROXINE 200 MCG TABLET PO SCH (06:23)
[2017-07-07] MEDS ORDERED: COLCHICINE 0.6 MG TABLET PO SCH (09:00)
[2017-07-07] MEDS: LOSARTAN 25 MG TABLET PO SCH (09:26)
[2017-07-07] MEDS: CITALOPRAM 20 MG TABLET PO SCH (09:26)
[2017-07-07] MEDS: ROSUVASTATIN 20 MG TABLET PO SCH (09:26)
[2017-07-07] MEDS: THIAMINE 100 MG TABLET PO SCH (09:27)
[2017-07-07] MEDS: FOLIC ACID 1 MG TABLET PO SCH (09:28)
[2017-07-07] MEDS: MAGNESIUM OXIDE 400 MG TABLET PO SCH ×2 (09:28→21:21)
[2017-07-07] MEDS: MULTIVITAMIN (BEROCCA) TABLET PO SCH (09:28)
[2017-07-07] MEDS: PANTOPRAZOLE 40 MG TABLET PO SCH ×2 (09:28→21:21)
[2017-07-07] MEDS: POTASSIUM PHOS/SOD PHOS POWDER 250 MG PACK PO SCH ×2 (09:29→21:21)
[2017-07-07] MEDS: PREGABALIN 25 MG CAPSULE PO SCH ×2 (10:12→21:20)
--- NOTE | 2017-07-07 17:13 | Hospitalist Progress Note ---
Assessment and Plan (1) Ataxia Status: Acute Assessment and plan: debility coupled with a hx of ETOH abuse. PT/OT consult Swing bed eval Needs walker at D/C 07/06/2017 MRI brain today. Ultrasound carotid arteries bilaterally. Consult neurology. I have reviewed her medications and reduced her dose of Lyrica as well as Librium. Blood pressure is stable. Current Visit: Yes (2) Alcohol abuse Status: Chronic Assessment and plan: Not in DT's. Advised to follow up with [facility] or the like for rehab Current Visit: Yes (3) Anemia Status: Acute Assessment and plan: stable without evidence of blood loss. MCV is low however the patient is allergic to iron and iron products. Current Visit: Yes Qualifiers: Anemia type: unspecified type Qualified Code(s): D64.9 - Anemia, unspecified (4) Gastrointestinal hemorrhage with melena Status: Acute Assessment and plan: Hemoglobin and hematocrit stable without evidence of acute bleeding at this time Current Visit: Yes (5) Acute posthemorrhagic anemia Status: Resolved Current Visit: Yes (6) Alcoholism Status: Acute Current Visit: Yes (7) Gout attack Status: Acute Assessment and plan: Hold allopurinol. Give Depo-Medrol IM. Start colchicine 1.2 mg now and 0.6 mg daily for acute gouty attack Current Visit: Yes Qualifiers: Gout site: foot Gout etiology: idiopathic Laterality: right Qualified Code(s): M10.071 - Idiopathic gout, right ankle and foot Hospitalist: Subjective Interval history: Patient seen and examined. No acute events overnight. Case discussed with nursing staff. Labs reviewed. She continues to have weakness in her lower extremities and is receiving physical therapy and occupational therapy. She is awaiting placement at [facility] and insurance approval. Exam - Constitutional Vitals: Period Temp Pulse Resp BP Sys/Cortes Pulse Ox Last 24 Hr 97.2 F-97.7 F 74-83 16-20 127-174/74-90 94-99 Exam: Constitutional System: No distress. No tremulousness. Generalized weakness noted Head: Normocephalic, atraumatic. Ears, Nose and Throat System: No pain or tenderness. No epistaxis or discharge Eyes System: Pupils equal, round, and reactive. Extraocular muscles intact. Neck: Supple, without adenopathy, No jugular venous distention. Respiratory System: Chest clear to auscultation. Cardiovascular System: Heart with regular rate and rhythm. No murmur. GI System: Abdomen soft, nontender. Normo active bowel sounds present. Musculoskeletal System: limbs with no pedal edema. Full distal pulses. Normal capillary refill. Right great toe is red, hot, and painful to touch. Neurological System: No discernable sensory deficit. No aphasia. Bilateral lower extremity weakness Psychiatric System: Conversation is rational Results - Labs CBC & BMP: 07/05/17 04:52 07/05/17 04:52 Lab Results: I have reviewed the past 24 hour labs Specialty Discharge - Follow Up or Referrals Follow up with: Noah Mcclendon MD [Physician] - 08/10/17 9:45 am Alan Duncan MD [Physician] - 08/18/17 10:00 am (Call for follow up appointment for 6 weeks.)
[2017-07-07] MEDS ORDERED: predniSONE 20 MG TABLET PO ONE (17:14)
[2017-07-07] MEDS: COLCHICINE 0.6 MG TABLET PO SCH (21:21)
[2017-07-08] MEDS: LEVOTHYROXINE 200 MCG TABLET PO SCH (06:06)
[2017-07-08 08:56] VITALS: BP 181/95
[2017-07-08] MEDS ORDERED: predniSONE 20 MG TABLET PO SCH (09:00)
[2017-07-08] MEDS: LOSARTAN 25 MG TABLET PO SCH (09:10)
[2017-07-08] MEDS: FOLIC ACID 1 MG TABLET PO SCH (09:10)
[2017-07-08] MEDS: COLCHICINE 0.6 MG TABLET PO SCH (09:11)
[2017-07-08] MEDS: ROSUVASTATIN 20 MG TABLET PO SCH (09:12)
[2017-07-08] MEDS: CITALOPRAM 20 MG TABLET PO SCH (09:12)
[2017-07-08] MEDS: PANTOPRAZOLE 40 MG TABLET PO SCH (09:12)
[2017-07-08] MEDS: MULTIVITAMIN (BEROCCA) TABLET PO SCH (09:13)
[2017-07-08] MEDS: MAGNESIUM OXIDE 400 MG TABLET PO SCH (09:13)
[2017-07-08] MEDS: THIAMINE 100 MG TABLET PO SCH (09:13)
[2017-07-08] MEDS: PREGABALIN 25 MG CAPSULE PO SCH (09:13)
[2017-07-08] MEDS: POTASSIUM PHOS/SOD PHOS POWDER 250 MG PACK PO SCH (09:14)
== END 2017-07-08 12:10 | disposition swing bed (61) | DRG 378 ==
LOC: N.ED 15:29 → N.EDINP 17:40 → SUATTDRO 17:40 → N.4E 18:32
PROVIDERS: ADMIT Family Medicine; ATTEND Family Medicine

== ENCOUNTER 2018-01-10 16:16 | Observation (INO) ==
[2018-01-10] MEDS ORDERED: ONDANSETRON 4 MG/2 ML VIAL IV PRN (16:23)
[2018-01-10] MEDS ORDERED: SODIUM CHLORIDE 0.9% 1,000 ML IV PRN (16:27)
[2018-01-10 18:33] LABS: Basophils # 0.1 10*3/uL (0.0-0.2); Basophils % 1.4 % (0.0-0.8); Eosinophils # 0.1 10*3/uL (0.0-0.87); Eosinophils % 1.2 % (0.00-10.9); Hematocrit 23.5 VOL% (35.7-47.0); Immature Granulocytes % 0.6 %; Immature Granulocytes Absolute 0.03 #; Lymphocytes # 0.8 10*3/uL (1.4-4.0); Lymphocytes % 15.9 % (21.3-54.2); Mean Corpuscular HGB Conc 28.1 GM/DL (32-36); Mean Corpuscular Hemoglobin 25 PG (27-34); Mean Corpuscular Volume 89.4 FL (87-102); Mean Platelet Volume 9.5 FL (9.6-12.0); Monocytes # 0.8 10*3/uL (0.11-0.8); Monocytes % 15.7 % (1.7-12.7); Neutrophils # 3.4 10*3/uL (1.4-7.4); Neutrophils % 65.2 % (38.7-73.9); Platelet Count 262 T/CUMM (130-400); Red Blood Count 2.63 MC/CUMM (3.8-5.5); Red Cell Distribution Width 19.3 % (9.3-17.3); White Blood Count 5.2 T/CUMM (4-12)
[2018-01-10] MEDS ORDERED: FUROSEMIDE 20 MG/2 ML VIAL IV PRN (18:33)
[2018-01-10] MEDS ORDERED: traMADol 50 MG TABLET PO ONE (18:42)
[2018-01-10 19:19] LABS: Lymphocytes 11 % (20-55); Platelet Estimate Normal; Segmented Neutrophils 80 % (50-85); Total Cells Counted 100
[2018-01-10 19:20] LABS: Hypochromasia Slight
[2018-01-10 19:23] LABS: Hemoglobin 6.6 GM/DL (12.0-16.0)
[2018-01-10] MEDS: DOCUSATE SODIUM 100 MG CAPSULE PO SCH (22:03)
[2018-01-10] MEDS ORDERED: diphenhydrAMINE CAP 50 MG CAPSULE PO PRN (22:51)
[2018-01-10] MEDS ORDERED: diphenhydrAMINE CAP 25 MG CAPSULE PO PRN (22:51)
[2018-01-11 01:31] LABS: Apearance,Urine Slightly Hazy (Clear); Bacteria,Urine Occasional /HPF (Few); Bilirubin,Urine Negative (Negative); Blood, Urine Negative (Negative); Glucose,Urine (UA) Negative (Negative); Ketones,Urine Negative (Negative); Nitrite,Urine Negative (Negative); Protein,Urine Negative; Squamous Epithelial Cell,Urine Occasional /HPF (0-10); Urine Color Yellow (Yellow); Urine Specific Gravity 1.018 (1.001-1.035); WBC,Urine 3 /HPF (0-6)
[2018-01-11 01:32] LABS: Barbiturates Screen,Urine Negative (Negative); Benzodiazepines Screen,Urine Negative (Negative); Cannabinoid Screen,Urine Negative (Negative); Opiate Screen,Urine Negative (Negative); Phencyclidine Screen,Urine Negative (Negative)
[2018-01-11 05:28] LABS: Basophils # 0.1 10*3/uL (0.0-0.2); Basophils % 2.2 % (0.0-0.8); Eosinophils # 0.1 10*3/uL (0.0-0.87); Eosinophils % 2.2 % (0.00-10.9); Immature Granulocytes % 0.4 %; Immature Granulocytes Absolute 0.02 #; Lymphocytes % 17.6 % (21.3-54.2); Mean Corpuscular HGB Conc 30.7 GM/DL (32-36); Mean Corpuscular Hemoglobin 26 PG (27-34); Mean Corpuscular Volume 85.5 FL (87-102); Mean Platelet Volume 10.3 FL (9.6-12.0); Monocytes # 0.8 10*3/uL (0.11-0.8); Monocytes % 14.4 % (1.7-12.7); Neutrophils # 3.5 10*3/uL (1.4-7.4); Neutrophils % 63.2 % (38.7-73.9); Platelet Count 257 T/CUMM (130-400); Red Cell Distribution Width 17.3 % (9.3-17.3); White Blood Count 5.6 T/CUMM (4-12)
[2018-01-11 05:56] LABS: Hemoglobin 9.2 GM/DL (12.0-16.0); Red Blood Count 3.51 MC/CUMM (3.8-5.5)
[2018-01-11 06:19] LABS: Albumin 3.3 G/DL (3.4-5.0); Bilirubin,Total 0.7 MG/DL (0.2-1.0); Calcium 9.4 MG/DL (8.5-10.1); Osmolality,Calculated 277.4 MOS/KG (273-304); Potassium 3.1 MMOL/L (3.5-5.1); Total Protein 6.8 G/DL (6.4-8.3)
[2018-01-11] MEDS ORDERED: FUROSEMIDE 20 MG/2 ML VIAL IV PRN (07:00)
[2018-01-11] MEDS ORDERED: PREGABALIN 50 MG CAPSULE PO PRN (08:24)
[2018-01-11] MEDS ORDERED: hydrALAZINE 20 MG/1 ML VIAL IV PRN (08:25)
[2018-01-11] MEDS: ROSUVASTATIN 20 MG TABLET PO SCH (08:58)
[2018-01-11] MEDS: MAGNESIUM OXIDE 400 MG TABLET PO SCH ×2 (08:58→22:25)
[2018-01-11] MEDS: COLCHICINE 0.6 MG TABLET PO SCH (08:58)
[2018-01-11] MEDS: LOSARTAN 50 MG TABLET PO SCH (08:58)
[2018-01-11] MEDS: ALLOPURINOL 100 MG TABLET PO SCH (08:59)
[2018-01-11] MEDS: FERROUS SULFATE 325 MG TABLET PO SCH (08:59)
[2018-01-11] MEDS: FOLIC ACID 1 MG TABLET PO SCH (08:59)
[2018-01-11] MEDS: CITALOPRAM 20 MG TABLET PO SCH (08:59)
[2018-01-11] MEDS: PANTOPRAZOLE 40 MG TABLET PO SCH (08:59)
[2018-01-11] MEDS: DOCUSATE SODIUM 100 MG CAPSULE PO SCH ×2 (09:00→22:25)
[2018-01-11] MEDS: MULTIVITAMIN (BEROCCA) TABLET PO SCH (09:02)
[2018-01-11] MEDS ORDERED: MAGNESIUM CITRATE 300 ML BOTTLE PO ONE (17:11)
[2018-01-12] MEDS ORDERED: LEVOTHYROXINE 200 MCG TABLET PO SCH (06:30)
[2018-01-12 07:41] VITALS: BP 156/99
[2018-01-12] MEDS: FERROUS SULFATE 325 MG TABLET PO SCH (10:35)
[2018-01-12] MEDS: LOSARTAN 50 MG TABLET PO SCH (10:35)
[2018-01-12] MEDS: COLCHICINE 0.6 MG TABLET PO SCH (10:35)
[2018-01-12] MEDS: MULTIVITAMIN (BEROCCA) TABLET PO SCH (10:35)
[2018-01-12] MEDS: CITALOPRAM 20 MG TABLET PO SCH (10:35)
[2018-01-12] MEDS: MAGNESIUM OXIDE 400 MG TABLET PO SCH (10:35)
[2018-01-12] MEDS: ROSUVASTATIN 20 MG TABLET PO SCH (10:35)
[2018-01-12] MEDS: FOLIC ACID 1 MG TABLET PO SCH (10:35)
[2018-01-12] MEDS: DOCUSATE SODIUM 100 MG CAPSULE PO SCH (10:35)
[2018-01-12] MEDS: PANTOPRAZOLE 40 MG TABLET PO SCH (10:36)
[2018-01-12] MEDS: ALLOPURINOL 100 MG TABLET PO SCH (10:36)
== END 2018-01-12 11:20 | disposition home or self-care (01) ==
LOC: N.2E
PROVIDERS: ADMIT Family Medicine; ATTEND Family Medicine

== ENCOUNTER 2018-02-04 12:03 | Inpatient (IN) ==
[2018-02-04] MEDS ORDERED: ONDANSETRON ODT 4 MG TABLET PO PRN (12:35)
[2018-02-04] MEDS ORDERED: SODIUM CHLORIDE 0.9% 2,000 ML IV STA (12:35)
[2018-02-04 13:44] LABS: Basophils % 0.6 % (0.0-0.8); Eosinophils # 0.1 10*3/uL (0.0-0.87); Eosinophils % 0.8 % (0.00-10.9); Hematocrit 28.9 VOL% (35.7-47.0); Hemoglobin 8.9 GM/DL (12.0-16.0); Immature Granulocytes % 0.6 %; Immature Granulocytes Absolute 0.04 #; Lymphocytes # 0.9 10*3/uL (1.4-4.0); Lymphocytes % 13.1 % (21.3-54.2); Mean Corpuscular HGB Conc 30.8 GM/DL (32-36); Mean Corpuscular Hemoglobin 27 PG (27-34); Mean Corpuscular Volume 87.3 FL (87-102); Mean Platelet Volume 10.5 FL (9.6-12.0); Monocytes # 0.4 10*3/uL (0.11-0.8); Monocytes % 5.8 % (1.7-12.7); NRBC # 0.02 10*3/uL; Neutrophils # 5.7 10*3/uL (1.4-7.4); Neutrophils % 79.1 % (38.7-73.9); Platelet Count 245 T/CUMM (130-400); Red Blood Count 3.31 MC/CUMM (3.8-5.5); White Blood Count 7.2 T/CUMM (4-12)
[2018-02-04 14:04] LABS: Albumin 3.6 G/DL (3.4-5.0); Bilirubin,Total 0.4 MG/DL (0.2-1.0); Calcium 9.7 MG/DL (8.5-10.1); Osmolality,Calculated 265.5 MOS/KG (273-304); Potassium 3.4 MMOL/L (3.5-5.1); Total Protein 7.8 G/DL (6.4-8.3)
[2018-02-04] MEDS ORDERED: PREGABALIN 50 MG CAPSULE PO PRN (16:31)
[2018-02-04] MEDS ORDERED: traMADol 50 MG TABLET PO PRN (16:31)
[2018-02-04] MEDS ORDERED: ACETAMINOPHEN 500 MG TABLET PO PRN (16:31)
[2018-02-04] MEDS ORDERED: ACETAMINOPHEN 325 MG TABLET PO PRN (16:31)
[2018-02-04 18:28] LABS: Apearance,Urine CLOUDY (Clear); Bacteria,Urine Many /HPF (Few); Bilirubin,Urine Negative (Negative); Blood, Urine Negative (Negative); Glucose,Urine (UA) Negative (Negative); Hyaline Casts,Urine 11 /LPF (0-3); Ketones,Urine 5 mg/dL (Negative); Mucus,Urine Occasional /LPF (Occasional); Nitrite,Urine Positive (Negative); Protein,Urine Negative; RBC,Urine 2 /HPF (0-4); Squamous Epithelial Cell,Urine Occasional /HPF (0-10); Urine Color Yellow (Yellow); Urine Specific Gravity 1.006 (1.001-1.035); Urine Urobilinogen < 2.0 EU/DL (0.2-1.0); WBC,Urine 19 /HPF (0-6)
[2018-02-04] MEDS: SODIUM CHLORIDE 0.9% 1,000 ML IV SCH (18:37)
[2018-02-04] MEDS: FERROUS SULFATE 325 MG TABLET PO SCH (20:46)
[2018-02-04] MEDS: DOCUSATE SODIUM 100 MG CAPSULE PO SCH (20:46)
[2018-02-05] MEDS: SODIUM CHLORIDE 0.9% 1,000 ML IV SCH ×3 (02:51→14:41)
[2018-02-05 04:49] LABS: Basophils # 0.1 10*3/uL (0.0-0.2); Eosinophils # 0.2 10*3/uL (0.0-0.87); Eosinophils % 3.4 % (0.00-10.9); Hemoglobin 7.6 GM/DL (12.0-16.0); Immature Granulocytes % 0.4 %; Immature Granulocytes Absolute 0.02 #; Lymphocytes # 0.8 10*3/uL (1.4-4.0); Lymphocytes % 15.6 % (21.3-54.2); Mean Corpuscular HGB Conc 30.4 GM/DL (32-36); Mean Corpuscular Hemoglobin 27 PG (27-34); Mean Platelet Volume 10.7 FL (9.6-12.0); Monocytes # 0.5 10*3/uL (0.11-0.8); Monocytes % 9.4 % (1.7-12.7); Neutrophils # 3.5 10*3/uL (1.4-7.4); Neutrophils % 70.2 % (38.7-73.9); Platelet Count 168 T/CUMM (130-400); Red Blood Count 2.81 MC/CUMM (3.8-5.5)
[2018-02-05 05:33] LABS: Calcium 8.2 MG/DL (8.5-10.1); Osmolality,Calculated 276.5 MOS/KG (273-304); Potassium 3.2 MMOL/L (3.5-5.1)
[2018-02-05] MEDS: LEVOTHYROXINE 25 MCG TABLET PO SCH (09:49)
[2018-02-05] MEDS: metroNIDAZOLE INJ 500 MG in PREMIX 1 EACH IV SCH ×2 (09:49→18:17)
[2018-02-05] MEDS: DOCUSATE SODIUM 100 MG CAPSULE PO SCH ×2 (09:49→20:47)
[2018-02-05] MEDS: FERROUS SULFATE 325 MG TABLET PO SCH ×2 (09:49→20:47)
[2018-02-05] MEDS: FOLIC ACID 1 MG TABLET PO SCH (09:49)
[2018-02-05] MEDS: PANTOPRAZOLE 40 MG TABLET PO SCH (09:49)
[2018-02-05] MEDS: ROSUVASTATIN 20 MG TABLET PO SCH (09:49)
[2018-02-05] MEDS: CYANOCOBALAMIN 500 MCG TABLET PO SCH (09:49)
[2018-02-05] MEDS: ALLOPURINOL 100 MG TABLET PO SCH (09:49)
[2018-02-05] MEDS: LEVOFLOXACIN INJ 500 MG in PREMIX 1 EACH IV SCH (11:06)
[2018-02-06] MEDS: metroNIDAZOLE INJ 500 MG in PREMIX 1 EACH IV SCH ×3 (00:17→17:41)
[2018-02-06] MEDS: SODIUM CHLORIDE 0.9% 1,000 ML IV SCH ×4 (00:19→17:07)
[2018-02-06 04:12] LABS: Basophils # 0.1 10*3/uL (0.0-0.2); Eosinophils # 0.1 10*3/uL (0.0-0.87); Eosinophils % 2.6 % (0.00-10.9); Hematocrit 25.4 VOL% (35.7-47.0); Hemoglobin 7.6 GM/DL (12.0-16.0); Immature Granulocytes Absolute 0.05 #; Lymphocytes # 0.8 10*3/uL (1.4-4.0); Mean Corpuscular HGB Conc 29.9 GM/DL (32-36); Mean Corpuscular Hemoglobin 27 PG (27-34); Mean Corpuscular Volume 90.7 FL (87-102); Mean Platelet Volume 10.9 FL (9.6-12.0); Monocytes # 0.6 10*3/uL (0.11-0.8); Monocytes % 11.4 % (1.7-12.7); NRBC # 0.02 10*3/uL; Neutrophils # 3.4 10*3/uL (1.4-7.4); Platelet Count 156 T/CUMM (130-400); Red Cell Distribution Width 21.2 % (9.3-17.3)
[2018-02-06 04:39] LABS: Calcium 7.4 MG/DL (8.5-10.1); Osmolality,Calculated 281.1 MOS/KG (273-304); Potassium 2.9 MMOL/L (3.5-5.1)
[2018-02-06 08:53] LABS: % Iron Saturation 77.7 % (18-50); Ferritin 107.9 ng/ml (8-252)
[2018-02-06 09:34] LABS: Folate 11.1 NG/ML (5.4-24.0)
[2018-02-06] MEDS: CYANOCOBALAMIN 500 MCG TABLET PO SCH (10:00)
[2018-02-06] MEDS: ALLOPURINOL 100 MG TABLET PO SCH (10:00)
[2018-02-06] MEDS: FOLIC ACID 1 MG TABLET PO SCH (10:00)
[2018-02-06] MEDS: PANTOPRAZOLE 40 MG TABLET PO SCH (10:00)
[2018-02-06] MEDS: FERROUS SULFATE 325 MG TABLET PO SCH ×2 (10:00→20:45)
[2018-02-06] MEDS: DOCUSATE SODIUM 100 MG CAPSULE PO SCH ×2 (10:00→20:45)
[2018-02-06] MEDS: LEVOTHYROXINE 25 MCG TABLET PO SCH (10:00)
[2018-02-06] MEDS: ROSUVASTATIN 20 MG TABLET PO SCH (10:02)
[2018-02-06] MEDS: LEVOFLOXACIN INJ 500 MG in PREMIX 1 EACH IV SCH (11:21)
[2018-02-06] MEDS: POTASSIUM BICARB EFFERVESCENT 25 MEQ TABLET PO SCH (20:45)
[2018-02-07] MEDS: SODIUM CHLORIDE 0.9% 1,000 ML IV SCH ×2 (00:01→07:00)
[2018-02-07 07:27] LABS: Calcium 7.9 MG/DL (8.5-10.1); Osmolality,Calculated 280.1 MOS/KG (273-304); Potassium 2.8 MMOL/L (3.5-5.1)
[2018-02-07 07:48] LABS: Basophils # 0.1 10*3/uL (0.0-0.2); Basophils % 1.8 % (0.0-0.8); Eosinophils # 0.1 10*3/uL (0.0-0.87); Hematocrit 27.1 VOL% (35.7-47.0); Hemoglobin 8.3 GM/DL (12.0-16.0); Immature Granulocytes Absolute 0.04 #; Lymphocytes # 0.7 10*3/uL (1.4-4.0); Lymphocytes % 17.5 % (21.3-54.2); Mean Corpuscular HGB Conc 30.6 GM/DL (32-36); Mean Corpuscular Hemoglobin 28 PG (27-34); Mean Corpuscular Volume 89.7 FL (87-102); Mean Platelet Volume 11.4 FL (9.6-12.0); Monocytes # 0.5 10*3/uL (0.11-0.8); Monocytes % 12.9 % (1.7-12.7); NRBC # 0.02 10*3/uL; Neutrophils # 2.5 10*3/uL (1.4-7.4); Neutrophils % 63.8 % (38.7-73.9); Platelet Count 164 T/CUMM (130-400); Red Blood Count 3.02 MC/CUMM (3.8-5.5)
[2018-02-07] MEDS: ROSUVASTATIN 20 MG TABLET PO SCH (09:48)
[2018-02-07] MEDS: LEVOTHYROXINE 25 MCG TABLET PO SCH (09:48)
[2018-02-07] MEDS: ALLOPURINOL 100 MG TABLET PO SCH (09:49)
[2018-02-07] MEDS: POTASSIUM BICARB EFFERVESCENT 25 MEQ TABLET PO SCH ×2 (09:49→21:01)
[2018-02-07] MEDS: FOLIC ACID 1 MG TABLET PO SCH (09:49)
[2018-02-07] MEDS: CYANOCOBALAMIN 500 MCG TABLET PO SCH (09:49)
[2018-02-07] MEDS: FERROUS SULFATE 325 MG TABLET PO SCH ×2 (09:49→21:01)
[2018-02-07] MEDS: metroNIDAZOLE INJ 500 MG in PREMIX 1 EACH IV SCH ×3 (09:50→17:45)
[2018-02-07] MEDS: DOCUSATE SODIUM 100 MG CAPSULE PO SCH ×2 (09:50→21:01)
[2018-02-07] MEDS: PANTOPRAZOLE 40 MG TABLET PO SCH (09:50)
[2018-02-07] MEDS: LEVOFLOXACIN INJ 500 MG in PREMIX 1 EACH IV SCH (11:00)
[2018-02-08] MEDS: metroNIDAZOLE INJ 500 MG in PREMIX 1 EACH IV SCH ×3 (01:57→20:20)
[2018-02-08 04:40] LABS: Eosinophils # 0.1 10*3/uL (0.0-0.87); Eosinophils % 3.7 % (0.00-10.9); Hematocrit 25.6 VOL% (35.7-47.0); Hemoglobin 7.9 GM/DL (12.0-16.0); Immature Granulocytes % 0.8 %; Immature Granulocytes Absolute 0.03 #; Lymphocytes # 0.7 10*3/uL (1.4-4.0); Lymphocytes % 18.8 % (21.3-54.2); Mean Corpuscular HGB Conc 30.9 GM/DL (32-36); Mean Corpuscular Hemoglobin 27 PG (27-34); Mean Corpuscular Volume 88.6 FL (87-102); Mean Platelet Volume 10.7 FL (9.6-12.0); Monocytes # 0.6 10*3/uL (0.11-0.8); Monocytes % 15.1 % (1.7-12.7); NRBC # 0.02 10*3/uL; Neutrophils # 2.3 10*3/uL (1.4-7.4); Neutrophils % 60.6 % (38.7-73.9); Platelet Count 176 T/CUMM (130-400); Red Blood Count 2.89 MC/CUMM (3.8-5.5); Red Cell Distribution Width 22.6 % (9.3-17.3); White Blood Count 3.8 T/CUMM (4-12)
[2018-02-08 05:05] LABS: Hypochromasia 1+; Ovalocytes Slight; Platelet Estimate Normal
[2018-02-08 05:06] LABS: Giant Platelets Few
[2018-02-08 05:09] LABS: Calcium 7.7 MG/DL (8.5-10.1); Osmolality,Calculated 278.3 MOS/KG (273-304)
[2018-02-08] MEDS ORDERED: MAGNESIUM SULF RIDER 4 GM in PREMIX 1 EACH IV PRN (07:35)
[2018-02-08] MEDS: LEVOTHYROXINE 25 MCG TABLET PO SCH (07:48)
[2018-02-08] MEDS: POTASSIUM CHLORIDE RIDER 10 MEQ in PREMIX 1 EACH IV SCH ×4 (08:16→12:30)
[2018-02-08] MEDS: LEVOFLOXACIN INJ 500 MG in PREMIX 1 EACH IV SCH (10:19)
[2018-02-08] MEDS: LOSARTAN 50 MG TABLET PO SCH (11:48)
[2018-02-08] MEDS ORDERED: LIDOCAINE 1% 5 ML VIAL ONE (13:20)
[2018-02-08] MEDS ORDERED: PROPOFOL 200 MG/20 ML VIAL IV ONE (13:20)
[2018-02-08] MEDS ORDERED: SODIUM CHLORIDE 0.9% 1,000 ML IV PRN (14:03)
[2018-02-08] MEDS ORDERED: FUROSEMIDE 20 MG/2 ML VIAL IV PRN (14:07)
[2018-02-08] MEDS: SODIUM CHLORIDE 0.9% 1,000 ML IV SCH (14:42)
[2018-02-08] MEDS: FERROUS SULFATE 325 MG TABLET PO SCH ×2 (15:06→20:24)
[2018-02-08] MEDS: ROSUVASTATIN 20 MG TABLET PO SCH (15:06)
[2018-02-08] MEDS: CYANOCOBALAMIN 500 MCG TABLET PO SCH (15:06)
[2018-02-08] MEDS: DOCUSATE SODIUM 100 MG CAPSULE PO SCH ×2 (15:06→20:24)
[2018-02-08] MEDS: FOLIC ACID 1 MG TABLET PO SCH (15:06)
[2018-02-08] MEDS: COLCHICINE 0.6 MG TABLET PO SCH (15:06)
[2018-02-08] MEDS: PANTOPRAZOLE 40 MG TABLET PO SCH (15:07)
[2018-02-08] MEDS: POTASSIUM BICARB EFFERVESCENT 25 MEQ TABLET PO SCH ×2 (15:07→21:16)
[2018-02-08] MEDS: MAGNESIUM SULF RIDER 2 GM in PREMIX 1 EACH IV PRN ×2 (15:07→17:12)
[2018-02-08] MEDS: busPIRone 5 MG TABLET PO SCH ×2 (15:07→20:24)
[2018-02-08] MEDS: ALLOPURINOL 100 MG TABLET PO SCH (15:07)
[2018-02-08] MEDS: FUROSEMIDE 20 MG/2 ML VIAL IV PRN (20:30)
[2018-02-09] MEDS: FUROSEMIDE 20 MG/2 ML VIAL IV PRN (00:58)
[2018-02-09] MEDS: metroNIDAZOLE INJ 500 MG in PREMIX 1 EACH IV SCH ×2 (04:44→13:21)
[2018-02-09] MEDS: LEVOTHYROXINE 25 MCG TABLET PO SCH (06:13)
[2018-02-09 07:06] LABS: Basophils # 0.1 10*3/uL (0.0-0.2); Basophils % 1.4 % (0.0-0.8); Eosinophils # 0.2 10*3/uL (0.0-0.87); Eosinophils % 3.6 % (0.00-10.9); Hematocrit 33.9 VOL% (35.7-47.0); Immature Granulocytes Absolute 0.05 #; Lymphocytes # 0.7 10*3/uL (1.4-4.0); Mean Corpuscular HGB Conc 32.7 GM/DL (32-36); Mean Corpuscular Hemoglobin 29 PG (27-34); Mean Corpuscular Volume 87.6 FL (87-102); Mean Platelet Volume 11.4 FL (9.6-12.0); Monocytes # 0.8 10*3/uL (0.11-0.8); Monocytes % 16.4 % (1.7-12.7); Neutrophils # 3.2 10*3/uL (1.4-7.4); Neutrophils % 63.6 % (38.7-73.9); Platelet Count 227 T/CUMM (130-400); Red Blood Count 3.87 MC/CUMM (3.8-5.5); Red Cell Distribution Width 20.9 % (9.3-17.3); White Blood Count 5.1 T/CUMM (4-12)
[2018-02-09 07:09] LABS: Hemoglobin 11.1 GM/DL (12.0-16.0)
[2018-02-09 07:19] LABS: Eosinophils 1 % (0-10); Lymphocytes 15 % (20-55); Segmented Neutrophils 73 % (50-85); Total Cells Counted 100
[2018-02-09 07:20] LABS: Hypochromasia 1+; Microcytosis 1+; Platelet Estimate Normal; Polychromasia Slight
[2018-02-09 07:21] LABS: Calcium 8.5 MG/DL (8.5-10.1); Osmolality,Calculated 273.7 MOS/KG (273-304); Potassium 3.5 MMOL/L (3.5-5.1)
[2018-02-09 07:22] LABS: Target Cells Slight
[2018-02-09] MEDS: LEVOFLOXACIN INJ 500 MG in PREMIX 1 EACH IV SCH (08:39)
[2018-02-09] MEDS: POTASSIUM BICARB EFFERVESCENT 25 MEQ TABLET PO SCH (08:40)
[2018-02-09] MEDS: ALLOPURINOL 100 MG TABLET PO SCH (08:41)
[2018-02-09] MEDS: LOSARTAN 50 MG TABLET PO SCH (08:41)
[2018-02-09] MEDS: busPIRone 5 MG TABLET PO SCH (08:41)
[2018-02-09] MEDS: COLCHICINE 0.6 MG TABLET PO SCH (08:41)
[2018-02-09] MEDS: PANTOPRAZOLE 40 MG TABLET PO SCH (08:41)
[2018-02-09] MEDS: DOCUSATE SODIUM 100 MG CAPSULE PO SCH (08:41)
[2018-02-09] MEDS: FERROUS SULFATE 325 MG TABLET PO SCH (08:41)
[2018-02-09] MEDS: FOLIC ACID 1 MG TABLET PO SCH (08:41)
[2018-02-09] MEDS: CYANOCOBALAMIN 500 MCG TABLET PO SCH (08:41)
[2018-02-09] MEDS: ROSUVASTATIN 20 MG TABLET PO SCH (08:41)
[2018-02-09 12:31] VITALS: BP 152/88
[2018-02-09] MEDS: SODIUM CHLORIDE 0.9% 1,000 ML IV SCH (13:20)
== END 2018-02-09 13:35 | disposition home or self-care (01) | DRG 391 ==
LOC: N.ED 12:03 → N.EDINP 14:16 → N.2E 16:23
PROVIDERS: ADMIT Family Medicine; ATTEND Family Medicine

== ENCOUNTER 2018-03-10 13:20 | Observation (INO) ==
[2018-03-10] MEDS ORDERED: SODIUM CHLORIDE 0.9% 2,000 ML IV STA (13:41)
[2018-03-10 14:46] LABS: Basophils # 0.1 10*3/uL (0.0-0.2); Eosinophils % 0.4 % (0.00-10.9); Hematocrit 31.3 VOL% (35.7-47.0); Hemoglobin 10.3 GM/DL (12.0-16.0); Immature Granulocytes % 0.8 %; Immature Granulocytes Absolute 0.04 #; Lymphocytes # 0.8 10*3/uL (1.4-4.0); Lymphocytes % 16.6 % (21.3-54.2); Mean Corpuscular HGB Conc 32.9 GM/DL (32-36); Mean Corpuscular Hemoglobin 31 PG (27-34); Mean Corpuscular Volume 92.6 FL (87-102); Mean Platelet Volume 11.5 FL (9.6-12.0); Monocytes # 0.4 10*3/uL (0.11-0.8); Monocytes % 7.8 % (1.7-12.7); Neutrophils # 3.7 10*3/uL (1.4-7.4); Neutrophils % 73.4 % (38.7-73.9); Platelet Count 119 T/CUMM (130-400); Red Blood Count 3.38 MC/CUMM (3.8-5.5); Red Cell Distribution Width 19.2 % (9.3-17.3)
[2018-03-10 14:54] LABS: PT Patient Result 10.5 SECS
[2018-03-10 15:06] LABS: Alanine Aminotransferase 44 U/L (13-56); Albumin 3.8 G/DL (3.4-5.0); Alkaline Phosphatase 114 U/L (45-117); Aspartate Amino Transferase 88 U/L (0-37); Bilirubin,Total < 0.39 MG/DL (0.2-1.0); Blood Urea Nitrogen 28 MG/DL (7-18); Glucose 90 MG/DL (74-106); Osmolality,Calculated 273.2 MOS/KG (273-304); Potassium 3.4 MMOL/L (3.5-5.1); Sodium 134 MMOL/L (136-145); Total Protein 7.6 G/DL (6.4-8.3)
[2018-03-10 15:40] LABS: Apearance,Urine Slightly Hazy (Clear); Bilirubin,Urine Negative (Negative); Blood, Urine Negative (Negative); Glucose,Urine (UA) Negative (Negative); Hyaline Casts,Urine 2 /LPF (0-3); Ketones,Urine Negative (Negative); Mucus,Urine Occasional /LPF (Occasional); Nitrite,Urine Negative (Negative); Protein,Urine Negative; RBC,Urine 1 /HPF (0-4); Squamous Epithelial Cell,Urine Occasional /HPF (0-10); Urine Color Yellow (Yellow); Urine Specific Gravity 1.006 (1.001-1.035); Urine Urobilinogen < 2.0 EU/DL (0.2-1.0)
[2018-03-10 15:43] LABS: Barbiturates Screen,Urine Negative (Negative); Benzodiazepines Screen,Urine Negative (Negative); Cannabinoid Screen,Urine Negative (Negative); Opiate Screen,Urine Negative (Negative); Phencyclidine Screen,Urine Negative (Negative)
[2018-03-10] MEDS ORDERED: ONDANSETRON 4 MG/2 ML VIAL IV PRN (17:36)
[2018-03-10] MEDS: SODIUM CHLORIDE 0.9% 1,000 ML IV SCH (17:43)
[2018-03-10] MEDS: DOCUSATE SODIUM 100 MG CAPSULE PO SCH (20:21)
[2018-03-10] MEDS ORDERED: CYCLOBENZAPRINE 10 MG TABLET PO PRN (21:26)
[2018-03-10] MEDS ORDERED: NON-FORMULARY MEDICATION (Esomeprazole Magnesium [Esomeprazole] 40 MG) PO PRN (21:26)
[2018-03-11 04:31] LABS: Basophils # 0.1 10*3/uL (0.0-0.2); Basophils % 1.2 % (0.0-0.8); Eosinophils # 0.1 10*3/uL (0.0-0.87); Eosinophils % 1.9 % (0.00-10.9); Hematocrit 27.2 VOL% (35.7-47.0); Hemoglobin 8.8 GM/DL (12.0-16.0); Immature Granulocytes % 0.5 %; Immature Granulocytes Absolute 0.02 #; Lymphocytes # 0.7 10*3/uL (1.4-4.0); Lymphocytes % 17.1 % (21.3-54.2); Mean Corpuscular HGB Conc 32.4 GM/DL (32-36); Mean Corpuscular Hemoglobin 30 PG (27-34); Mean Corpuscular Volume 93.2 FL (87-102); Mean Platelet Volume 11.9 FL (9.6-12.0); Monocytes # 0.5 10*3/uL (0.11-0.8); Monocytes % 11.6 % (1.7-12.7); Neutrophils # 2.8 10*3/uL (1.4-7.4); Neutrophils % 67.7 % (38.7-73.9); Platelet Count 90 T/CUMM (130-400); Red Blood Count 2.92 MC/CUMM (3.8-5.5); Red Cell Distribution Width 19.4 % (9.3-17.3); White Blood Count 4.1 T/CUMM (4-12)
[2018-03-11 05:05] LABS: Calcium 7.9 MG/DL (8.5-10.1); Osmolality,Calculated 277.7 MOS/KG (273-304); Potassium 3.1 MMOL/L (3.5-5.1); T4 (Thyroxine) 5.9 UG/DL (4.7-13.3); Thyroid Stimulating Hormone 39.3 uIU/ml (0.358-3.74)
[2018-03-11] MEDS: LEVOTHYROXINE 200 MCG TABLET PO SCH (05:55)
[2018-03-11] MEDS: SODIUM CHLORIDE 0.9% 1,000 ML IV SCH (05:55)
[2018-03-11] MEDS: LEVOTHYROXINE 25 MCG TABLET PO SCH (05:55)
[2018-03-11 05:59] LABS: Platelet Estimate Decreased; Polychromasia Slight; Target Cells Slight
[2018-03-11] MEDS ORDERED: PANTOPRAZOLE 40 MG TABLET PO SCH (09:00)
[2018-03-11] MEDS ORDERED: MAGNESIUM SULF RIDER 2 GM in PREMIX 1 EACH IV ONE (09:00)
[2018-03-11] MEDS ORDERED: MAGNESIUM OXIDE 400 MG TABLET PO SCH (09:00)
[2018-03-11] MEDS ORDERED: SODIUM CHLORIDE 0.9% 1,000 ML IV PRN (09:30)
[2018-03-11] MEDS ORDERED: FUROSEMIDE 20 MG/2 ML VIAL IV PRN (09:30)
[2018-03-11] MEDS ORDERED: IRON SUCROSE 100 MG/5 ML VIAL IV SCH (10:00)
[2018-03-11] MEDS: SODIUM CHLOR 0.9% KCL 40 MEQ 40 MEQ/1,000 ML BAG IV SCH (10:04)
[2018-03-11] MEDS: PANTOPRAZOLE 40 MG TABLET PO SCH ×2 (10:05→21:39)
[2018-03-11] MEDS: CYANOCOBALAMIN 500 MCG TABLET PO SCH (10:05)
[2018-03-11] MEDS: DOCUSATE SODIUM 100 MG CAPSULE PO SCH ×2 (10:05→21:38)
[2018-03-11] MEDS: ALLOPURINOL 100 MG TABLET PO SCH (10:05)
[2018-03-11] MEDS: ROSUVASTATIN 20 MG TABLET PO SCH (10:05)
[2018-03-11] MEDS: busPIRone 10 MG TABLET PO SCH ×2 (10:08→21:38)
[2018-03-11 11:02] LABS: Hematocrit 25.9 VOL% (35.7-47.0); Hemoglobin 8.5 GM/DL (12.0-16.0)
[2018-03-11] MEDS: MAGNESIUM CHLORIDE 64 MG TABLET PO SCH ×3 (14:17→21:38)
[2018-03-11] MEDS: IRON SUCROSE IV SCH (14:17)
[2018-03-11] MEDS: SODIUM CHLORIDE 0.9% IV SCH (14:17)
[2018-03-11 18:47] LABS: Hematocrit 27.9 VOL% (35.7-47.0); Hemoglobin 9.1 GM/DL (12.0-16.0)
[2018-03-12 04:11] LABS: Hematocrit 25.6 VOL% (35.7-47.0); Hemoglobin 8.5 GM/DL (12.0-16.0)
[2018-03-12] MEDS: SODIUM CHLOR 0.9% KCL 40 MEQ 40 MEQ/1,000 ML BAG IV SCH ×3 (05:51→18:31)
[2018-03-12] MEDS: LEVOTHYROXINE 200 MCG TABLET PO SCH (05:52)
[2018-03-12] MEDS: LEVOTHYROXINE 25 MCG TABLET PO SCH (05:52)
[2018-03-12 10:06] LABS: Hematocrit 27.5 VOL% (35.7-47.0)
[2018-03-12] MEDS: busPIRone 10 MG TABLET PO SCH ×2 (10:15→21:37)
[2018-03-12] MEDS: CYANOCOBALAMIN 500 MCG TABLET PO SCH (10:15)
[2018-03-12] MEDS: ROSUVASTATIN 20 MG TABLET PO SCH (10:15)
[2018-03-12] MEDS: MAGNESIUM CHLORIDE 64 MG TABLET PO SCH ×4 (10:15→21:37)
[2018-03-12] MEDS: PANTOPRAZOLE 40 MG TABLET PO SCH ×2 (10:16→21:37)
[2018-03-12] MEDS: ALLOPURINOL 100 MG TABLET PO SCH (10:16)
[2018-03-12] MEDS: DOCUSATE SODIUM 100 MG CAPSULE PO SCH ×2 (10:16→21:37)
[2018-03-12] MEDS: SODIUM CHLORIDE 0.9% IV SCH (10:17)
[2018-03-12] MEDS: IRON SUCROSE IV SCH (10:17)
[2018-03-12 19:35] LABS: Hematocrit 26.7 VOL% (35.7-47.0); Hemoglobin 8.7 GM/DL (12.0-16.0)
[2018-03-13 02:27] LABS: Hematocrit 27.2 VOL% (35.7-47.0)
[2018-03-13 02:30] LABS: Basophils % 1.2 % (0.0-0.8); Eosinophils # 0.1 10*3/uL (0.0-0.87); Eosinophils % 2.6 % (0.00-10.9); Hematocrit 27.9 VOL% (35.7-47.0); Hemoglobin 8.7 GM/DL (12.0-16.0); Immature Granulocytes % 0.6 %; Immature Granulocytes Absolute 0.02 #; Lymphocytes # 0.7 10*3/uL (1.4-4.0); Lymphocytes % 19.7 % (21.3-54.2); Mean Corpuscular HGB Conc 31.2 GM/DL (32-36); Mean Corpuscular Hemoglobin 30 PG (27-34); Mean Corpuscular Volume 94.9 FL (87-102); Mean Platelet Volume 11.4 FL (9.6-12.0); Monocytes # 0.5 10*3/uL (0.11-0.8); Monocytes % 15.6 % (1.7-12.7); Neutrophils # 2.1 10*3/uL (1.4-7.4); Neutrophils % 60.3 % (38.7-73.9); Platelet Count 114 T/CUMM (130-400); Red Blood Count 2.94 MC/CUMM (3.8-5.5); Red Cell Distribution Width 19.2 % (9.3-17.3); White Blood Count 3.5 T/CUMM (4-12)
[2018-03-13 04:42] LABS: Anisocytosis 1+; Band Neutrophils 2 % (0-10); Eosinophils 7 % (0-10); Lymphocytes 25 % (20-55); Poikilocytosis 1+; Segmented Neutrophils 57 % (50-85); Total Cells Counted 100
[2018-03-13] MEDS: ACETAMINOPHEN 325 MG TABLET PO PRN (06:54)
[2018-03-13] MEDS: LEVOTHYROXINE 200 MCG TABLET PO SCH (06:55)
[2018-03-13] MEDS: LEVOTHYROXINE 25 MCG TABLET PO SCH (06:55)
[2018-03-13] MEDS: SODIUM CHLOR 0.9% KCL 40 MEQ 40 MEQ/1,000 ML BAG IV SCH ×3 (07:02→17:54)
[2018-03-13] MEDS: CYANOCOBALAMIN 500 MCG TABLET PO SCH (09:01)
[2018-03-13] MEDS: LOSARTAN 50 MG TABLET PO SCH (09:01)
[2018-03-13] MEDS: DOCUSATE SODIUM 100 MG CAPSULE PO SCH ×2 (09:01→22:04)
[2018-03-13] MEDS: busPIRone 10 MG TABLET PO SCH ×2 (09:02→22:04)
[2018-03-13] MEDS: FOLIC ACID 1 MG TABLET PO SCH (09:02)
[2018-03-13] MEDS: POTASSIUM CHLORIDE 20 MEQ TABLET PO SCH ×2 (09:02→17:53)
[2018-03-13] MEDS: MAGNESIUM CHLORIDE 64 MG TABLET PO SCH ×4 (09:02→22:04)
[2018-03-13] MEDS: IRON SUCROSE IV SCH (09:02)
[2018-03-13] MEDS: FERROUS SULFATE 325 MG TABLET PO SCH ×2 (09:02→22:04)
[2018-03-13] MEDS: ROSUVASTATIN 20 MG TABLET PO SCH (09:02)
[2018-03-13] MEDS: SODIUM CHLORIDE 0.9% IV SCH (09:02)
[2018-03-13] MEDS: PANTOPRAZOLE 40 MG TABLET PO SCH ×2 (09:02→22:04)
[2018-03-13] MEDS: predniSONE 10 MG TABLET PO SCH (09:02)
[2018-03-13] MEDS: ALLOPURINOL 100 MG TABLET PO SCH (09:06)
[2018-03-14] MEDS: LEVOTHYROXINE 200 MCG TABLET PO SCH (05:38)
[2018-03-14] MEDS: LEVOTHYROXINE 25 MCG TABLET PO SCH (05:38)
[2018-03-14] MEDS: SODIUM CHLOR 0.9% KCL 40 MEQ 40 MEQ/1,000 ML BAG IV SCH ×2 (06:56→09:11)
[2018-03-14 08:02] LABS: Basophils % 0.6 % (0.0-0.8); Eosinophils % 0.6 % (0.00-10.9); Hematocrit 28.7 VOL% (35.7-47.0); Hemoglobin 9.4 GM/DL (12.0-16.0); Immature Granulocytes % 0.8 %; Immature Granulocytes Absolute 0.04 #; Lymphocytes # 0.8 10*3/uL (1.4-4.0); Lymphocytes % 16.2 % (21.3-54.2); Mean Corpuscular HGB Conc 32.8 GM/DL (32-36); Mean Corpuscular Hemoglobin 31 PG (27-34); Mean Platelet Volume 11.5 FL (9.6-12.0); Monocytes # 0.6 10*3/uL (0.11-0.8); Monocytes % 11.3 % (1.7-12.7); Neutrophils # 3.4 10*3/uL (1.4-7.4); Neutrophils % 70.5 % (38.7-73.9); Platelet Count 171 T/CUMM (130-400); Red Blood Count 3.02 MC/CUMM (3.8-5.5); Red Cell Distribution Width 19.9 % (9.3-17.3); White Blood Count 4.9 T/CUMM (4-12)
[2018-03-14 08:36] LABS: Osmolality,Calculated 272.7 MOS/KG (273-304); Potassium 4.5 MMOL/L (3.5-5.1)
[2018-03-14] MEDS: POTASSIUM CHLORIDE 20 MEQ TABLET PO SCH ×2 (09:13→17:03)
[2018-03-14] MEDS: ROSUVASTATIN 20 MG TABLET PO SCH (09:13)
[2018-03-14] MEDS: PANTOPRAZOLE 40 MG TABLET PO SCH (09:13)
[2018-03-14] MEDS: FOLIC ACID 1 MG TABLET PO SCH (09:13)
[2018-03-14] MEDS: DOCUSATE SODIUM 100 MG CAPSULE PO SCH (09:13)
[2018-03-14] MEDS: LOSARTAN 50 MG TABLET PO SCH (09:14)
[2018-03-14] MEDS: FERROUS SULFATE 325 MG TABLET PO SCH (09:14)
[2018-03-14] MEDS: busPIRone 10 MG TABLET PO SCH (09:14)
[2018-03-14] MEDS: ALLOPURINOL 100 MG TABLET PO SCH (09:14)
[2018-03-14] MEDS: CYANOCOBALAMIN 500 MCG TABLET PO SCH (09:14)
[2018-03-14] MEDS: MAGNESIUM CHLORIDE 64 MG TABLET PO SCH ×3 (09:14→17:03)
[2018-03-14] MEDS: predniSONE 10 MG TABLET PO SCH (09:14)
[2018-03-14] MEDS: SODIUM CHLORIDE 0.9% IV SCH (10:53)
[2018-03-14] MEDS: IRON SUCROSE IV SCH (10:53)
[2018-03-14 12:13] VITALS: BP 139/88
[2018-03-14] MEDS: ACETAMINOPHEN 325 MG TABLET PO PRN (16:32)
== END 2018-03-14 18:09 | disposition home health service (06) ==
LOC: EDUNIT# → EDBD → N.ED 13:20 → N.EDINP 15:31 → INTOOBSV 15:31 → N.EDINP 16:45 → N.2E 17:32
PROVIDERS: ADMIT Family Medicine; ATTEND Family Medicine

== ENCOUNTER 2019-01-16 09:25 | Observation (INO) ==
[2019-01-16] MEDS ORDERED: ONDANSETRON 4 MG/2 ML VIAL IV PRN (11:36)
[2019-01-16] MEDS ORDERED: ACETAMINOPHEN 325 MG TABLET PO PRN (11:36)
[2019-01-16 12:00] LABS: Basophils # 0.1 10*3/uL (0.0-0.2); Basophils % 1.6 % (0.0-0.8); Eosinophils % 0.5 % (0.00-10.9); Hematocrit 23.3 VOL% (35.7-47.0); Hemoglobin 6.8 GM/DL (12.0-16.0); Immature Granulocytes % 0.2 %; Immature Granulocytes Absolute 0.01 #; Lymphocytes # 0.6 10*3/uL (1.4-4.0); Lymphocytes % 12.8 % (21.3-54.2); Mean Corpuscular HGB Conc 29.2 GM/DL (32-36); Mean Corpuscular Hemoglobin 27 PG (27-34); Mean Platelet Volume 9.1 FL (9.6-12.0); Monocytes # 0.6 10*3/uL (0.11-0.8); Monocytes % 12.5 % (1.7-12.7); NRBC # 0.02 10*3/uL; Neutrophils # 3.2 10*3/uL (1.4-7.4); Neutrophils % 72.4 % (38.7-73.9); Platelet Count 246 T/CUMM (130-400); Red Blood Count 2.48 MC/CUMM (3.8-5.5); Red Cell Distribution Width 17.2 % (9.3-17.3); White Blood Count 4.4 T/CUMM (4-12)
[2019-01-16] MEDS ORDERED: SODIUM CHLORIDE 0.9% 1,000 ML IV PRN (12:50)
[2019-01-16 19:01] LABS: Apearance,Urine Slightly Hazy (Clear); Bacteria,Urine Occasional /HPF (Few); Bilirubin,Urine Negative (Negative); Blood, Urine Negative (Negative); Glucose,Urine (UA) Negative (Negative); Hyaline Casts,Urine 96 /LPF (0-3); Ketones,Urine 5 mg/dL (Negative); Mucus,Urine Occasional /LPF (Occasional); Nitrite,Urine Negative (Negative); Protein,Urine 30 MG/DL; RBC,Urine 3 /HPF (0-4); Squamous Epithelial Cell,Urine Occasional /HPF (0-10); Urine Color Yellow (Yellow); WBC,Urine 33 /HPF (0-6)
[2019-01-16 20:11] LABS: Barbiturates Screen,Urine Negative (Negative); Benzodiazepines Screen,Urine Negative (Negative); Cannabinoid Screen,Urine Negative (Negative); Opiate Screen,Urine Positive (Negative); Phencyclidine Screen,Urine Negative (Negative)
[2019-01-16] MEDS: busPIRone 10 MG TABLET PO SCH (20:38)
[2019-01-16] MEDS: DOCUSATE SODIUM 100 MG CAPSULE PO SCH (20:38)
[2019-01-16] MEDS: ACETAMINOPHEN/CODEINE 300-30 MG TABLET PO SCH (20:38)
[2019-01-17 04:43] LABS: Basophils # 0.1 10*3/uL (0.0-0.2); Basophils % 1.9 % (0.0-0.8); Eosinophils # 0.1 10*3/uL (0.0-0.87); Eosinophils % 2.4 % (0.00-10.9); Hematocrit 29.2 VOL% (35.7-47.0); Immature Granulocytes % 0.5 %; Immature Granulocytes Absolute 0.02 #; Lymphocytes # 0.7 10*3/uL (1.4-4.0); Lymphocytes % 17.5 % (21.3-54.2); Mean Corpuscular HGB Conc 30.1 GM/DL (32-36); Mean Corpuscular Hemoglobin 28 PG (27-34); Mean Corpuscular Volume 92.1 FL (87-102); Mean Platelet Volume 9.7 FL (9.6-12.0); Monocytes # 0.7 10*3/uL (0.11-0.8); Monocytes % 15.6 % (1.7-12.7); NRBC # 0.02 10*3/uL; Neutrophils # 2.6 10*3/uL (1.4-7.4); Neutrophils % 62.1 % (38.7-73.9); Platelet Count 221 T/CUMM (130-400); Red Cell Distribution Width 16.3 % (9.3-17.3); White Blood Count 4.2 T/CUMM (4-12)
[2019-01-17 04:54] LABS: Red Blood Count 3.17 MC/CUMM (3.8-5.5)
[2019-01-17 04:55] LABS: Hemoglobin 8.8 GM/DL (12.0-16.0)
[2019-01-17 04:58] LABS: Albumin 3.2 G/DL (3.4-5.0); Calcium 8.5 MG/DL (8.5-10.1); Osmolality,Calculated 271.2 MOS/KG (273-304); Total Protein 6.8 G/DL (6.4-8.3)
[2019-01-17 05:06] LABS: Hypochromasia 1+; Ovalocytes Slight; Platelet Estimate Adequate
[2019-01-17] MEDS: SODIUM CHLORIDE 0.9% 1,000 ML IV SCH ×2 (06:53→08:30)
[2019-01-17] MEDS ORDERED: LEVOTHYROXINE 25 MCG TABLET PO SCH (07:00)
[2019-01-17] MEDS ORDERED: LEVOTHYROXINE 200 MCG TABLET PO SCH (07:00)
[2019-01-17] MEDS: ACETAMINOPHEN/CODEINE 300-30 MG TABLET PO SCH (08:28)
[2019-01-17] MEDS: busPIRone 10 MG TABLET PO SCH (08:28)
[2019-01-17] MEDS: DOCUSATE SODIUM 100 MG CAPSULE PO SCH (08:30)
[2019-01-17] MEDS ORDERED: ALLOPURINOL 100 MG TABLET PO SCH (09:00)
[2019-01-17] MEDS ORDERED: ROSUVASTATIN 20 MG TABLET PO SCH (09:00)
[2019-01-17] MEDS ORDERED: PANTOPRAZOLE 40 MG TABLET PO SCH (09:00)
[2019-01-17 12:07] VITALS: BP 135/93
== END 2019-01-17 14:18 | disposition home or self-care (01) ==
LOC: N.4E
PROVIDERS: ADMIT Family Medicine; ATTEND Family Medicine

== ENCOUNTER 2019-11-28 10:24 | Observation (INO) ==
[2019-11-28] MEDS ORDERED: ONDANSETRON 4 MG/2 ML VIAL IV PRN (11:01)
[2019-11-28] MEDS ORDERED: ACETAMINOPHEN 325 MG TABLET PO PRN (11:01)
[2019-11-28] MEDS ORDERED: CYCLOBENZAPRINE 10 MG TABLET PO PRN (11:03)
[2019-11-28] MEDS ORDERED: SODIUM CHLORIDE 0.9% 1,000 ML IV PRN (11:36)
[2019-11-28] MEDS ORDERED: hydrALAZINE 20 MG/1 ML VIAL IV PRN (12:10)
[2019-11-28] MEDS: MAGNESIUM CHLORIDE 64 MG TABLET PO SCH ×3 (13:12→20:36)
[2019-11-28] MEDS: POTASSIUM CHLORIDE 20 MEQ TABLET PO SCH (16:10)
[2019-11-28 17:44] LABS: Apearance,Urine CLEAR (Clear); Bacteria,Urine Occasional /HPF (Few); Bilirubin,Urine Negative (Negative); Blood, Urine Negative (Negative); Glucose,Urine (UA) Negative (Negative); Hyaline Casts,Urine 7 /LPF (0-3); Ketones,Urine Negative (Negative); Mucus,Urine Occasional /LPF (Occasional); Nitrite,Urine Negative (Negative); Protein,Urine Negative; RBC,Urine 1 /HPF (0-4); Squamous Epithelial Cell,Urine Occasional /HPF (0-10); Urine Color Yellow (Yellow); Urine Specific Gravity 1.016 (1.001-1.035); WBC,Urine 1 /HPF (0-6)
[2019-11-28] MEDS: DOCUSATE SODIUM 100 MG CAPSULE PO SCH (20:33)
[2019-11-28] MEDS: busPIRone 10 MG TABLET PO SCH (20:33)
[2019-11-29 00:22] LABS: Hematocrit 31.8 VOL% (35.7-47.0); Hemoglobin 9.7 GM/DL (12.0-16.0)
[2019-11-29] MEDS ORDERED: LEVOTHYROXINE 25 MCG TABLET PO SCH ×2 (06:30)
[2019-11-29] MEDS ORDERED: LEVOTHYROXINE 200 MCG TABLET PO SCH (06:30)
[2019-11-29 06:48] LABS: Basophils # 0.1 10*3/uL (0.0-0.2); Basophils % 2.4 % (0.0-0.8); Eosinophils # 0.1 10*3/uL (0.0-0.87); Eosinophils % 1.7 % (0.00-10.9); Hematocrit 31.7 VOL% (35.7-47.0); Hemoglobin 9.4 GM/DL (12.0-16.0); Immature Granulocytes % 0.7 %; Immature Granulocytes Absolute 0.03 #; Lymphocytes # 0.5 10*3/uL (1.4-4.0); Lymphocytes % 12.1 % (21.3-54.2); Mean Corpuscular HGB Conc 29.7 GM/DL (32-36); Mean Corpuscular Volume 96.9 FL (87-102); Mean Platelet Volume 9.7 FL (9.6-12.0); Monocytes % 10.9 % (1.7-12.7); Neutrophils % 72.2 % (38.7-73.9); Platelet Count 195 T/CUMM (130-400); Red Blood Count 3.27 MC/CUMM (3.8-5.5); Red Cell Distribution Width 19.4 % (9.3-17.3); White Blood Count 4.2 T/CUMM (4-12)
[2019-11-29 07:24] LABS: Albumin 2.4 G/DL (3.4-5.0); Bilirubin,Total 0.5 MG/DL (0.2-1.0); Calcium 8.1 MG/DL (8.5-10.1); Total Protein 6.2 G/DL (6.4-8.3)
[2019-11-29] MEDS: busPIRone 10 MG TABLET PO SCH (08:32)
[2019-11-29] MEDS: POTASSIUM CHLORIDE 20 MEQ TABLET PO SCH (08:32)
[2019-11-29] MEDS: MAGNESIUM CHLORIDE 64 MG TABLET PO SCH ×2 (08:32→13:34)
[2019-11-29] MEDS: DOCUSATE SODIUM 100 MG CAPSULE PO SCH (08:32)
[2019-11-29] MEDS ORDERED: PANTOPRAZOLE 40 MG TABLET PO SCH (09:00)
[2019-11-29] MEDS ORDERED: ROSUVASTATIN 20 MG TABLET PO SCH (09:00)
[2019-11-29] MEDS ORDERED: allopurinoL 100 MG TABLET PO SCH (09:00)
[2019-11-29] MEDS ORDERED: LOSARTAN 50 MG TABLET PO SCH (09:00)
[2019-11-29 12:45] VITALS: BP 160/109
== END 2019-11-29 02:15 | disposition home or self-care (01) ==
LOC: N.2W
PROVIDERS: ADMIT Family Medicine; ATTEND Family Medicine

== ENCOUNTER 2020-02-24 01:32 | Observation (INO) ==
[2020-02-24] MEDS ORDERED: SODIUM CHLORIDE 0.9% 1,000 ML IV STA (01:47)
[2020-02-24 02:47] LABS: Basophils % 0.9 % (0.0-0.8); Eosinophils % 0.9 % (0.00-10.9); Immature Granulocytes % 1.4 %; Immature Granulocytes Absolute 0.06 #; Lymphocytes # 0.7 10*3/uL (1.4-4.0); Lymphocytes % 16.8 % (21.3-54.2); Mean Corpuscular HGB Conc 30.3 GM/DL (32-36); Mean Corpuscular Volume 112.9 FL (87-102); Mean Platelet Volume 10.4 FL (9.6-12.0); Monocytes % 8.1 % (1.7-12.7); NRBC # 0.02 10*3/uL; Neutrophils % 71.9 % (38.7-73.9); Platelet Count 116 T/CUMM (130-400); Red Blood Count 1.78 MC/CUMM (3.8-5.5); Red Cell Distribution Width 18.2 % (9.3-17.3); White Blood Count 4.2 T/CUMM (4-12)
[2020-02-24 02:57] LABS: Albumin 2.8 G/DL (3.4-5.0); Bilirubin,Total 0.4 MG/DL (0.2-1.0); Osmolality,Calculated 268.2 MOS/KG (273-304); Total Protein 6.2 G/DL (6.4-8.3)
[2020-02-24 02:58] LABS: Hemoglobin 6.1 GM/DL (12.0-16.0)
[2020-02-24 02:59] LABS: Hematocrit 20.1 VOL% (35.7-47.0)
[2020-02-24] MEDS ORDERED: POTASSIUM CHLORIDE 20 MEQ TABLET PO STA (03:06)
[2020-02-24] MEDS ORDERED: ACETAMINOPHEN 325 MG TABLET PO PRN (03:07)
[2020-02-24] MEDS ORDERED: SODIUM CHLORIDE 0.9% 1,000 ML IV PRN (03:07)
[2020-02-24] MEDS ORDERED: diphenhydrAMINE CAP 25 MG CAPSULE PO PRN (03:07)
[2020-02-24] MEDS ORDERED: ONDANSETRON 4 MG/2 ML VIAL IV PRN (03:13)
[2020-02-24 03:58] LABS: Apearance,Urine CLOUDY (Clear); Bilirubin,Urine Negative (Negative); Blood, Urine Negative (Negative); Glucose,Urine (UA) Negative (Negative); Hyaline Casts,Urine 4 /LPF (0-3); Ketones,Urine Negative (Negative); Nitrite,Urine Negative (Negative); Protein,Urine 30 MG/DL; Squamous Epithelial Cell,Urine Occasional /HPF (0-10); Urine Color Yellow (Yellow); Urine Specific Gravity 1.011 (1.001-1.035); Urine Urobilinogen < 2.0 EU/DL (0.2-1.0); WBC,Urine 46 /HPF (0-6)
[2020-02-24] MEDS ORDERED: busPIRone 10 MG TABLET PO PRN (09:45)
[2020-02-24] MEDS: cefTRIAXone 1,000 MG in SYRINGE 1 EACH IV SCH (09:47)
[2020-02-24] MEDS: MAGNESIUM CHLORIDE 64 MG TABLET PO SCH ×3 (12:51→22:21)
[2020-02-24] MEDS: ACETAMINOPHEN 500 MG TABLET PO PRN ×2 (12:52→22:21)
[2020-02-24] MEDS: POTASSIUM CHLORIDE 20 MEQ TABLET PO SCH (17:53)
[2020-02-24 20:30] LABS: Hematocrit 27.9 VOL% (35.7-47.0)
[2020-02-25 06:29] LABS: Basophils # 0.1 10*3/uL (0.0-0.2); Basophils % 1.8 % (0.0-0.8); Eosinophils # 0.1 10*3/uL (0.0-0.87); Eosinophils % 1.8 % (0.00-10.9); Hematocrit 30.3 VOL% (35.7-47.0); Hemoglobin 9.6 GM/DL (12.0-16.0); Immature Granulocytes % 1.8 %; Immature Granulocytes Absolute 0.08 #; Lymphocytes # 0.7 10*3/uL (1.4-4.0); Lymphocytes % 14.9 % (21.3-54.2); Mean Corpuscular HGB Conc 31.7 GM/DL (32-36); Mean Corpuscular Volume 103.8 FL (87-102); Mean Platelet Volume 10.7 FL (9.6-12.0); Monocytes % 8.6 % (1.7-12.7); NRBC # 0.03 10*3/uL; Neutrophils % 71.1 % (38.7-73.9); Platelet Count 104 T/CUMM (130-400); Red Blood Count 2.92 MC/CUMM (3.8-5.5); Red Cell Distribution Width 21.6 % (9.3-17.3); White Blood Count 4.4 T/CUMM (4-12)
[2020-02-25] MEDS ORDERED: LEVOTHYROXINE 200 MCG TABLET PO SCH (06:30)
[2020-02-25] MEDS ORDERED: LEVOTHYROXINE 50 MCG TABLET PO SCH (06:30)
[2020-02-25 07:21] LABS: Hypochromasia 1+; Ovalocytes Slight; Platelet Estimate Decreased
[2020-02-25] MEDS: LOSARTAN 50 MG TABLET PO SCH ×2 (08:59→09:12)
[2020-02-25] MEDS: POTASSIUM CHLORIDE 20 MEQ TABLET PO SCH (08:59)
[2020-02-25] MEDS ORDERED: ROSUVASTATIN 20 MG TABLET PO SCH (09:00)
[2020-02-25] MEDS ORDERED: METOPROLOL SUCCINATE XL 25 MG TABLET PO SCH (09:00)
[2020-02-25] MEDS ORDERED: CYANOCOBALAMIN 500 MCG TABLET PO SCH (09:00)
[2020-02-25] MEDS: MAGNESIUM CHLORIDE 64 MG TABLET PO SCH ×2 (09:00→13:40)
[2020-02-25] MEDS: cefTRIAXone 1,000 MG in SYRINGE 1 EACH IV SCH (09:00)
[2020-02-25] MEDS ORDERED: allopurinoL 100 MG TABLET PO SCH (09:00)
[2020-02-25 12:44] VITALS: BP 119/83
== END 2020-02-25 15:40 | disposition home or self-care (01) ==
LOC: EDBD → EDUNIT# → N.ED 01:32 → N.EDINP 01:32 → N.3E 06:11
PROVIDERS: ADMIT Family Medicine; ATTEND Family Medicine

== ENCOUNTER 2020-11-17 23:44 | Inpatient (IN) ==
[2020-11-18] MEDS ORDERED: SODIUM CHLORIDE 0.9% 1,000 ML IV STA (00:13)
[2020-11-18 00:46] LABS: Basophils # 0.1 10*3/uL (0.0-0.2); Basophils % 0.9 % (0.0-0.8); Eosinophils % 0.2 % (0.00-10.9); Hematocrit 20.3 VOL% (35.7-47.0); Hemoglobin 6.6 GM/DL (12.0-16.0); Immature Granulocytes % 3.5 %; Immature Granulocytes Absolute 0.19 #; Lymphocytes # 0.4 10*3/uL (1.4-4.0); Lymphocytes % 8.2 % (21.3-54.2); Mean Corpuscular HGB Conc 32.5 GM/DL (32-36); Mean Corpuscular Volume 105.2 FL (87-102); Mean Platelet Volume 11.2 FL (9.6-12.0); Monocytes % 16.2 % (1.7-12.7); NRBC # 0.07 10*3/uL; Platelet Count 198 T/CUMM (130-400); Red Cell Distribution Width 20.9 % (9.3-17.3); White Blood Count 5.4 T/CUMM (4-12)
[2020-11-18 00:48] LABS: Red Blood Count 1.93 MC/CUMM (3.8-5.5)
[2020-11-18 00:50] LABS: Albumin 2.5 G/DL (3.4-5.0); Calcium 8.5 MG/DL (8.5-10.1); Osmolality,Calculated 267.5 MOS/KG (273-304); Potassium 2.9 MMOL/L (3.5-5.1); Total Protein 5.9 G/DL (6.4-8.3)
[2020-11-18] MEDS ORDERED: PANTOPRAZOLE INJ 80 MG in SODIUM CHLORIDE 0.9% 100 ML IV ONE (01:07)
[2020-11-18] MEDS ORDERED: ONDANSETRON 4 MG/2 ML VIAL IV PRN (01:07)
[2020-11-18] MEDS ORDERED: PANTOPRAZOLE 40 MG VIAL IV ONE (01:13)
[2020-11-18] MEDS ORDERED: PANTOPRAZOLE INJ 200 MG in SODIUM CHLORIDE 0.9% 250 ML IV SCH (02:00)
[2020-11-18 02:08] LABS: Hypochromasia 2+; Lymphocytes 14 % (20-55); Microcytosis 1+; Nucleated Red Blood Cells 4 (0-5); Ovalocytes Slight; Platelet Estimate Adequate; Segmented Neutrophils 71 % (50-85); Total Cells Counted 100
[2020-11-18 03:58] LABS: Basophils % 0.7 % (0.0-0.8); Eosinophils % 0.4 % (0.00-10.9); Hematocrit 18.5 VOL% (35.7-47.0); Immature Granulocytes % 3.9 %; Immature Granulocytes Absolute 0.18 #; Lymphocytes # 0.5 10*3/uL (1.4-4.0); Mean Corpuscular HGB Conc 31.9 GM/DL (32-36); Mean Corpuscular Volume 104.5 FL (87-102); Mean Platelet Volume 10.4 FL (9.6-12.0); Monocytes % 15.7 % (1.7-12.7); NRBC # 0.06 10*3/uL; Neutrophils % 69.3 % (38.7-73.9); Platelet Count 170 T/CUMM (130-400); Red Blood Count 1.77 MC/CUMM (3.8-5.5); Red Cell Distribution Width 20.7 % (9.3-17.3); White Blood Count 4.6 T/CUMM (4-12)
[2020-11-18 04:06] LABS: Hemoglobin 5.9 GM/DL (12.0-16.0)
[2020-11-18] MEDS ORDERED: SODIUM CHLORIDE 0.9% 1,000 ML IV PRN (04:13)
[2020-11-18 04:16] LABS: Calcium 7.9 MG/DL (8.5-10.1); Osmolality,Calculated 278.7 MOS/KG (273-304); Potassium 2.6 MMOL/L (3.5-5.1)
[2020-11-18 04:21] LABS: Lymphocytes 10 % (20-55); Segmented Neutrophils 81 % (50-85); Total Cells Counted 100
[2020-11-18 04:22] LABS: Hypochromasia 2+; Microcytosis 1+; Platelet Estimate Normal
[2020-11-18 04:23] LABS: Stomatocytes Few
[2020-11-18 14:14] LABS: Hemoglobin 10.9 GM/DL (12.0-16.0)
[2020-11-18] MEDS: SODIUM CHLORIDE 0.9% 1,000 ML IV SCH ×2 (15:15)
[2020-11-18] MEDS ORDERED: busPIRone 10 MG TABLET PO PRN (16:07)
[2020-11-18] MEDS ORDERED: POTASSIUM CHLORIDE RIDER 10 MEQ in PREMIX 1 EACH IV PRN (17:03)
[2020-11-18] MEDS ORDERED: POTASSIUM CHLORIDE INJ 50 MEQ in SODIUM CHLORIDE 0.9% 500 ML IV ONE (17:30)
[2020-11-18] MEDS ORDERED: MAGNESIUM CITRATE 300 ML BOTTLE PO ONE (18:00)
[2020-11-18 19:14] LABS: Bilirubin,Urine Negative (Negative); Blood, Urine Negative (Negative); Glucose,Urine (UA) Negative (Negative); Ketones,Urine Negative (Negative); Nitrite,Urine Negative (Negative); Protein,Urine Negative; Urine Appearance Slightly Hazy (Clear); Urine Color Yellow (Yellow); Urine Specific Gravity 1.013 (1.001-1.035)
[2020-11-18] MEDS: PANTOPRAZOLE 40 MG VIAL IV SCH (21:24)
[2020-11-19] MEDS: SODIUM CHLORIDE 0.9% 1,000 ML IV SCH ×2 (03:02→16:59)
[2020-11-19 05:30] LABS: Basophils % 0.8 % (0.0-0.8); Eosinophils % 0.8 % (0.00-10.9); Hematocrit 28.5 VOL% (35.7-47.0); Hemoglobin 9.4 GM/DL (12.0-16.0); Immature Granulocytes % 2.4 %; Immature Granulocytes Absolute 0.09 #; Lymphocytes # 0.4 10*3/uL (1.4-4.0); Lymphocytes % 10.5 % (21.3-54.2); Mean Corpuscular Volume 96.3 FL (87-102); Mean Platelet Volume 11.2 FL (9.6-12.0); Monocytes % 17.3 % (1.7-12.7); NRBC # 0.02 10*3/uL; Neutrophils % 68.2 % (38.7-73.9); Platelet Count 174 T/CUMM (130-400); Red Blood Count 2.96 MC/CUMM (3.8-5.5); Red Cell Distribution Width 20.6 % (9.3-17.3); White Blood Count 3.7 T/CUMM (4-12)
[2020-11-19 05:57] LABS: Eosinophils 1 % (0-10); Hypochromasia 1+; Lymphocytes 8 % (20-55); Microcytosis 1+; Platelet Estimate Adequate; Segmented Neutrophils 75 % (50-85); Total Cells Counted 100
[2020-11-19 06:00] LABS: Calcium 7.9 MG/DL (8.5-10.1); Osmolality,Calculated 281.1 MOS/KG (273-304); Potassium 3.3 MMOL/L (3.5-5.1); Thyroid Stimulating Hormone 41.2 uIU/ml (0.358-3.74)
[2020-11-19] MEDS ORDERED: LEVOTHYROXINE 200 MCG TABLET PO SCH (06:30)
[2020-11-19] MEDS ORDERED: LEVOTHYROXINE 75 MCG TABLET PO SCH (06:30)
[2020-11-19] MEDS: PANTOPRAZOLE 40 MG VIAL IV SCH (08:16)
[2020-11-19] MEDS ORDERED: ROSUVASTATIN 40 MG PO SCH (09:00)
[2020-11-19] MEDS: POTASSIUM CHLORIDE 20 MEQ TABLET PO SCH (10:02)
[2020-11-19 15:58] VITALS: BP 121/87
== END 2020-11-19 16:58 | disposition home or self-care (01) | DRG 378 ==
LOC: EDBD → EDUNIT# → N.EDINP 23:44 → N.ED 23:44 → N.EDINP 11-18 13:25 → N.5E 11-18 13:44
PROVIDERS: ADMIT Family Medicine; ATTEND Family Medicine

== ENCOUNTER 2020-12-31 14:56 | Observation (INO) ==
[2020-12-31] MEDS ORDERED: ACETAMINOPHEN 325 MG TABLET PO PRN ×2 (15:55→19:43)
[2020-12-31] MEDS ORDERED: ONDANSETRON 4 MG/2 ML VIAL IV PRN ×3 (15:55→19:43)
[2020-12-31] MEDS ORDERED: hydrALAZINE 20 MG/1 ML VIAL IV PRN ×3 (15:59→19:43)
[2020-12-31] MEDS ORDERED: SODIUM CHLORIDE 0.9% 1,000 ML IV PRN (16:48)
[2020-12-31 17:42] LABS: Basophils # 0.1 10*3/uL (0.0-0.2); Basophils % 2.3 % (0.0-0.8); Eosinophils % 0.8 % (0.00-10.9); Hematocrit 22.5 VOL% (35.7-47.0); Hemoglobin 7.1 GM/DL (12.0-16.0); Immature Granulocytes % 0.5 %; Immature Granulocytes Absolute 0.02 #; Lymphocytes # 0.6 10*3/uL (1.4-4.0); Lymphocytes % 14.6 % (21.3-54.2); Mean Corpuscular HGB Conc 31.6 GM/DL (32-36); Mean Corpuscular Volume 113.1 FL (87-102); Mean Platelet Volume 9.5 FL (9.6-12.0); Monocytes % 12.4 % (1.7-12.7); Neutrophils % 69.4 % (38.7-73.9); Platelet Count 208 T/CUMM (130-400); Red Blood Count 1.99 MC/CUMM (3.8-5.5); Red Cell Distribution Width 21.2 % (9.3-17.3)
[2020-12-31] MEDS ORDERED: MAGNESIUM SULF RIDER 4 GM in PREMIX 1 EACH IV PRN (17:57)
[2020-12-31] MEDS ORDERED: POTASSIUM CHLORIDE RIDER 10 MEQ in PREMIX 1 EACH IV PRN (17:57)
[2020-12-31] MEDS ORDERED: MAGNESIUM SULF RIDER 2 GM in PREMIX 1 EACH IV PRN (17:57)
[2020-12-31 18:05] LABS: Anisocytosis 1+; Lymphocytes 13 % (20-55); Macrocytosis 1+; Segmented Neutrophils 79 % (50-85); Total Cells Counted 100
[2020-12-31 18:06] LABS: Atypical Lymphocytes Few; Platelet Estimate Normal; Polychromasia Slight
[2020-12-31] MEDS ORDERED: LOSARTAN 25 MG TABLET PO SCH ×2 (18:12→21:00)
[2020-12-31] MEDS ORDERED: PANTOPRAZOLE 40 MG TABLET PO SCH (21:00)
[2020-12-31] MEDS ORDERED: MAGNESIUM OXIDE 400 MG TABLET PO SCH (21:00)
[2020-12-31] MEDS: MAGNESIUM OXIDE 400 MG TABLET PO SCH (21:56)
[2020-12-31] MEDS: DOCUSATE SODIUM 100 MG CAPSULE PO SCH (21:59)
[2020-12-31] MEDS: PANTOPRAZOLE 40 MG TABLET PO SCH ×2 (21:59→22:00)
[2021-01-01] MEDS ORDERED: LEVOTHYROXINE 150 MCG TABLET PO SCH ×2 (06:30)
[2021-01-01] MEDS ORDERED: LEVOTHYROXINE 100 MCG TABLET PO SCH (07:00)
[2021-01-01] MEDS ORDERED: LEVOTHYROXINE 200 MCG TABLET PO SCH (07:00)
[2021-01-01 07:07] LABS: Basophils # 0.1 10*3/uL (0.0-0.2); Basophils % 2.8 % (0.0-0.8); Eosinophils % 1.3 % (0.00-10.9); Hematocrit 33.3 VOL% (35.7-47.0); Immature Granulocytes % 0.6 %; Immature Granulocytes Absolute 0.02 #; Lymphocytes # 0.4 10*3/uL (1.4-4.0); Lymphocytes % 12.9 % (21.3-54.2); Mean Corpuscular HGB Conc 32.7 GM/DL (32-36); Mean Corpuscular Volume 96.5 FL (87-102); Mean Platelet Volume 9.9 FL (9.6-12.0); Monocytes % 13.8 % (1.7-12.7); NRBC # 0.02 10*3/uL; Neutrophils % 68.6 % (38.7-73.9); Red Cell Distribution Width 24.7 % (9.3-17.3); White Blood Count 3.2 T/CUMM (4-12)
[2021-01-01 07:08] LABS: Red Blood Count 3.45 MC/CUMM (3.8-5.5)
[2021-01-01 07:09] LABS: Hemoglobin 10.9 GM/DL (12.0-16.0); Platelet Count 159 T/CUMM (130-400)
[2021-01-01 07:22] LABS: Eosinophils 3 % (0-10); Hypochromasia 1+; Lymphocytes 12 % (20-55); Microcytosis 1+; Nucleated Red Blood Cells 1 (0-5); Platelet Estimate Adequate; Segmented Neutrophils 75 % (50-85); Total Cells Counted 100
[2021-01-01 07:24] LABS: Albumin 2.8 G/DL (3.4-5.0); Bilirubin,Total 1.2 MG/DL (0.2-1.0); Calcium 8.4 MG/DL (8.5-10.1); Osmolality,Calculated 276.7 MOS/KG (273-304); Potassium 3.7 MMOL/L (3.5-5.1); Total Protein 6.2 G/DL (5.0-7.5)
[2021-01-01] MEDS ORDERED: POTASSIUM CHLORIDE 40 MEQ/15 ML PO SCH (09:00)
[2021-01-01] MEDS ORDERED: PANTOPRAZOLE 40 MG TABLET PO SCH (09:00)
[2021-01-01] MEDS ORDERED: POTASSIUM CHLORIDE 20 MEQ/15 ML UDCUP PO SCH (09:00)
[2021-01-01] MEDS: DOCUSATE SODIUM 100 MG CAPSULE PO SCH (09:29)
[2021-01-01] MEDS: MAGNESIUM OXIDE 400 MG TABLET PO SCH (09:29)
[2021-01-01] MEDS: PANTOPRAZOLE 40 MG TABLET PO SCH ×2 (09:30→09:52)
[2021-01-01 12:22] VITALS: BP 162/98
[2021-01-02] MEDS ORDERED: LEVOTHYROXINE 150 MCG TABLET PO SCH (06:30)
== END 2021-01-01 14:20 | disposition home or self-care (01) ==
LOC: N.MMA.FM 14:56 → N.5E 14:56
PROVIDERS: ADMIT Family Medicine; ATTEND Family Medicine

== ENCOUNTER 2021-02-04 13:35 | Inpatient (IN) ==
[2021-02-04] MEDS ORDERED: SODIUM CHLORIDE 0.9% 1,000 ML IV PRN (14:00)
[2021-02-04 14:58] LABS: Basophils % 1.3 % (0.0-0.8); Eosinophils % 0.3 % (0.00-10.9); Hematocrit 22.8 VOL% (35.7-47.0); Hemoglobin 7.1 GM/DL (12.0-16.0); Immature Granulocytes % 0.7 %; Immature Granulocytes Absolute 0.02 #; Lymphocytes # 0.3 10*3/uL (1.4-4.0); Lymphocytes % 10.1 % (21.3-54.2); Mean Corpuscular HGB Conc 31.1 GM/DL (32-36); Mean Corpuscular Volume 109.1 FL (87-102); Mean Platelet Volume 10.9 FL (9.6-12.0); Monocytes % 8.7 % (1.7-12.7); NRBC # 0.02 10*3/uL; Neutrophils % 78.9 % (38.7-73.9); Platelet Count 107 T/CUMM (130-400); Red Blood Count 2.09 MC/CUMM (3.8-5.5)
[2021-02-04 15:07] LABS: INR 1.1; PT Patient Result 11.6 SECS (9.8-11.9)
[2021-02-04 15:14] LABS: Albumin 3.5 G/DL (3.4-5.0); Bilirubin,Total 0.9 MG/DL (0.2-1.0); Calcium 8.5 MG/DL (8.5-10.1); Osmolality,Calculated 266.1 MOS/KG (273-304); Potassium 3.4 MMOL/L (3.5-5.1); Total Protein 6.7 G/DL (6.4-8.2)
[2021-02-04] MEDS ORDERED: diphenhydrAMINE CAP 25 MG CAPSULE PO PRN (20:23)
[2021-02-04] MEDS ORDERED: diphenhydrAMINE 50 MG/1 ML VIAL IV ONE (20:23)
[2021-02-04] MEDS: PANTOPRAZOLE 40 MG TABLET PO SCH (20:50)
[2021-02-04] MEDS: ROSUVASTATIN 20 MG TABLET PO SCH (20:50)
[2021-02-05 05:39] LABS: Basophils % 1.5 % (0.0-0.8); Eosinophils % 1.1 % (0.00-10.9); Hematocrit 26.7 VOL% (35.7-47.0); Hemoglobin 8.9 GM/DL (12.0-16.0); Immature Granulocytes % 0.7 %; Immature Granulocytes Absolute 0.02 #; Lymphocytes # 0.3 10*3/uL (1.4-4.0); Lymphocytes % 12.6 % (21.3-54.2); Mean Corpuscular HGB Conc 33.3 GM/DL (32-36); Mean Corpuscular Volume 94.7 FL (87-102); Mean Platelet Volume 10.6 FL (9.6-12.0); Monocytes % 11.5 % (1.7-12.7); Neutrophils % 72.6 % (38.7-73.9); Platelet Count 80 T/CUMM (130-400); Red Blood Count 2.82 MC/CUMM (3.8-5.5); Red Cell Distribution Width 23.3 % (9.3-17.3); White Blood Count 2.7 T/CUMM (4-12)
[2021-02-05 06:06] LABS: Blood Urea Nitrogen 9 MG/DL (7-18); Calcium 7.9 MG/DL (8.5-10.1); Carbon Dioxide 21 MMOL/L (21-32); Estimated Glom Filtration Rate 75 ML/MIN; Glucose 80 MG/DL (74-106); Potassium 2.8 MMOL/L (3.5-5.1); Sodium 136 MMOL/L (136-145)
[2021-02-05] MEDS: FOLIC ACID 1 MG TABLET PO SCH (09:38)
[2021-02-05] MEDS: ZINC GLUCONATE 50 MG TABLET PO SCH (09:38)
[2021-02-05] MEDS: LEVOTHYROXINE 200 MCG TABLET PO SCH (09:38)
[2021-02-05] MEDS: LOSARTAN 50 MG TABLET PO SCH (09:38)
[2021-02-05] MEDS: LEVOTHYROXINE 75 MCG TABLET PO SCH (09:39)
[2021-02-05] MEDS: PANTOPRAZOLE 40 MG TABLET PO SCH ×2 (09:39→20:02)
[2021-02-05] MEDS ORDERED: MAGNESIUM SULF RIDER 2 GM in PREMIX 1 EACH IV PRN (10:03)
[2021-02-05] MEDS ORDERED: MAGNESIUM SULF RIDER 4 GM in PREMIX 1 EACH IV PRN (10:03)
[2021-02-05] MEDS ORDERED: POTASSIUM CHLORIDE RIDER 10 MEQ in PREMIX 1 EACH IV PRN (10:33)
[2021-02-05] MEDS ORDERED: POTASSIUM CHLORIDE INJ 50 MEQ, MAGNESIUM SULF INJ 4 GM in SODIUM CHLORIDE 0.9% 500 ML IV ONE (12:00)
[2021-02-05] MEDS: ROSUVASTATIN 20 MG TABLET PO SCH (20:02)
[2021-02-06] MEDS: LEVOTHYROXINE 200 MCG TABLET PO SCH (06:24)
[2021-02-06] MEDS: LEVOTHYROXINE 75 MCG TABLET PO SCH (06:24)
[2021-02-06 06:38] LABS: Calcium 8.5 MG/DL (8.5-10.1); Osmolality,Calculated 271.7 MOS/KG (273-304)
[2021-02-06] MEDS ORDERED: LACTATED RINGERS 1,000 ML IV SCH (07:30)
[2021-02-06 11:34] LABS: Basophils % 1.2 % (0.0-0.8); Eosinophils % 0.8 % (0.00-10.9); Hematocrit 29.5 VOL% (35.7-47.0); Hemoglobin 9.8 GM/DL (12.0-16.0); Immature Granulocytes % 0.8 %; Immature Granulocytes Absolute 0.02 #; Lymphocytes # 0.4 10*3/uL (1.4-4.0); Lymphocytes % 13.8 % (21.3-54.2); Mean Corpuscular HGB Conc 33.2 GM/DL (32-36); Mean Platelet Volume 11.7 FL (9.6-12.0); Monocytes % 12.7 % (1.7-12.7); Neutrophils % 70.7 % (38.7-73.9); Platelet Count 75 T/CUMM (130-400); Red Blood Count 3.04 MC/CUMM (3.8-5.5); Red Cell Distribution Width 24.2 % (9.3-17.3); White Blood Count 2.6 T/CUMM (4-12)
[2021-02-06] MEDS: POTASSIUM CHLORIDE 20 MEQ TABLET PO PRN ×2 (11:58→17:27)
[2021-02-06] MEDS: FOLIC ACID 1 MG TABLET PO SCH (11:58)
[2021-02-06] MEDS: ZINC GLUCONATE 50 MG TABLET PO SCH (11:58)
[2021-02-06] MEDS: PANTOPRAZOLE 40 MG TABLET PO SCH ×2 (11:58→20:29)
[2021-02-06] MEDS: LOSARTAN 50 MG TABLET PO SCH (11:59)
[2021-02-06 12:38] LABS: Eosinophils 2 % (0-10); Lymphocytes 8 % (20-55); Segmented Neutrophils 76 % (50-85); Total Cells Counted 100
[2021-02-06 12:40] LABS: Anisocytosis 1+; Basophilic Stippling Slight
[2021-02-06 12:41] LABS: Platelet Estimate Decreased
[2021-02-06 12:51] LABS: Atypical Lymphocytes Few
[2021-02-06] MEDS ORDERED: LIDOCAINE 2% 5 ML VIAL ONE (12:55)
[2021-02-06] MEDS ORDERED: propofoL 200 MG/20 ML VIAL IV ONE ×2 (12:55→13:42)
[2021-02-06] MEDS ORDERED: PHENYLEPHRINE 1 MG/10 ML SYRINGE IV ONE (13:42)
[2021-02-06] MEDS ORDERED: LABETALOL 20 MG/4 ML SYRINGE IV ONE (13:42)
[2021-02-06] MEDS ORDERED: ACETAMINOPHEN 500 MG TABLET PO PRN (14:00)
[2021-02-06] MEDS: ROSUVASTATIN 20 MG TABLET PO SCH (20:29)
[2021-02-07 05:35] LABS: Basophils % 0.6 % (0.0-0.8); Eosinophils % 0.6 % (0.00-10.9); Hematocrit 26.8 VOL% (35.7-47.0); Hemoglobin 8.8 GM/DL (12.0-16.0); Immature Granulocytes % 0.6 %; Immature Granulocytes Absolute 0.02 #; Lymphocytes # 0.3 10*3/uL (1.4-4.0); Lymphocytes % 8.6 % (21.3-54.2); Mean Corpuscular HGB Conc 32.8 GM/DL (32-36); Mean Corpuscular Volume 98.2 FL (87-102); Mean Platelet Volume 12.5 FL (9.6-12.0); Monocytes % 9.2 % (1.7-12.7); Neutrophils % 80.4 % (38.7-73.9); Red Blood Count 2.73 MC/CUMM (3.8-5.5); Red Cell Distribution Width 23.9 % (9.3-17.3)
[2021-02-07 05:44] LABS: Platelet Count 64 T/CUMM (130-400); White Blood Count 3.5 T/CUMM (4-12)
[2021-02-07 05:55] LABS: Calcium 8.1 MG/DL (8.5-10.1); Osmolality,Calculated 271.7 MOS/KG (273-304); Potassium 3.3 MMOL/L (3.5-5.1)
[2021-02-07 05:56] LABS: Lymphocytes 11 % (20-55); Segmented Neutrophils 81 % (50-85); Total Cells Counted 100
[2021-02-07 05:57] LABS: Hypochromasia 1+; Microcytosis 1+; Platelet Estimate Decreased
[2021-02-07] MEDS: LEVOTHYROXINE 75 MCG TABLET PO SCH (06:21)
[2021-02-07] MEDS: LEVOTHYROXINE 200 MCG TABLET PO SCH (06:21)
[2021-02-07] MEDS ORDERED: SODIUM CHLORIDE 0.9% 1,000 ML IV PRN (06:41)
[2021-02-07] MEDS: LOSARTAN 50 MG TABLET PO SCH ×2 (08:10→08:15)
[2021-02-07] MEDS: ZINC GLUCONATE 50 MG TABLET PO SCH (08:10)
[2021-02-07] MEDS: PANTOPRAZOLE 40 MG TABLET PO SCH (08:10)
[2021-02-07] MEDS: FOLIC ACID 1 MG TABLET PO SCH (08:10)
[2021-02-07 11:47] VITALS: BP 123/72
[2021-02-07 12:32] LABS: Hematocrit 32.3 VOL% (35.7-47.0); Hemoglobin 10.5 GM/DL (12.0-16.0)
== END 2021-02-07 13:06 | disposition home health service (06) | DRG 378 ==
LOC: EDUNIT# → N.ED 13:35 → N.EDINP 13:35 → N.5E 16:34
PROVIDERS: ADMIT Family Medicine; ATTEND Family Medicine

== ENCOUNTER 2021-05-07 18:58 | Inpatient (IN) ==
[2021-05-07] MEDS ORDERED: ONDANSETRON 4 MG/2 ML VIAL IV STA (20:00)
[2021-05-07] MEDS ORDERED: SODIUM CHLORIDE 0.9% 500 ML IV STA (20:00)
[2021-05-07] MEDS ORDERED: PANTOPRAZOLE 40 MG VIAL IV STA (20:00)
[2021-05-07 20:52] LABS: Basophils % 0.3 % (0.0-0.8); Eosinophils # 0.3 10*3/uL (0.0-0.87); Eosinophils % 2.8 % (0.00-10.9); Hematocrit 21.3 VOL% (35.7-47.0); Immature Granulocytes % 0.8 %; Immature Granulocytes Absolute 0.08 #; Lymphocytes # 1.2 10*3/uL (1.4-4.0); Lymphocytes % 11.6 % (21.3-54.2); Mean Corpuscular HGB Conc 32.4 GM/DL (32-36); Mean Corpuscular Volume 108.1 FL (87-102); Mean Platelet Volume 11.8 FL (9.6-12.0); Monocytes % 10.7 % (1.7-12.7); Neutrophils % 73.8 % (38.7-73.9); Platelet Count 192 T/CUMM (130-400); Red Blood Count 1.97 MC/CUMM (3.8-5.5)
[2021-05-07 20:54] LABS: Hemoglobin 6.9 GM/DL (12.0-16.0)
[2021-05-07 21:03] LABS: INR 1.4; PT Patient Result 14.9 SECS (10.5-12.0)
[2021-05-07 21:20] LABS: Albumin 1.9 G/DL (3.4-5.0); Bilirubin,Total 1.9 MG/DL (0.20-1.00); Calcium 7.3 MG/DL (8.5-10.1); Osmolality,Calculated 278.4 MOS/KG (273-304); Potassium 3.1 MMOL/L (3.5-5.1)
[2021-05-07] MEDS ORDERED: POTASSIUM CHLORIDE 20 MEQ TABLET PO STA (21:45)
[2021-05-07] MEDS ORDERED: MAGNESIUM SULF RIDER 2 GM/50 ML PREMIX IV STA (21:45)
[2021-05-08] MEDS ORDERED: ACETAMINOPHEN 500 MG TABLET PO PRN (00:06)
[2021-05-08] MEDS ORDERED: SODIUM CHLORIDE 0.9% 1,000 ML IV PRN (00:06)
[2021-05-08] MEDS ORDERED: predniSONE 20 MG TABLET PO PRN (00:06)
[2021-05-08] MEDS ORDERED: DICYCLOMINE 20 MG TABLET PO PRN (00:06)
[2021-05-08] MEDS ORDERED: ONDANSETRON 4 MG/2 ML VIAL IV PRN (00:06)
[2021-05-08] MEDS ORDERED: ONDANSETRON ODT 4 MG TABLET PO PRN (00:17)
[2021-05-08] MEDS: metroNIDAZOLE INJ 500 MG/100 ML PREMIX IV SCH ×3 (00:58→16:30)
[2021-05-08 01:07] LABS: Basophils # 0.1 10*3/uL (0.0-0.2); Basophils % 0.6 % (0.0-0.8); Eosinophils % 0.1 % (0.00-10.9); Hematocrit 20.4 VOL% (35.7-47.0); Hemoglobin 6.8 GM/DL (12.0-16.0); Immature Granulocytes Absolute 0.08 #; Lymphocytes # 0.9 10*3/uL (1.4-4.0); Lymphocytes % 11.2 % (21.3-54.2); Mean Corpuscular HGB Conc 33.3 GM/DL (32-36); Mean Corpuscular Volume 104.1 FL (87-102); Mean Platelet Volume 11.2 FL (9.6-12.0); Monocytes % 9.1 % (1.7-12.7); Platelet Count 182 T/CUMM (130-400); Red Blood Count 1.96 MC/CUMM (3.8-5.5); White Blood Count 8.1 T/CUMM (4-12)
[2021-05-08 01:24] LABS: Albumin 1.8 G/DL (3.4-5.0); Bilirubin,Total 2.5 MG/DL (0.20-1.00); Calcium 7.3 MG/DL (8.5-10.1); Osmolality,Calculated 273.7 MOS/KG (273-304); Potassium 3.4 MMOL/L (3.5-5.1); Total Protein 4.9 G/DL (6.4-8.2)
[2021-05-08] MEDS: CIPROFLOXACIN INJ 400 MG/200 ML PREMIX IV SCH ×2 (02:03→21:06)
[2021-05-08 05:46] LABS: Basophils % 0.5 % (0.0-0.8); Eosinophils % 0.1 % (0.00-10.9); Hematocrit 20.5 VOL% (35.7-47.0); Hemoglobin 6.7 GM/DL (12.0-16.0); Immature Granulocytes % 0.7 %; Immature Granulocytes Absolute 0.06 #; Lymphocytes # 0.7 10*3/uL (1.4-4.0); Lymphocytes % 8.4 % (21.3-54.2); Mean Corpuscular HGB Conc 32.7 GM/DL (32-36); Mean Corpuscular Volume 105.7 FL (87-102); Mean Platelet Volume 11.7 FL (9.6-12.0); Monocytes % 9.2 % (1.7-12.7); Neutrophils % 81.1 % (38.7-73.9); Platelet Count 181 T/CUMM (130-400); Red Blood Count 1.94 MC/CUMM (3.8-5.5); Red Cell Distribution Width 20.6 % (9.3-17.3); White Blood Count 8.2 T/CUMM (4-12)
[2021-05-08] MEDS: HYDROmorphone 2 MG/1 ML VIAL IV PRN ×2 (05:58→09:17)
[2021-05-08 06:11] LABS: Hypochromasia 1+; Lymphocytes 4 % (20-55); Microcytosis 1+; Platelet Estimate Adequate; Segmented Neutrophils 92 % (50-85); Total Cells Counted 100
[2021-05-08] MEDS ORDERED: NON-FORMULARY MEDICATION (Esomeprazole Magnesium [Nexium] 40 mg Capsule,Delayed Release(Dr PO SCH (09:00)
[2021-05-08] MEDS ORDERED: PANTOPRAZOLE 40 MG VIAL IV SCH (09:00)
[2021-05-08] MEDS: ZINC GLUCONATE 50 MG TABLET PO SCH (09:13)
[2021-05-08] MEDS: DOCUSATE SODIUM 100 MG CAPSULE PO SCH ×2 (09:13→21:09)
[2021-05-08] MEDS: COLCHICINE 0.6 MG CAPSULE PO SCH ×2 (09:13→21:09)
[2021-05-08] MEDS: POTASSIUM BICARB EFFERVESCENT 20 MEQ TAB.EFF PO SCH (09:13)
[2021-05-08] MEDS: MAGNESIUM CHLORIDE 64 MG TABLET PO SCH (09:13)
[2021-05-08] MEDS: LOSARTAN 50 MG TABLET PO SCH (09:14)
[2021-05-08] MEDS: TAMOXIFEN 10 MG TABLET PO SCH (09:14)
[2021-05-08] MEDS: allopurinoL 100 MG TABLET PO SCH (09:14)
[2021-05-08] MEDS: PANTOPRAZOLE 40 MG TABLET PO SCH ×2 (09:14→21:09)
[2021-05-08] MEDS: CYANOCOBALAMIN 500 MCG TABLET PO SCH (09:14)
[2021-05-08] MEDS: PROMETHAZINE INJ 25 MG in SODIUM CHLORIDE 0.9% 50 ML IV SCH ×4 (11:32→23:45)
[2021-05-08] MEDS: BISACODYL 5 MG TABLET PO SCH ×2 (12:22→21:09)
[2021-05-08] MEDS ORDERED: POLYETHYLENE GLYCOL POWDER 255 GM BOTTLE PO ONE (18:00)
[2021-05-08 19:33] LABS: Hemoglobin 10.6 GM/DL (12.0-16.0)
[2021-05-08] MEDS ORDERED: MAGNESIUM CITRATE 300 ML BOTTLE PO ONE (21:00)
[2021-05-08] MEDS: ROSUVASTATIN 20 MG TABLET PO SCH (21:08)
[2021-05-08] MEDS: CYCLOBENZAPRINE 10 MG TABLET PO SCH (22:25)
[2021-05-09] MEDS: metroNIDAZOLE INJ 500 MG/100 ML PREMIX IV SCH ×4 (01:27→23:16)
[2021-05-09] MEDS ORDERED: BISACODYL 5 MG TABLET PO SCH (05:30)
[2021-05-09] MEDS: BISACODYL 5 MG TABLET PO SCH (05:38)
[2021-05-09] MEDS: SODIUM CHLORIDE 0.9% 1,000 ML IV SCH ×3 (05:45→16:28)
[2021-05-09 06:09] LABS: Basophils % 0.2 % (0.0-0.8); Hematocrit 29.3 VOL% (35.7-47.0); Hemoglobin 9.9 GM/DL (12.0-16.0); Immature Granulocytes % 1.1 %; Lymphocytes # 0.5 10*3/uL (1.4-4.0); Lymphocytes % 4.9 % (21.3-54.2); Mean Corpuscular HGB Conc 33.8 GM/DL (32-36); Mean Corpuscular Volume 96.7 FL (87-102); Mean Platelet Volume 11.9 FL (9.6-12.0); Monocytes % 6.5 % (1.7-12.7); Neutrophils % 87.3 % (38.7-73.9); Platelet Count 130 T/CUMM (130-400); Red Blood Count 3.03 MC/CUMM (3.8-5.5); Red Cell Distribution Width 20.7 % (9.3-17.3); White Blood Count 9.4 T/CUMM (4-12)
[2021-05-09] MEDS: LEVOTHYROXINE 200 MCG TABLET PO SCH (06:13)
[2021-05-09] MEDS ORDERED: LACTATED RINGERS 1,000 ML IV SCH (06:30)
[2021-05-09] MEDS: LEVOTHYROXINE 75 MCG TABLET PO SCH (06:30)
[2021-05-09 06:46] LABS: Albumin 1.6 G/DL (3.4-5.0); Bilirubin,Direct 2.16 MG/DL (0.0-0.20); Bilirubin,Indirect 1.2 MG/DL (0.0-1.0); Bilirubin,Total 3.4 MG/DL (0.20-1.00); Calcium 7.1 MG/DL (8.5-10.1); Free T4 (Free Thyroxine) 0.55 NG/DL (0.76-1.46); Osmolality,Calculated 279.3 MOS/KG (273-304); Potassium 3.3 MMOL/L (3.5-5.1); Thyroid Stimulating Hormone 27.5 uIU/ml (0.358-3.74); Total Protein 4.4 G/DL (6.4-8.2)
[2021-05-09 06:47] LABS: Band Neutrophils 1 % (0-10); Hypochromasia 1+; Lymphocytes 3 % (20-55); Microcytosis 1+; Platelet Estimate Adequate; Segmented Neutrophils 93 % (50-85); Total Cells Counted 100
[2021-05-09] MEDS ORDERED: LIDOCAINE 2% 5 ML VIAL ONE (09:18)
[2021-05-09] MEDS ORDERED: PHENYLEPHRINE 1 MG/10 ML SYRINGE IV ONE ×2 (09:18→10:00)
[2021-05-09] MEDS ORDERED: propofoL 200 MG/20 ML VIAL IV ONE (09:18)
[2021-05-09] MEDS ORDERED: ETOMIDATE 20 MG/10 ML VIAL IV ONE (09:22)
[2021-05-09] MEDS: COLCHICINE 0.6 MG CAPSULE PO SCH ×2 (11:44→20:22)
[2021-05-09] MEDS: DOCUSATE SODIUM 100 MG CAPSULE PO SCH ×2 (11:45→20:22)
[2021-05-09] MEDS: MAGNESIUM CHLORIDE 64 MG TABLET PO SCH (11:45)
[2021-05-09] MEDS: ZINC GLUCONATE 50 MG TABLET PO SCH (11:45)
[2021-05-09] MEDS: TAMOXIFEN 10 MG TABLET PO SCH (11:45)
[2021-05-09] MEDS: LOSARTAN 50 MG TABLET PO SCH (11:45)
[2021-05-09] MEDS: CYANOCOBALAMIN 500 MCG TABLET PO SCH (11:45)
[2021-05-09] MEDS: POTASSIUM BICARB EFFERVESCENT 20 MEQ TAB.EFF PO SCH (11:46)
[2021-05-09] MEDS: PANTOPRAZOLE 40 MG TABLET PO SCH ×2 (11:46→20:22)
[2021-05-09] MEDS: allopurinoL 100 MG TABLET PO SCH (11:46)
[2021-05-09] MEDS: HYDROmorphone 2 MG/1 ML VIAL IV PRN ×2 (11:46→23:11)
[2021-05-09] MEDS: CIPROFLOXACIN INJ 400 MG/200 ML PREMIX IV SCH ×2 (11:47→20:21)
[2021-05-09] MEDS: ACETAMINOPHEN 325 MG TABLET PO PRN (20:22)
[2021-05-09] MEDS: CYCLOBENZAPRINE 10 MG TABLET PO SCH (20:22)
[2021-05-09] MEDS: ROSUVASTATIN 20 MG TABLET PO SCH (20:22)
[2021-05-10] MEDS: SODIUM CHLORIDE 0.9% 1,000 ML IV SCH ×3 (05:03→16:58)
[2021-05-10] MEDS: LEVOTHYROXINE 200 MCG TABLET PO SCH ×2 (05:14→06:24)
[2021-05-10] MEDS: LEVOTHYROXINE 75 MCG TABLET PO SCH ×2 (05:14→06:24)
[2021-05-10] MEDS: ZINC GLUCONATE 50 MG TABLET PO SCH (08:25)
[2021-05-10] MEDS: TAMOXIFEN 10 MG TABLET PO SCH (08:25)
[2021-05-10] MEDS: POTASSIUM BICARB EFFERVESCENT 20 MEQ TAB.EFF PO SCH (08:25)
[2021-05-10] MEDS: MAGNESIUM CHLORIDE 64 MG TABLET PO SCH (08:26)
[2021-05-10] MEDS: DOCUSATE SODIUM 100 MG CAPSULE PO SCH ×2 (08:26→22:59)
[2021-05-10] MEDS: LOSARTAN 50 MG TABLET PO SCH (08:26)
[2021-05-10] MEDS: COLCHICINE 0.6 MG CAPSULE PO SCH ×2 (08:26→22:59)
[2021-05-10] MEDS: allopurinoL 100 MG TABLET PO SCH (08:26)
[2021-05-10] MEDS: PANTOPRAZOLE 40 MG TABLET PO SCH ×2 (08:26→22:59)
[2021-05-10] MEDS: metroNIDAZOLE INJ 500 MG/100 ML PREMIX IV SCH ×2 (08:26→16:58)
[2021-05-10] MEDS: CYANOCOBALAMIN 500 MCG TABLET PO SCH (08:26)
[2021-05-10] MEDS: CIPROFLOXACIN INJ 400 MG/200 ML PREMIX IV SCH ×2 (08:27→22:57)
[2021-05-10 15:34] LABS: Basophils % 0.2 % (0.0-0.8); Hematocrit 28.1 VOL% (35.7-47.0); Hemoglobin 9.4 GM/DL (12.0-16.0); Immature Granulocytes % 10.7 %; Immature Granulocytes Absolute 1.19 #; Lymphocytes # 0.3 10*3/uL (1.4-4.0); Lymphocytes % 2.6 % (21.3-54.2); Mean Corpuscular HGB Conc 33.5 GM/DL (32-36); Mean Corpuscular Volume 99.6 FL (87-102); Monocytes % 5.1 % (1.7-12.7); NRBC # 0.02 10*3/uL; Neutrophils % 81.4 % (38.7-73.9); Platelet Count 89 T/CUMM (130-400); Red Blood Count 2.82 MC/CUMM (3.8-5.5); Red Cell Distribution Width 21.1 % (9.3-17.3); White Blood Count 11.1 T/CUMM (4-12)
[2021-05-10 15:58] LABS: Albumin 1.5 G/DL (3.4-5.0); Bilirubin,Total 2.9 MG/DL (0.20-1.00); Calcium 6.4 MG/DL (8.5-10.1); Osmolality,Calculated 274.5 MOS/KG (273-304); Potassium 3.4 MMOL/L (3.5-5.1)
[2021-05-10 16:05] LABS: Eosinophils 1 % (0-10); Lymphocytes 5 % (20-55); Segmented Neutrophils 91 % (50-85); Total Cells Counted 100
[2021-05-10 16:06] LABS: Anisocytosis 1+; Macrocytosis Slight; Polychromasia Few; Smudge Cells Few
[2021-05-10 16:07] LABS: Platelet Estimate Decreased
[2021-05-10] MEDS: CYCLOBENZAPRINE 10 MG TABLET PO SCH (22:50)
[2021-05-10] MEDS: ACETAMINOPHEN 325 MG TABLET PO PRN (22:59)
[2021-05-10] MEDS: ROSUVASTATIN 20 MG TABLET PO SCH (22:59)
[2021-05-11] MEDS: metroNIDAZOLE INJ 500 MG/100 ML PREMIX IV SCH ×3 (02:22→16:54)
[2021-05-11 05:52] LABS: Basophils % 0.2 % (0.0-0.8); Hematocrit 30.3 VOL% (35.7-47.0); Hemoglobin 9.9 GM/DL (12.0-16.0); Immature Granulocytes % 12.4 %; Immature Granulocytes Absolute 1.39 #; Lymphocytes # 0.4 10*3/uL (1.4-4.0); Lymphocytes % 3.4 % (21.3-54.2); Mean Corpuscular HGB Conc 32.7 GM/DL (32-36); Monocytes % 6.1 % (1.7-12.7); NRBC # 0.07 10*3/uL; Neutrophils % 77.9 % (38.7-73.9); Platelet Count 103 T/CUMM (130-400); Red Blood Count 3.06 MC/CUMM (3.8-5.5); White Blood Count 11.2 T/CUMM (4-12)
[2021-05-11 06:25] LABS: Albumin 1.4 G/DL (3.4-5.0); Bilirubin,Total 3.3 MG/DL (0.20-1.00); Calcium 6.3 MG/DL (8.5-10.1); Osmolality,Calculated 271.7 MOS/KG (273-304); Potassium 3.5 MMOL/L (3.5-5.1); Total Protein 4.1 G/DL (6.4-8.2)
[2021-05-11] MEDS: LEVOTHYROXINE 200 MCG TABLET PO SCH (06:39)
[2021-05-11] MEDS: LEVOTHYROXINE 75 MCG TABLET PO SCH (06:39)
[2021-05-11] MEDS ORDERED: DEXTROSE 50% 25 GM/50 ML VIAL IV PRN (06:42)
[2021-05-11 06:55] LABS: Eosinophils 1 % (0-10); Lymphocytes 1 % (20-55); Metamyelocytes 12 %; Segmented Neutrophils 79 % (50-85); Total Cells Counted 100
[2021-05-11 06:56] LABS: Anisocytosis 2+; Macrocytosis 1+; Platelet Estimate Adequate; Polychromasia Slight
[2021-05-11] MEDS: DEXTROSE 5% NACL 0.9% 1,000 ML IV SCH ×2 (07:18→11:28)
[2021-05-11] MEDS: DEXTROSE 5% NACL 0.9% 250 ML IV SCH ×2 (07:18→11:52)
[2021-05-11] MEDS ORDERED: SODIUM CHLORIDE 0.9% 500 ML IV ONE (08:28)
[2021-05-11] MEDS ORDERED: SODIUM BICARBONATE 50 MEQ/50 ML VIAL IV ONE ×4 (08:50→19:11)
[2021-05-11] MEDS ORDERED: LACTATED RINGERS 2,000 ML IV ONE (08:50)
[2021-05-11] MEDS: NOREPINEPHRINE 8 MG in SODIUM CHLORIDE 0.9% 242 ML IV PRN ×4 (09:20→18:00)
[2021-05-11] MEDS ORDERED: THIAMINE 200 MG/2 ML VIAL IV SCH (09:30)
[2021-05-11 09:42] LABS: Basophils % 0.3 % (0.0-0.8); Hematocrit 25.6 VOL% (35.7-47.0); Hemoglobin 8.2 GM/DL (12.0-16.0); Immature Granulocytes % 15.6 %; Immature Granulocytes Absolute 1.52 #; Lymphocytes # 0.4 10*3/uL (1.4-4.0); Lymphocytes % 4.5 % (21.3-54.2); Mean Corpuscular Volume 102.8 FL (87-102); Mean Platelet Volume 10.9 FL (9.6-12.0); Monocytes % 5.5 % (1.7-12.7); NRBC # 0.07 10*3/uL; Neutrophils % 74.1 % (38.7-73.9); Platelet Count 87 T/CUMM (130-400); Red Blood Count 2.49 MC/CUMM (3.8-5.5); White Blood Count 9.7 T/CUMM (4-12)
[2021-05-11 09:43] LABS: ABG Base Excess -15.3 MMOL/L (-2.5-2.5); ABG HCO3 12.6 MMOL/L (20-26); ABG Oxygen Saturation 98.5 % (95-100); ABG PCO2 57.8 MM HG (35-48); ABG TCO2 15.2 MMOL/L (23-27)
[2021-05-11 09:44] LABS: ABG PH 7.032 (7.35-7.45)
[2021-05-11] MEDS ORDERED: MAGNESIUM SULF RIDER 4 GM/100 ML PREMIX IV ONE (09:59)
[2021-05-11 10:00] LABS: Alanine Aminotransferase 23 U/L (13-56); Albumin 1.2 G/DL (3.4-5.0); Alkaline Phosphatase 178 U/L (45-117); Aspartate Amino Transferase 114 U/L (0-37); Blood Urea Nitrogen 12 MG/DL (7-18); Carbon Dioxide 17 MMOL/L (21-32); Estimated Glom Filtration Rate 24 ML/MIN; Glucose 147 MG/DL (74-106); Osmolality,Calculated 288.8 MOS/KG (273-304); Potassium 3.5 MMOL/L (3.5-5.1); Sodium 144 MMOL/L (136-145)
[2021-05-11] MEDS ORDERED: FOLIC ACID INJ 1 MG in SYRINGE 1 EACH IV SCH (10:00)
[2021-05-11 10:05] LABS: Calcium 5.8 MG/DL (8.5-10.1)
[2021-05-11] MEDS: HYDROCORTISONE 100 MG VIAL IV SCH ×2 (10:06→16:53)
[2021-05-11] MEDS ORDERED: MAGNESIUM SULF RIDER 2 GM/50 ML PREMIX IV ONE ×2 (10:10)
[2021-05-11 10:26] LABS: Bilirubin,Urine Negative (Negative); Blood, Urine Small mg/dL (Negative); Glucose,Urine (UA) Negative (Negative); Hyaline Casts,Urine 21 /LPF (0-3); Ketones,Urine Negative (Negative); Mucus,Urine Occasional /LPF (Occasional); Nitrite,Urine Negative (Negative); Protein,Urine 30 MG/DL; RBC,Urine 10 /HPF (0-4); Squamous Epithelial Cell,Urine Occasional /HPF (0-10); Urine Appearance CLEAR (Clear); Urine Color Amber (Yellow); Urine Specific Gravity 1.018 (1.001-1.035)
[2021-05-11] MEDS: SODIUM BICARB INJ 150 MEQ in DEXTROSE 5% 1,000 ML IV SCH ×2 (10:45→19:06)
[2021-05-11] MEDS ORDERED: CALCIUM CHLORIDE 1,000 MG/10 ML SYRINGE IV ONE (10:57)
[2021-05-11] MEDS: CIPROFLOXACIN INJ 400 MG/200 ML PREMIX IV SCH ×2 (11:01→21:45)
[2021-05-11 11:13] LABS: Segmented Neutrophils 72 % (50-85)
[2021-05-11 11:14] LABS: Lymphocytes 7 % (20-55)
[2021-05-11 11:15] LABS: Macrocytosis Slight; Metamyelocytes 11 %; Myelocytes 4 %; Platelet Estimate Adequate; Polychromasia Slight; Total Cells Counted 100
[2021-05-11] MEDS: DOCUSATE SODIUM 100 MG CAPSULE PO SCH ×2 (11:16→21:22)
[2021-05-11] MEDS: TAMOXIFEN 10 MG TABLET PO SCH (11:17)
[2021-05-11] MEDS: POTASSIUM BICARB EFFERVESCENT 20 MEQ TAB.EFF PO SCH (11:17)
[2021-05-11] MEDS: PANTOPRAZOLE 40 MG TABLET PO SCH (11:20)
[2021-05-11] MEDS: MAGNESIUM CHLORIDE 64 MG TABLET PO SCH (11:20)
[2021-05-11] MEDS: CYANOCOBALAMIN 500 MCG TABLET PO SCH (11:21)
[2021-05-11] MEDS: ZINC GLUCONATE 50 MG TABLET PO SCH (11:21)
[2021-05-11] MEDS: allopurinoL 100 MG TABLET PO SCH (11:21)
[2021-05-11] MEDS ORDERED: NOREPINEPHRINE 4 MG/4 ML VIAL IV ONE (11:36)
[2021-05-11 14:26] LABS: Basophils % 0.5 % (0.0-0.8); Hematocrit 31.5 VOL% (35.7-47.0); Hemoglobin 9.9 GM/DL (12.0-16.0); Immature Granulocytes % 17.2 %; Immature Granulocytes Absolute 1.51 #; Lymphocytes # 0.7 10*3/uL (1.4-4.0); Lymphocytes % 8.4 % (21.3-54.2); Mean Corpuscular HGB Conc 31.4 GM/DL (32-36); Mean Corpuscular Volume 104.7 FL (87-102); Monocytes % 2.2 % (1.7-12.7); NRBC # 0.07 10*3/uL; Neutrophils % 71.7 % (38.7-73.9); Platelet Count 117 T/CUMM (130-400); Red Blood Count 3.01 MC/CUMM (3.8-5.5); Red Cell Distribution Width 22.2 % (9.3-17.3); White Blood Count 8.8 T/CUMM (4-12)
[2021-05-11] MEDS ORDERED: LORazepam 2 MG/1 ML VIAL IV PRN (14:42)
[2021-05-11 15:20] LABS: Lymphocytes 13 % (20-55); Segmented Neutrophils 83 % (50-85); Total Cells Counted 100
[2021-05-11 15:21] LABS: Polychromasia Slight
[2021-05-11 15:22] LABS: Atypical Lymphocytes Few; Pappenheimer Bodies 1+
[2021-05-11 15:23] LABS: Macrocytosis Slight
[2021-05-11] MEDS ORDERED: SODIUM CHLORIDE 0.9% 1,000 ML IV ONE (15:25)
[2021-05-11] MEDS ORDERED: SUCCINYLCHOLINE 200 MG/10 ML VIAL ONE (15:32)
[2021-05-11] MEDS ORDERED: ETOMIDATE 20 MG/10 ML VIAL IV ONE ×2 (15:32→15:35)
[2021-05-11] MEDS ORDERED: SUCCINYLCHOLINE 200 MG/10 ML VIAL IV ONE (15:35)
[2021-05-11] MEDS: PHENYLEPHRINE DRIP 40 MG/250 ML PREMIX IV PRN ×2 (15:45→21:19)
[2021-05-11] MEDS ORDERED: PANTOPRAZOLE 40 MG VIAL IV SCH (16:00)
[2021-05-11 16:17] LABS: ABG Base Excess -13.2 MMOL/L (-2.5-2.5); ABG Oxygen Saturation 99.5 % (95-100); ABG PCO2 57.4 MM HG (35-48); ABG TCO2 16.4 MMOL/L (23-27)
[2021-05-11 16:26] LABS: ABG PH 7.073 (7.35-7.45)
[2021-05-11] MEDS ORDERED: ETOMIDATE 40 MG/20 ML VIAL IV ONE (17:40)
[2021-05-11] MEDS ORDERED: SEVOFLURANE 1 UNIT/15 MINUTE INH ONE ×2 (17:40→18:58)
[2021-05-11] MEDS ORDERED: ROCURONIUM 50 MG/5 ML VIAL IV ONE (17:40)
[2021-05-11 17:42] LABS: Albumin 1.1 G/DL (3.4-5.0); Bilirubin,Total 2.3 MG/DL (0.20-1.00); Osmolality,Calculated 287.3 MOS/KG (273-304); Total Protein 3.1 G/DL (6.4-8.2)
[2021-05-11 18:08] LABS: Partial Thromboplastin Time 80.6 SECS (23.9-33.8)
[2021-05-11] MEDS ORDERED: PHENYLEPHRINE 1 MG/10 ML SYRINGE IV ONE ×3 (18:09→18:58)
[2021-05-11] MEDS ORDERED: CALCIUM CHLORIDE 1,000 MG/10 ML VIAL IV ONE ×2 (18:09→18:26)
[2021-05-11 18:10] LABS: INR 5.5
[2021-05-11] MEDS ORDERED: AMINOCAPROIC ACID 5,000 MG/20 ML VIAL ONE (18:15)
[2021-05-11 18:18] LABS: CKMB % 2.2 %
[2021-05-11 18:22] LABS: High Sensitive Troponin I* 280.5 ng/L (0-54)
[2021-05-11] MEDS ORDERED: SODIUM CHLORIDE 0.9% 1,000 ML IV PRN (19:11)
[2021-05-11 19:12] LABS: ABG Base Excess -17.3 MMOL/L (-2.5-2.5); ABG HCO3 11.2 MMOL/L (20-26); ABG Oxygen Saturation 98.4 % (95-100); ABG PCO2 31.9 MM HG (35-48); ABG TCO2 10.4 MMOL/L (23-27)
[2021-05-11] MEDS ORDERED: PHYTONADIONE INJ 10 MG in SODIUM CHLORIDE 0.9% 50 ML IV ONE (19:12)
[2021-05-11 19:15] LABS: ABG PH 7.134 (7.35-7.45)
[2021-05-11] MEDS ORDERED: NOREPINEPHRINE 16 MG in SODIUM CHLORIDE 0.9% 234 ML IV PRN (20:00)
[2021-05-11] MEDS: ROSUVASTATIN 20 MG TABLET PO SCH (21:23)
[2021-05-11 23:15] VITALS: BP 55/29
== END 2021-05-11 22:40 | disposition expired | DRG 329 ==
LOC: EDBD → EDUNIT# → N.ED 18:58 → SUATTDRO 21:50 → N.EDINP 21:50 → N.5E 05-08 → N.ICU 05-11 09:14
PROVIDERS: ADMIT Family Medicine; ATTEND Internal Medicine
PROC: COLONHP (2021-05-09 07:35)